=== PATIENT | male | born 1945 | race African-American/Black ===

== ENCOUNTER → 2016-07-09 | Outpatient (CLI) | payer MEDICARE, MEDICAID ==
[2016-07-09] VITALS (11 sets, daily range): BP systolic 103–144; BP diastolic 44–78
[~2016-07-09] MED LIST: AGGRENOX 25 MG-1 CER PO; AVPAK LEVETIRA500 MG PO; AVPAK LEVETIRA750 M1 PO; BENAZEPRIL10 MG PO; CADUET 10 MG-201 TA1 PO; CIPROFLOXACIN500 MG PO; FOSAMAX70 M1 PO; KEFLEX500 MG PO; LEVAQUIN750 M1 PO; LEVETIRACETAM500 MG PO; LIPITOR40 MG PO; LIQUID MAGNESI400 MG PO; MOTRIN800 MG PO; Meclizine25 MG PO; NEURONTIN300 MG PO; NEXIUM40 MG PO; OYSTER CALCIUM1 TA3 PO; OYSTER SHELL CA1 TA4 PO; PERCOCET 325 MG1 TA2 PO; PREDNISONE10 MG PO; PREVACID30 M1 PO; TAMSULOSIN HCL0.4 MG PO; TRAMADOL HCL50 MG PO; VITAMIN D50000 I3 PO
[2016-07-09 09:29] LABS: HEMATOCRIT 22.6 % (42.0-52.0); HEMOGLOBIN 7.2 g/dl (14.0-18.0); MEAN CELL VOLUME 96.2 fl (80.0-94.0); MEAN CORPUSCULAR HGB 30.6 pg (27.0-31.0); MEAN CORPUSCULAR HGB CONC 31.9 g/dl (33.0-37.0); MEAN PLATELET VOLUME 10.2 fl (9.6-12.3); PLATELET COUNT AUTOMATED 223 10*3/uL (130-400); RED BLOOD COUNT 2.35 10*6/uL (4.50-5.90); RED CELL DISTRI WIDTH 16.3 % (0-14.5)
[2016-07-09 09:55] LABS: ATYPICAL LYMPHS 1 % (0-0); LYMPHOCYTE # 0.7 10*3/uL (1.3-4.4); MONOCYTE # 0.3 10*3/uL (0.1-1.0); NEUTROPHIL # 0.4 10*3/uL (2.3-7.9); NEUTROPHILS 29 % (47-73); PLATELET SUFFICIENCY NORMAL (NORMAL); POLYCHROMASIA SLIGHT; SCHISTOCYTES FEW; TOTAL CELLS COUNTED 100 #CELLS
[2016-07-09 09:58] LABS: WHITE BLOOD COUNT 1.5 10*3/uL (4.8-10.8)
== END | disposition home or self-care (01) ==
LOC: TRNFUSION 02:20
PROVIDERS: Internal Medicine Hematology & Oncology
DX: C34.11 Malignant neoplasm of upper lobe, right bronchus or lung (principal)

== ENCOUNTER 2016-08-16 21:27 | Inpatient (IN) | payer MEDICAID ==
[~2016-08-16] VITALS: Ht 182.8 cm; Wt 72.7 kg
--- NOTE | ~2016-08-16 | PR ---
[place], [place] PROGRESS NOTE NAME: SUKHDEV MCDERMOTT [facility] #: [id number] UNIT #: [id number] ROOM: 511 DOCTOR: AFSANEH PHILLIPS MD BIRTHDATE: [birth year] DOS: 08/24/2016 SUBJECTIVE: The patient is doing much better. REVIEW OF SYSTEMS: HEENT: No trouble swallowing. No double vision. No loss of vision. No pain. ENT AND RESPIRATORY: No wheeze. No change in voice. No cough. No shortness of breath. No coughing up blood. No epistaxis. CARDIOLOGIC: No chest pain. No dizziness. No irregular heartbeat. No leg edema. No palpitations. No shortness of breath. HEMATOLOGIC AND LYMPH: No past transfusion. No fatigue. No loss of appetite. No easy bruising. GASTROENEROLOGIC: No change in bowel habits. No vomiting blood. No abdominal cramping. No nausea. No vomiting. No diarrhea. No constipation. No blood in stool. MALE REPRODUCTIVE: No testicular pain. No penile discharge. MUSCULOSKELETAL: No back pain. No muscle pain or weakness. No tingling/numbness. UROLOGIC: No pain with urination. No difficulty urinating. No frequent urination. NEUROLOGIC: No burning pain in feet. No trouble with coordination. No loss of consciousness. No headache. No tingling/numbness. No memory loss. PHYSICAL EXAMINATION: GENERAL: Pleasant gentleman, in no apparent distress. VITAL SIGNS: Stable. He is afebrile. HEENT: Normocephalic, atraumatic. NECK AND THYROID: Supple. No JVD, thyromegaly, or lymphadenopathy. HEART: Normal S1, S2. Regular rate and rhythm. LUNGS: Clear to auscultation and percussion. ABDOMEN: Soft. Nontender, nondistended. Bowel sounds present. EXTREMITIES: Normal ROM. No clubbing. No edema. LABORATORY DATA: White count 2.1, hemoglobin 8.6, hematocrit 25.6, platelet count 30,000. ANC 800. ASSESSMENT: 1. Metastatic lung cancer, responding to chemotherapy. 2. Pancytopenia secondary to chemotherapy, which is improving. 3. Anemia of neoplastic disorder, status post multiple units of packed red blood cells. PLAN: Overall, he is doing much better. The patient will be going home soon. Advised if any fever or chills, to call us. The patient is not bleeding or bruising at this time. We will also discuss with Dr. Alvarez. [place], [place] PROGRESS NOTE NAME: SUKHDEV MCDERMOTT UNIT #: [id number] ROOM: [facility] DOCTOR: AFSANEH PHILLIPS MD BIRTHDATE: [birth year] AFSANEH PHILLIPS MD CM:PNTRANS [phone] AFSANEH PHILLIPS MD 08/25/16 0927 interface
--- NOTE | ~2016-08-16 | PR ---
[place], [place] PROGRESS NOTE NAME: SUKHDEV MCDERMOTT [facility] #: [id number] UNIT #: [id number] ROOM: 511 DOCTOR: ROBERT FRANCO MD BIRTHDATE: [birth year] DOS: The patient has been admitted to the hospital with pancytopenia due to chemotherapy. He has history of carcinoma of the right lung and has had radiation therapy before, chemotherapy now, history of hypotension, pneumonitis and sepsis in the past with COPD and emphysema. The patient seemed to be fairly comfortable. Not in any distress. Chest x-ray shows slightly increased patchy density in the perihilar right upper lobe. CBC showed white count 1700, RBC 2.84, hemoglobin 8.7, platelet count is 22, neutrophil 57, lymphocyte 25, eosinophil 11 and neutrophil is 1. The patient is being seen by Dr. Tilley, who is tax assistant/oncologist who is taking care of this patient before. His blood pressure 100/50, pulse 82, respirations 18, temperature 98.8. ROBERT FRANCO MD CM:PNTRANS [id number] [id number] ROBERT FRANCO MD 08/23/16 0522 interface
--- NOTE | ~2016-08-16 | PR ---
[place], [place] PROGRESS NOTE NAME: SUKHDEV MCDERMOTT [facility] #: [id number] UNIT #: [id number] ROOM: 511 DOCTOR: AFSANEH PHILLIPS MD BIRTHDATE: [birth year] DOS: 08/18/2016 SUBJECTIVE: The patient is doing much better. He is sitting on the side of the bed and eating his breakfast. REVIEW OF SYSTEMS HEENT: No trouble swallowing. No double vision. No loss of vision. No pain. ENT AND RESPIRATORY: No wheeze. No change in voice. No cough. No shortness of breath. No coughing up blood. No epistaxis. CARDIOLOGIC: No chest pain. No dizziness. No irregular heartbeat. No leg edema. No palpitations. No shortness of breath. HEMATOLOGIC AND LYMPH: No past transfusion. No fatigue. No loss of appetite. No easy bruising. GASTROENTEROLOGIC: No change in bowel habits. No vomiting blood. No abdominal cramping. No nausea. No vomiting. No diarrhea. No constipation. No blood in stool. MALE REPRODUCTIVE: No testicular pain. No penile discharge. MUSCULOSKELETAL: No back pain. No muscle pain or weakness. No tingling/numbness. UROLOGIC: No pain with urination. No difficulty urinating. No frequent urination. NEUROLOGIC: No burning pain in feet. No trouble with coordination. No loss of consciousness. No headache. No tingling/numbness. No memory loss. PHYSICAL EXAMINATION: GENERAL: He is a pleasant gentleman in no apparent distress. VITAL SIGNS: Stable. He is afebrile. HEENT: Normocephalic, atraumatic NECK AND THYROID: Supple. No JVD, thyromegaly, or lymphadenopathy. HEART: Normal S1, S2. Regular rate and rhythm. LUNGS: Clear to auscultation and percussion. ABDOMEN: Soft. Nontender, nondistended. Bowel sounds present. EXTREMITIES: Normal ROM. No clubbing. No edema. LABORATORY DATA: White count of 1.1, hemoglobin 9.2, hematocrit 27.5, platelet count of 49,000, ANC of 700, glucose of 89. EGFR is more than 60. Sodium 146, potassium 4.4, chloride 111, bicarbonate 27, calcium 8.0. ASSESSMENT: 1. Metastatic nonsmall cell lung cancer with response to chemotherapy. 2. Pancytopenia secondary to chemotherapy. 3. Status post multiple units of platelets. PLAN: We can continue growth factors. His counts are getting better. If counts are getting better, we will keep a close watch at this time. Advised if any bleeding, bruising, petechiae to call us. Otherwise, close followup. I discussed these findings with the patient's sister also. Ample time was given to the family to ask me questions. [place], [place] PROGRESS NOTE NAME: SUKHDEV MCDERMOTT UNIT #: [id number] ROOM: 511 DOCTOR: AFSANEH PHILLIPS MD BIRTHDATE: [birth year] AFSANEH PHILLIPS MD CM:PNTRANS [id number] AFSANEH PHILLIPS MD 08/18/162106 interface
--- NOTE | ~2016-08-16 | PR ---
[place], [place] PROGRESS NOTE NAME: SUKHDEV MCDERMOTT [facility] #: [id number] UNIT #: [id number] ROOM: 511 DOCTOR: AFSANEH PHILLIPS MD BIRTHDATE: [birth year] DOS: 08/23/2016 SUBJECTIVE: The patient is doing much better. He is feeling good. REVIEW OF SYSTEMS: HEENT: No trouble swallowing. No double vision. No loss of vision. No pain. ENT AND RESPIRATORY: No wheeze. No change in voice. No cough. No shortness of breath. No coughing up blood. No epistaxis. CARDIOLOGIC: No chest pain. No dizziness. No irregular heartbeat. No leg edema. No palpitations. No shortness of breath. HEMATOLOGIC AND LYMPH: No past transfusion. No fatigue. No loss of appetite. No easy bruising. GASTROENEROLOGIC: No change in bowel habits. No vomiting blood. No abdominal cramping. No nausea. No vomiting. No diarrhea. No constipation. No blood in stool. MALE REPRODUCTIVE: No testicular pain. No penile discharge. MUSCULOSKELETAL: No back pain. No muscle pain or weakness. No tingling/numbness. UROLOGIC: No pain with urination. No difficulty urinating. No frequent urination. NEUROLOGIC: No burning pain in feet. No trouble with coordination. No loss of consciousness. No headache. No tingling/numbness. No memory loss. PHYSICAL EXAMINATION: GENERAL: Pleasant gentleman, in no apparent distress. VITAL SIGNS: Stable. He is afebrile. HEENT: Normocephalic, atraumatic. NECK AND THYROID: Supple. No JVD, thyromegaly, or lymphadenopathy. HEART: Normal S1, S2. Regular rate and rhythm. LUNGS: Clear to auscultation and percussion. ABDOMEN: Soft. Nontender, nondistended. Bowel sounds present. EXTREMITIES: Normal ROM. No clubbing. No edema. LABORATORY DATA: White count of 1.9, hemoglobin of 9.0, hematocrit 26.9, platelet count of 35,000. ASSESSMENT: 1. Pancytopenia, which is improving. 2. Thrombocytopenia is improving. 3. Nonsmall cell lung cancer. PLAN: Overall, he is doing better. I expect the counts to improve further. In the meantime, continue present management. Discussed with the patient. [place], [place] PROGRESS NOTE NAME: SUKHDEV MCDERMOTT UNIT #: [id number] ROOM: 511 DOCTOR: AFSANEH PHILLIPS MD BIRTHDATE: [birth year] AFSANEH PHILLIPS MD CM:PNYRIS 19 AFSANEH PHILLIPS MD 08/23/162120 interface
--- NOTE | ~2016-08-16 | CON ---
[place], [place] REPORT OF CONSULTATION NAME: SUKHDEV MCDERMOTT [facility] #: [id number] UNIT #: [id number] ROOM: 511 DOCTOR: AFSANEH PHILLIPS MD BIRTHDATE: [birth year] DOS: 08/17/2016 REPORT TO THE [employer] HISTORY OF PRESENT ILLNESS: The patient is a pleasant 71-year-old black gentleman with a history of metastatic lung cancer, undergoing treatment. The last PET scan showed a response to treatment. He was in the office and a CBC was drawn. In the evening, I was called that she has pancytopenia with a platelet count of 8000 and subsequently was advised to go to the Emergency Room for further evaluation and management. Subsequently was admitted and consulted for further treatment followup. PAST MEDICAL HISTORY: Significant for metastatic lung cancer with response to chemotherapy, history of COPD, GERD, history of epilepsy, history of stroke, hyperlipidemia, osteoporosis, and peripheral neuropathy. PAST SURGICAL HISTORY: Right knee surgery, history of cholecystectomy. SOCIAL HISTORY: Current smoker. He smoked 2 packs per day for a long time. Denies any drug or alcohol use. FAMILY HISTORY: Father of unknown cause. Mother at age 60. ALLERGIES: No allergies. MEDICATIONS: Fosamax, Aggrenox, Lipitor, oyster calcium, vitamin D, Nexium, Neurontin, ____, meclizine, and Ultram. REVIEW OF SYSTEMS CONSTITUTIONAL: No chills. No fatigue. No fever. No loss of appetite. No night sweats. No weakness. No weight loss. HEENT: No trouble swallowing. No loss of smell. No loss of hearing. No double vision. No pain. No discharge. ENT AND RESPIRATORY: No wheeze. No sore throat. No change in voice. No hearing loss. No nose bleed. No cough. No trouble breathing through nose. No shortness of breath. No coughing up blood. No epistaxis. CARDIOVASCULAR: No chest pain. No dizziness. No irregular heartbeat. No leg edema. No pain in legs while walking. No palpitations. No shortness of breath. DERMATOLOGIC: No acne. No hives. No laceration. No mole. No rash. ENDOCRINE: No cold intolerance. No diabetes. No fatigue. No hot flashes. No polydipsia. No polyuria. No urinating frequently. No weight loss. HEMATOLOGIC AND LYMPH: No fatigue. No easy bruising. GASTROENTEROLOGIC: No change in bowel habits. No indigestion. No frequent bloating. No vomiting blood. No abdominal cramping. No nausea. No heartburn. No vomiting. No abdominal pain. No dysphagia. No diarrhea. No constipation. No blood in stool. MALE REPRODUCTIVE: No testicular pain. No difficulty with erection. No diminished sexual drive. No penile discharge. MUSCULOSKELETAL: No back pain. No muscle pain or weakness. No neck pain. No [place], [place] REPORT OF CONSULTATION NAME: SUKHDEV MCDERMOTT UNIT #: [id number] ROOM: 511 DOCTOR: AFSANEH PHILLIPS MD BIRTHDATE: [birth year] tingling/numbness. No swelling/bruising. No osteoporosis treatment. OPTHALMOLOGIC: No double vision. No diminished vision. No loss of vision. UROLOGIC: No dysuria. No frequent nighttime urination. No pain with urination. No difficulty urinating. No blood in urine. No frequent urination. No urinary incontinence. NEUROLOGIC: No loss of sensation in specific body area. No vertigo. No burning pain in feet. No trouble with balance. No trouble with coordination. No loss of consciousness. No loss of feeling/power. No confusion. No headache. No tingling/numbness. PSYCHOLOGIC: No tinnitus. No headaches. No shortness of breath. No weight decrease. No nausea. No vomiting. No abdominal discomfort. No constipation. No diarrhea. No depression. No anxiety. PHYSICAL EXAMINATION: GENERAL: General appearance: Pleasant gentleman in no apparent distress. VITAL SIGNS: Blood pressure is 164/68, respirations 18, pulse 69, temperature 98.7. HEENT: Oral mucosa appears intact. The external ears are normal in appearance. Nares are patent without lesions, exudates, erythema, or inflammation. Tongue is symmetrical. Uvula is midline. NECK AND THYROID: Neck supple without palpable masses. Trachea is midline. No thyromegaly. No carotid bruit or JVD. BREASTS: Normal. Nipples unremarkable. No drainage. No lumps felt on either side. HEART: Normal S1, S2, without significant murmur, rub, or gallop. LUNGS: Clear to auscultation and percussion with good air entry bilaterally. The patient is breathing easily without the use of accessory muscles. Diaphragmatic excursions are intact. ABDOMEN: No costovertebral angle tenderness. Soft. No organomegaly or masses. Nontender. No hernias present. Liver and spleen are not palpable. LYMPHATIC: No adenopathy noted in the cervical, supraclavicular, axillary, or inguinal regions. NEUROLGIC: Nonfocal. Oriented to person, place, and time. MENTAL STATUS: Appropriate for mood and affect. PERIPHERAL PULSES: No varicosities. Femoral and pedal pulses are palpable. EXTREMITIES: Without cyanosis, clubbing, or edema. No gross anomalies. LABORATORY DATA: Sodium 146, potassium 4.4, chloride 111, bicarbonate 27, BUN 25, EGFR is more than 60. White count of 4.9, hemoglobin 9.3, hematocrit 28.0, platelet count of 61,000. From 08/16/2016, white count of 1.0, hemoglobin 9.0, hematocrit 27.5, MCV 93.2, and platelet count of 7000. ASSESSMENT: 1. Pancytopenia secondary to chemotherapy. 2. Thrombocytopenia secondary to chemotherapy. 3. Metastatic lung cancer. 4. Gastroesophageal reflux disease. PLAN: The patient got 6 units of packed RBC and was started on growth factors. He is on isolation at this point. If he starts experiencing fever, he needs [place], [place] REPORT OF CONSULTATION NAME: SUKHDEV MCDERMOTT UNIT #: [id number] ROOM: [facility] DOCTOR: AFSANEH PHILLIPS MD BIRTHDATE: [birth year] antibiotics ____ close followup until counts get better, then discharge. I had detailed discussion with the patient about it, seemed to understand it. Also discussed with the daughter. Ample time was given for the family to ask me questions. Thanks for consulting and letting me participate in the care of this interesting patient. AFSANEH PHILLIPS MD CM:CONSTR:REPORT OF CONSULTATION 1602 08/18/16 0357 interface
--- NOTE | ~2016-08-16 | PR ---
[place], [place] PROGRESS NOTE NAME: SUKHDEV MCDERMOTT [facility] #: [id number] UNIT #: [id number] ROOM: 511 DOCTOR: AFSANEH PHILLIPS MD BIRTHDATE: [birth year] DOS: 08/20/2016 SUBJECTIVE: The patient is doing much better. REVIEW OF SYSTEMS: HEENT: No trouble swallowing. No double vision. No loss of vision. No pain. ENT AND RESPIRATORY: No wheeze. No change in voice. No cough. No shortness of breath. No coughing up blood. No epistaxis. CARDIOLOGIC: No chest pain. No dizziness. No irregular heartbeat. No leg edema. No palpitations. No shortness of breath. HEMATOLOGIC AND LYMPH: No past transfusion. No fatigue. No loss of appetite. No easy bruising. GASTROENEROLOGIC: No change in bowel habits. No vomiting blood. No abdominal cramping. No nausea. No vomiting. No diarrhea. No constipation. No blood in stool. MALE REPRODUCTIVE: No testicular pain. No penile discharge. MUSCULOSKELETAL: No back pain. No muscle pain or weakness. No tingling/numbness. UROLOGIC: No pain with urination. No difficulty urinating. No frequent urination. NEUROLOGIC: No burning pain in feet. No trouble with coordination. No loss of consciousness. No headache. No tingling/numbness. No memory loss. PHYSICAL EXAMINATION: GENERAL: Pleasant gentleman, in no apparent distress. VITAL SIGNS: Stable. Blood pressure 126/58, respirations 18, pulse 81, temperature 98.5. HEENT: Normocephalic, atraumatic. NECK AND THYROID: Supple. No JVD, thyromegaly, or lymphadenopathy. HEART: Normal S1, S2. Regular rate and rhythm. LUNGS: Clear to auscultation and percussion. ABDOMEN: Soft. Nontender, nondistended. Bowel sounds present. EXTREMITIES: Normal ROM. No clubbing. No edema. LABORATORY DATA: Sodium 146, potassium 4.3, chloride 114, bicarb 22, BUN 22, EGFR more than 60. AST 13, ALT 17. White count of 1.4, hemoglobin 7.9, hematocrit 23.4, platelet count of 25,000. ASSESSMENT: 1. Pancytopenia secondary to chemotherapy. 2. Progressive anemia of neoplastic disorder. 3. Neutropenia. 4. Gastroesophageal reflux disease. PLAN: We will give a couple of units of packed RBCs. In addition, we will continue growth factors. Overall, he is doing much better, advised to ambulate. The sister was present at the time of discussion. [place], [place] PROGRESS NOTE NAME: SUKHDEV MCDERMOTT UNIT #: [id number] ROOM: [facility] DOCTOR: AFSANEH PHILLIPS MD BIRTHDATE: [birth year] AFSANEH PHILLIPS MD CM:PNYRIS 1451 [id number] AFSANEH PHILLIPS MD 08/21/16 0416 interface
--- NOTE | ~2016-08-16 | PR ---
[place], [place] PROGRESS NOTE [facility] [id number] UNIT #: [id number] ROOM: 511 DOCTOR: AFSANEH PHILLIPS MD BIRTHDATE: [birth year] DOS: 08/19/2016 SUBJECTIVE: The patient is doing much better, feels good. OBJECTIVE: GENERAL: Pleasant gentleman, in no apparent distress. VITAL SIGNS: Blood pressure 137/71, respirations 20, pulse 90, temperature 98.0. HEENT: Normocephalic, atraumatic NECK AND THYROID: Supple. No JVD, thyromegaly, or lymphadenopathy. HEART: Normal S1, S2. Regular rate and rhythm. LUNGS: Clear to auscultation and percussion. ABDOMEN: Soft. Nontender, nondistended. Bowel sounds present. EXTREMITIES: Normal ROM. No clubbing. No edema. LABORATORY DATA: White count of 1.1, hemoglobin 8.3, hematocrit 24.5, platelet count of 33,000. ANC of 700. Glucose 87, BUN 22, EGFR is more than 60, sodium 144, potassium 4.1, chloride 111, bicarbonate 23, calcium 7.7, total protein 6.2. SGOT 13, SGPT 17. ASSESSMENT: 1. Pancytopenia secondary to chemotherapy, which is improving. 2. Metastatic lung cancer. 3. Thrombocytopenia, which is getting better. PLAN: Overall, he is doing much better. We will continue the growth factors, and we will be also giving him a unit of packed RBC and discussed with the patient. AFSANEH PHILLIPS MD CM:PNTRANS 0840 AFSANEH PHILLIPS MD 08/19/1625 interface
--- NOTE | ~2016-08-16 | PR ---
[place], [place] PROGRESS NOTE NAME: SUKHDEV MCDERMOTT [facility] #: [id number] UNIT #: [id number] ROOM: 511 DOCTOR: AFSANEH PHILLIPS MD BIRTHDATE: [birth year] DOS: 08/21/2016 SUBJECTIVE: The patient is doing better. He got one unit of blood, and he developed fever. Subsequently, blood cultures were sent his fever subsided. REVIEW OF SYSTEMS HEENT: No trouble swallowing. No double vision. No loss of vision. No pain. ENT AND RESPIRATORY: No wheeze. No change in voice. No cough. No shortness of breath. No coughing up blood. No epistaxis. CARDIOLOGIC: No chest pain. No dizziness. No irregular heartbeat. No leg edema. No palpitations. No shortness of breath. HEMATOLOGIC AND LYMPH: No past transfusion. No fatigue. No loss of appetite. No easy bruising. GASTROENEROLOGIC: No change in bowel habits. No vomiting blood. No abdominal cramping. No nausea. No vomiting. No diarrhea. No constipation. No blood in stool. MALE REPRODUCTIVE: No testicular pain. No penile discharge. MUSCULOSKELETAL: No back pain. No muscle pain or weakness. No tingling/numbness. UROLOGIC: No pain with urination. No difficulty urinating. No frequent urination. NEUROLOGIC: No burning pain in feet. No trouble with coordination. No loss of consciousness. No headache. No tingling/numbness. No memory loss. PHYSICAL EXAMINATION GENERAL: Pleasant gentleman in no apparent distress. VITAL SIGNS: Stable. He is afebrile. HEENT: Normocephalic, atraumatic. NECK AND THYROID: Supple. No JVD, thyromegaly, or lymphadenopathy. HEART: Normal S1, S2. Regular rate and rhythm. LUNGS: Clear to auscultation and percussion. ABDOMEN: Soft. Nontender, nondistended. Bowel sounds present. EXTREMITIES: Normal ROM. No clubbing. No edema. LABORATORY DATA: White count of 1.7, hemoglobin of 8.7, hematocrit 25.6, platelet count 22,000, ANC 1000. Glucose of 83, BUN of 20, EGFR is more than 60, sodium 146, potassium 3.9, chloride 113, bicarbonate 23, calcium 7.8. ASSESSMENT: 1. Nonsmall cell lung cancer with response to chemotherapy. 2. Pancytopenia secondary to chemotherapy. 3. Status post 1 unit of packed red blood cells. 4. History of epilepsy. PLAN: Overall, he is doing much better. The patient was advised to ambulate. He will continue growth factors. He may need another unit of blood before discharge. The patient was started on broad spectrum antibiotics by resident. We will wait for the blood cultures to come back. Depending upon that, further intervention. I had a detailed discussion with the patient about it and seemed [place], [place] PROGRESS NOTE NAME: SUKHDEV MCDERMOTT UNIT #: [id number] ROOM: 511 DOCTOR: JACQUELINE CLARKE,AFSANEH BIRTHDATE: [birth year] to understand it. Ample time was given to the patient to ask me questions. AFSANEH PHILLIPS MD CM:PNTRANS [id number] AFSANEH PHILLIPS MD 08/22/16 1106 interface
--- NOTE | ~2016-08-16 | PR ---
[place], [place] PROGRESS NOTE NAME: SUKHDEV MCDERMOTT [facility] #: [id number] UNIT #: [id number] ROOM: 511 DOCTOR: ROBERT FRANCO MD BIRTHDATE: [birth year] DOS: SUBJECTIVE: The patient is admitted to hospital with non-small cell lung carcinoma responding to chemotherapy, ____ pancytopenia secondary to chemotherapy. He is gradually getting better and is being seen by Dr. Tilley. Blood culture and sensitivity did not grow any bacteria. CBC today showed white count of ____, RBC 2.77, hemoglobin 8.5, 48% neutrophils, 24% lymphocytes, 83% monocyte, 7% eosinophil, 3% myelocytes and this CBC slightly better than yesterday, not too much difference except 0.1% better. Chest x-ray shows slightly increased patchy density in the perihilar area right upper lobe, otherwise no significant change. OBJECTIVE: VITAL SIGNS: Blood pressure is 130/60, pulse 70, respirations 18, temperature 98.4. HEART: Regular. CHEST: Occasional wheeze. No crepitation. Rest of examination unremarkable. ROBERT FRANCO MD CM:PNTRANS 1412 0159 ROBERT FRANCO MD 08/23/16 0245 interface
[~2016-08-16 21:27] MED LIST changes: -LEVETIRACETAM500 MG PO; -Meclizine25 MG PO
[2016-08-16 22:30] LABS: HEMATOCRIT 27.5 % (42.0-52.0); MEAN CELL VOLUME 93.2 fl (80.0-94.0); MEAN CORPUSCULAR HGB 30.5 pg (27.0-31.0); MEAN CORPUSCULAR HGB CONC 32.7 g/dl (33.0-37.0); RED BLOOD COUNT 2.95 10*6/uL (4.50-5.90); RED CELL DISTRI WIDTH 16.1 % (0-14.5)
[2016-08-16 22:34] LABS: PLATELET COUNT AUTOMATED 7 10*3/uL (130-400)
[2016-08-16] MEDS ORDERED: Meclizine25 MG PO (22:46)
[2016-08-16 22:48] LABS: BUN 25 mg/dl (7-24); CARBON DIOXIDE 27 mmol/L (21-32); CHLORIDE 111 mmol/L (98-107); EST GLOM FILT AFRICAN AMERICAN > 60 ml/min; GLUCOSE 89 mg/dL (65-99); POTASSIUM 4.4 mmol/L (3.5-5.1); SODIUM 146 mmol/L (136-145)
[2016-08-16 22:56] LABS: LYMPHOCYTE # 0.5 10*3/uL (1.3-4.4); NEUTROPHIL # 0.5 10*3/uL (2.3-7.9); NEUTROPHILS 48 % (47-73); PLATELET SUFFICIENCY LOW (NORMAL); TOTAL CELLS COUNTED 100 #CELLS
[2016-08-17 07:01] LABS: HEMOGLOBIN 9.3 g/dl (14.0-18.0); MEAN CELL VOLUME 92.4 fl (80.0-94.0); MEAN CORPUSCULAR HGB 30.7 pg (27.0-31.0); MEAN CORPUSCULAR HGB CONC 33.2 g/dl (33.0-37.0); MEAN PLATELET VOLUME 10.3 fl (9.6-12.3); RED BLOOD COUNT 3.03 10*6/uL (4.50-5.90)
[2016-08-17 07:03] LABS: PLATELET COUNT AUTOMATED 61 10*3/uL (130-400)
[2016-08-17 07:34] LABS: LYMPHOCYTE # 0.4 10*3/uL (1.3-4.4); NEUTROPHIL # 0.5 10*3/uL (2.3-7.9); NEUTROPHILS 56 % (47-73); PLATELET SUFFICIENCY LOW (NORMAL); TEAR DROP CELLS FEW; TOTAL CELLS COUNTED 50 #CELLS
[2016-08-17 07:38] LABS: WHITE BLOOD COUNT 0.9 10*3/uL (4.8-10.8)
[2016-08-18 07:09] LABS: HEMATOCRIT 27.5 % (42.0-52.0); HEMOGLOBIN 9.2 g/dl (14.0-18.0); MEAN CELL VOLUME 90.8 fl (80.0-94.0); MEAN CORPUSCULAR HGB 30.4 pg (27.0-31.0); MEAN CORPUSCULAR HGB CONC 33.5 g/dl (33.0-37.0); MEAN PLATELET VOLUME 10.2 fl (9.6-12.3); NUCLEATED RED BLOOD CELL 1.8 % (0.0-0.0); PLATELET COUNT AUTOMATED 49 10*3/uL (130-400); RED BLOOD COUNT 3.03 10*6/uL (4.50-5.90); RED CELL DISTRI WIDTH 15.9 % (0-14.5)
[2016-08-18 07:30] LABS: BASOPHILS 2 % (0-1); LYMPHOCYTE # 0.4 10*3/uL (1.3-4.4); NEUTROPHIL # 0.7 10*3/uL (2.3-7.9); NEUTROPHILS 64 % (47-73); PLATELET SUFFICIENCY LOW (NORMAL); POLYCHROMASIA SLIGHT; TEAR DROP CELLS FEW; TOTAL CELLS COUNTED 50 #CELLS
[2016-08-18 07:36] LABS: WHITE BLOOD COUNT 1.1 10*3/uL (4.8-10.8)
[2016-08-19 05:59] LABS: HEMATOCRIT 24.5 % (42.0-52.0); HEMOGLOBIN 8.3 g/dl (14.0-18.0); MEAN CELL VOLUME 90.7 fl (80.0-94.0); MEAN CORPUSCULAR HGB 30.7 pg (27.0-31.0); MEAN CORPUSCULAR HGB CONC 33.9 g/dl (33.0-37.0); MEAN PLATELET VOLUME 9.4 fl (9.6-12.3)
[2016-08-19 06:09] LABS: ALKALINE PHOSPHATASE 88 U/L (45-117); BILIRUBIN, TOTAL 0.3 mg/dl (0.2-1.0); BUN 22 mg/dl (7-24); CARBON DIOXIDE 23 mmol/L (21-32); CHLORIDE 111 mmol/L (98-107); EST GLOM FILT AFRICAN AMERICAN > 60 ml/min; GLUCOSE 87 mg/dL (65-99); POTASSIUM 4.1 mmol/L (3.5-5.1); SGOT/AST 13 IU/L (3-35); SGPT/ALT 17 U/L (12-78); SODIUM 144 mmol/L (136-145); TOTAL PROTEIN 6.2 gm/dL (6.4-8.2)
[2016-08-19 06:12] LABS: PLATELET COUNT AUTOMATED 33 10*3/uL (130-400)
[2016-08-19 06:51] LABS: EOSINOPHIL # 0.1 10*3/uL (0-0.4); EOSINOPHILS 6 % (1-4); LYMPHOCYTE # 0.3 10*3/uL (1.3-4.4); NEUTROPHIL # 0.7 10*3/uL (2.3-7.9); NEUTROPHILS 61 % (47-73); OVALOCYTES FEW; PLATELET SUFFICIENCY LOW (NORMAL); POLYCHROMASIA SLIGHT; TEAR DROP CELLS FEW; TOTAL CELLS COUNTED 54 #CELLS
[2016-08-19 06:54] LABS: WHITE BLOOD COUNT 1.1 10*3/uL (4.8-10.8)
[2016-08-19 13:29] LABS: HEMATOCRIT 27.6 % (42.0-52.0); MEAN CELL VOLUME 93.6 fl (80.0-94.0); MEAN CORPUSCULAR HGB 30.5 pg (27.0-31.0); MEAN CORPUSCULAR HGB CONC 32.6 g/dl (33.0-37.0); MEAN PLATELET VOLUME 9.8 fl (9.6-12.3); PLATELET COUNT AUTOMATED 35 10*3/uL (130-400); RED BLOOD COUNT 2.95 10*6/uL (4.50-5.90); RED CELL DISTRI WIDTH 15.9 % (0-14.5)
[2016-08-19 13:44] LABS: BUN 18 mg/dl (7-24); CARBON DIOXIDE 17 mmol/L (21-32); CHLORIDE 106 mmol/L (98-107); CKMB 1.2 ng/ml (0.5-3.6); CPK 216 U/L (39-308); EST GLOM FILT AFRICAN AMERICAN > 60 ml/min; GLUCOSE 74 mg/dL (65-99); LDH 200 U/L (87-241); POTASSIUM 3.8 mmol/L (3.5-5.1); SODIUM 142 mmol/L (136-145)
[2016-08-19 13:48] LABS: BURR CELLS FEW; LYMPHOCYTE # 0.4 10*3/uL (1.3-4.4); NEUTROPHIL # 0.5 10*3/uL (2.3-7.9); NEUTROPHILS 52 % (47-73); PLATELET SUFFICIENCY LOW (NORMAL); TEAR DROP CELLS FEW; TOTAL CELLS COUNTED 50 #CELLS; TROPONIN I < 0.015 ng/ml (<0.045)
[2016-08-19 13:51] LABS: WHITE BLOOD COUNT 0.9 10*3/uL (4.8-10.8)
[2016-08-19] MEDS ORDERED: LEVETIRACETAM500 MG PO (17:20)
[2016-08-20 06:59] LABS: HEMATOCRIT 23.4 % (42.0-52.0); HEMOGLOBIN 7.9 g/dl (14.0-18.0); MEAN CORPUSCULAR HGB 30.5 pg (27.0-31.0); MEAN CORPUSCULAR HGB CONC 33.8 g/dl (33.0-37.0); MEAN PLATELET VOLUME 9.3 fl (9.6-12.3); NUCLEATED RED BLOOD CELL 1.5 % (0.0-0.0); RED BLOOD COUNT 2.59 10*6/uL (4.50-5.90); RED CELL DISTRI WIDTH 15.9 % (0-14.5)
[2016-08-20 07:06] LABS: ALBUMIN 2.8 gm/dl (3.1-4.5); ALKALINE PHOSPHATASE 84 U/L (45-117); BILIRUBIN, TOTAL 0.3 mg/dl (0.2-1.0); BUN 22 mg/dl (7-24); CARBON DIOXIDE 22 mmol/L (21-32); CHLORIDE 114 mmol/L (98-107); EST GLOM FILT AFRICAN AMERICAN > 60 ml/min; GLUCOSE 93 mg/dL (65-99); POTASSIUM 4.3 mmol/L (3.5-5.1); SGOT/AST 13 IU/L (3-35); SGPT/ALT 17 U/L (12-78); SODIUM 146 mmol/L (136-145)
[2016-08-20 07:14] LABS: MEAN CELL VOLUME 90.3 fl (80.0-94.0)
[2016-08-20 07:29] LABS: EOSINOPHILS 3 % (1-4); LYMPHOCYTE # 0.5 10*3/uL (1.3-4.4); MONOCYTE # 0.1 10*3/uL (0.1-1.0); NEUTROPHIL # 0.7 10*3/uL (2.3-7.9); NEUTROPHILS 53 % (47-73); OVALOCYTES FEW; PLATELET SUFFICIENCY LOW (NORMAL); POLYCHROMASIA SLIGHT; TEAR DROP CELLS FEW; TOTAL CELLS COUNTED 100 #CELLS
[2016-08-20 07:32] LABS: PLATELET COUNT AUTOMATED 25 10*3/uL (130-400); WHITE BLOOD COUNT 1.4 10*3/uL (4.8-10.8)
[2016-08-21 06:54] LABS: HEMATOCRIT 25.6 % (42.0-52.0); HEMOGLOBIN 8.7 g/dl (14.0-18.0); MEAN CELL VOLUME 90.1 fl (80.0-94.0); MEAN CORPUSCULAR HGB 30.6 pg (27.0-31.0); MEAN PLATELET VOLUME 10.3 fl (9.6-12.3); RED BLOOD COUNT 2.84 10*6/uL (4.50-5.90); RED CELL DISTRI WIDTH 15.8 % (0-14.5)
[2016-08-21 07:20] LABS: BUN 20 mg/dl (7-24); CARBON DIOXIDE 23 mmol/L (21-32); EST GLOM FILT AFRICAN AMERICAN > 60 ml/min; GLUCOSE 83 mg/dL (65-99)
[2016-08-21 07:21] LABS: EOSINOPHIL # 0.2 10*3/uL (0-0.4); EOSINOPHILS 11 % (1-4); HYPOCHROMIA SLIGHT; LYMPHOCYTE # 0.4 10*3/uL (1.3-4.4); MONOCYTE # 0.1 10*3/uL (0.1-1.0); NEUTROPHILS 57 % (47-73); PLATELET SUFFICIENCY LOW (NORMAL); PROMYELOCYTES 1 % (0-0); ROULEAUX MODERATE; SCHISTOCYTES FEW; TOTAL CELLS COUNTED 100 #CELLS
[2016-08-21 07:23] LABS: CHLORIDE 113 mmol/L (98-107); POTASSIUM 3.9 mmol/L (3.5-5.1); SODIUM 146 mmol/L (136-145)
[2016-08-21 07:24] LABS: WHITE BLOOD COUNT 1.7 10*3/uL (4.8-10.8)
[2016-08-21 07:25] LABS: PLATELET COUNT AUTOMATED 22 10*3/uL (130-400)
[2016-08-22 06:22] LABS: HEMOGLOBIN 8.5 g/dl (14.0-18.0); MEAN CELL VOLUME 90.3 fl (80.0-94.0); MEAN CORPUSCULAR HGB 30.7 pg (27.0-31.0); MEAN PLATELET VOLUME 11.5 fl (9.6-12.3); NUCLEATED RED BLOOD CELL 1.1 % (0.0-0.0); RED BLOOD COUNT 2.77 10*6/uL (4.50-5.90); RED CELL DISTRI WIDTH 15.9 % (0-14.5)
[2016-08-22 06:40] LABS: EOSINOPHIL # 0.1 10*3/uL (0-0.4); EOSINOPHILS 7 % (1-4); LYMPHOCYTE # 0.4 10*3/uL (1.3-4.4); MONOCYTE # 0.3 10*3/uL (0.1-1.0); MYELOCYTES 3 % (0-0); NEUTROPHIL # 0.9 10*3/uL (2.3-7.9); NEUTROPHILS 48 % (47-73); PLATELET SUFFICIENCY LOW (NORMAL); POLYCHROMASIA SLIGHT; ROULEAUX MODERATE; SCHISTOCYTES FEW; TOTAL CELLS COUNTED 100 #CELLS
[2016-08-22 06:43] LABS: PLATELET COUNT AUTOMATED 19 10*3/uL (130-400); WHITE BLOOD COUNT 1.8 10*3/uL (4.8-10.8)
[2016-08-23 00:05] LABS: LEVETIRACETAM (KEPPRA) 716936 None Detected ug/mL (10.0-40.0)
[2016-08-23 06:08] LABS: HEMATOCRIT 26.9 % (42.0-52.0); MEAN CELL VOLUME 91.8 fl (80.0-94.0); MEAN CORPUSCULAR HGB 30.7 pg (27.0-31.0); MEAN CORPUSCULAR HGB CONC 33.5 g/dl (33.0-37.0); MEAN PLATELET VOLUME 10.6 fl (9.6-12.3); NUCLEATED RED BLOOD CELL 1.1 % (0.0-0.0); RED BLOOD COUNT 2.93 10*6/uL (4.50-5.90); RED CELL DISTRI WIDTH 16.2 % (0-14.5)
[2016-08-23 06:11] LABS: PLATELET COUNT AUTOMATED 35 10*3/uL (130-400)
[2016-08-23 06:46] LABS: EOSINOPHIL # 0.2 10*3/uL (0-0.4); EOSINOPHILS 12 % (1-4); LYMPHOCYTE # 0.7 10*3/uL (1.3-4.4); MONOCYTE # 0.5 10*3/uL (0.1-1.0); NEUTROPHIL # 0.5 10*3/uL (2.3-7.9); NEUTROPHILS 28 % (47-73); TOTAL CELLS COUNTED 50 #CELLS
[2016-08-23 06:47] LABS: PLATELET SUFFICIENCY LOW (NORMAL); POLYCHROMASIA SLIGHT
[2016-08-23 06:48] LABS: WHITE BLOOD COUNT 1.9 10*3/uL (4.8-10.8)
[2016-08-24 07:09] LABS: HEMATOCRIT 25.6 % (42.0-52.0); HEMOGLOBIN 8.6 g/dl (14.0-18.0); MEAN CELL VOLUME 91.8 fl (80.0-94.0); MEAN CORPUSCULAR HGB 30.8 pg (27.0-31.0); MEAN CORPUSCULAR HGB CONC 33.6 g/dl (33.0-37.0); MEAN PLATELET VOLUME 9.3 fl (9.6-12.3); PLATELET COUNT AUTOMATED 30 10*3/uL (130-400); RED BLOOD COUNT 2.79 10*6/uL (4.50-5.90); RED CELL DISTRI WIDTH 16.5 % (0-14.5); WHITE BLOOD COUNT 2.1 10*3/uL (4.8-10.8)
[2016-08-24 07:42] LABS: ALBUMIN 2.5 gm/dl (3.1-4.5); ALKALINE PHOSPHATASE 81 U/L (45-117); BILIRUBIN, TOTAL 0.2 mg/dl (0.2-1.0); BUN 20 mg/dl (7-24); CARBON DIOXIDE 24 mmol/L (21-32); CHLORIDE 114 mmol/L (98-107); EOSINOPHIL # 0.1 10*3/uL (0-0.4); EOSINOPHILS 6 % (1-4); EST GLOM FILT AFRICAN AMERICAN > 60 ml/min; GLUCOSE 82 mg/dL (65-99); LYMPHOCYTE # 0.9 10*3/uL (1.3-4.4); MONOCYTE # 0.3 10*3/uL (0.1-1.0); NEUTROPHIL # 0.8 10*3/uL (2.3-7.9); NEUTROPHILS 40 % (47-73); POTASSIUM 3.8 mmol/L (3.5-5.1); SGOT/AST 10 IU/L (3-35); SGPT/ALT 21 U/L (12-78); SODIUM 148 mmol/L (136-145); TOTAL CELLS COUNTED 50 #CELLS; TOTAL PROTEIN 5.7 gm/dL (6.4-8.2)
[2016-08-24 07:43] LABS: PLATELET SUFFICIENCY LOW (NORMAL); POLYCHROMASIA SLIGHT; TOXIC GRANULATION SLIGHT
[2016-08-25 07:23] LABS: HEMATOCRIT 25.9 % (42.0-52.0); HEMOGLOBIN 8.4 g/dl (14.0-18.0); MEAN CELL VOLUME 93.2 fl (80.0-94.0); MEAN CORPUSCULAR HGB 30.2 pg (27.0-31.0); MEAN CORPUSCULAR HGB CONC 32.4 g/dl (33.0-37.0); MEAN PLATELET VOLUME 11.5 fl (9.6-12.3); RED BLOOD COUNT 2.78 10*6/uL (4.50-5.90); RED CELL DISTRI WIDTH 16.6 % (0-14.5)
[2016-08-25 07:26] LABS: PLATELET COUNT AUTOMATED 62 10*3/uL (130-400)
[2016-08-25 07:46] LABS: BUN 15 mg/dl (7-24); CARBON DIOXIDE 24 mmol/L (21-32); CHLORIDE 114 mmol/L (98-107); EST GLOM FILT AFRICAN AMERICAN > 60 ml/min; GLUCOSE 72 mg/dL (65-99); POTASSIUM 3.5 mmol/L (3.5-5.1); SODIUM 149 mmol/L (136-145)
[2016-08-25 07:48] LABS: BURR CELLS FEW; EOSINOPHIL # 0.3 10*3/uL (0-0.4); EOSINOPHILS 16 % (1-4); LYMPHOCYTE # 0.5 10*3/uL (1.3-4.4); METAMYELOCYTES 2 % (0-0); MONOCYTE # 0.5 10*3/uL (0.1-1.0); NEUTROPHIL # 0.4 10*3/uL (2.3-7.9); NEUTROPHILS 24 % (47-73); PLATELET SUFFICIENCY LOW (NORMAL); POLYCHROMASIA SLIGHT; TEAR DROP CELLS FEW; TOTAL CELLS COUNTED 50 #CELLS
[2016-08-25 07:50] LABS: WHITE BLOOD COUNT 1.8 10*3/uL (4.8-10.8)
[2016-08-26 07:04] LABS: HEMATOCRIT 27.9 % (42.0-52.0); HEMOGLOBIN 9.4 g/dl (14.0-18.0); MEAN CELL VOLUME 91.5 fl (80.0-94.0); MEAN CORPUSCULAR HGB 30.8 pg (27.0-31.0); MEAN CORPUSCULAR HGB CONC 33.7 g/dl (33.0-37.0); MEAN PLATELET VOLUME 10.9 fl (9.6-12.3); PLATELET COUNT AUTOMATED 57 10*3/uL (130-400); RED BLOOD COUNT 3.05 10*6/uL (4.50-5.90); RED CELL DISTRI WIDTH 16.6 % (0-14.5); WHITE BLOOD COUNT 2.3 10*3/uL (4.8-10.8)
[2016-08-26 07:38] LABS: CHLORIDE 115 mmol/L (98-107); POTASSIUM 3.5 mmol/L (3.5-5.1); SODIUM 148 mmol/L (136-145)
[2016-08-26 07:51] LABS: BUN 14 mg/dl (7-24); CARBON DIOXIDE 22 mmol/L (21-32); EST GLOM FILT AFRICAN AMERICAN > 60 ml/min; GLUCOSE 89 mg/dL (65-99)
[2016-08-26 08:10] LABS: ATYPICAL LYMPHS 1 % (0-0); EOSINOPHIL # 0.3 10*3/uL (0-0.4); EOSINOPHILS 11 % (1-4); LYMPHOCYTE # 0.4 10*3/uL (1.3-4.4); MONOCYTE # 0.6 10*3/uL (0.1-1.0); MYELOCYTES 1 % (0-0); NEUTROPHILS 43 % (47-73); PLATELET SUFFICIENCY LOW (NORMAL); SCHISTOCYTES FEW; TEAR DROP CELLS MODERATE; TOTAL CELLS COUNTED 100 #CELLS
== END 2016-08-26 16:32 | disposition home or self-care (01) | DRG 180 ==
LOC: ED 21:27 → 5E 22:42 → EDHOLD 22:42 → 5E 23:14
PROVIDERS: Internal Medicine; Internal Medicine Hematology & Oncology; Student in an Organized Health Care Education/Training Program
PROC: 30233N1 Transfusion of Nonautologous Red Blood Cells into Peripheral Vein, Percutaneous Approach (ICD-10-PCS; principal; 2016-08-21)
PROC: 30233R1 Transfusion of Nonautologous Platelets into Peripheral Vein, Percutaneous Approach (ICD-10-PCS; 2016-08-21)
DX: C34.11 Malignant neoplasm of upper lobe, right bronchus or lung (principal); D61.810 Antineoplastic chemotherapy induced pancytopenia; D69.59 Other secondary thrombocytopenia; J44.9 Chronic obstructive pulmonary disease, unspecified; E44.1 Mild protein-calorie malnutrition; G62.9 Polyneuropathy, unspecified; F17.210 Nicotine dependence, cigarettes, uncomplicated; G40.909 Epilepsy, unspecified, not intractable, without status epilepticus; E78.5 Hyperlipidemia, unspecified; T45.1X5A Adverse effect of antineoplastic and immunosuppressive drugs, initial encounter; Z51.5 Encounter for palliative care; M81.0 Age-related osteoporosis without current pathological fracture; K21.9 Gastro-esophageal reflux disease without esophagitis; D63.0 Anemia in neoplastic disease; Z79.82 Long term (current) use of aspirin; Z79.899 Other long term (current) drug therapy; Z90.49 Acquired absence of other specified parts of digestive tract; Z68.20 Body mass index [BMI] 20.0-20.9, adult; Y92.89 Other specified places as the place of occurrence of the external cause; Z86.73 Personal history of transient ischemic attack (TIA), and cerebral infarction without residual deficits

== ENCOUNTER → 2016-08-29 | Outpatient (CLI) | payer MEDICARE, MEDICAID ==
[~2016-08-29] MED LIST changes: +LEVETIRACETAM500 MG PO; +Meclizine25 MG PO
[2016-08-29 11:10] LABS: HEMATOCRIT 29.5 % (42.0-52.0); HEMOGLOBIN 9.7 g/dl (14.0-18.0); MEAN CELL VOLUME 92.8 fl (80.0-94.0); MEAN CORPUSCULAR HGB 30.5 pg (27.0-31.0); MEAN CORPUSCULAR HGB CONC 32.9 g/dl (33.0-37.0); MEAN PLATELET VOLUME 10.6 fl (9.6-12.3); PLATELET COUNT AUTOMATED 59 10*3/uL (130-400); RED BLOOD COUNT 3.18 10*6/uL (4.50-5.90); RED CELL DISTRI WIDTH 17.1 % (0-14.5)
[2016-08-29 12:14] LABS: EOSINOPHIL # 0.2 10*3/uL (0-0.4); EOSINOPHILS 5 % (1-4); LYMPHOCYTE # 0.9 10*3/uL (1.3-4.4); MONOCYTE # 0.3 10*3/uL (0.1-1.0); NEUTROPHIL # 1.7 10*3/uL (2.3-7.9); NEUTROPHILS 55 % (47-73); PLATELET SUFFICIENCY LOW (NORMAL); TOTAL CELLS COUNTED 100 #CELLS
[2016-08-29 12:15] LABS: POLYCHROMASIA SLIGHT; TEAR DROP CELLS FEW
== END | disposition home or self-care (01) ==
LOC: LAB 10:47
PROVIDERS: Student in an Organized Health Care Education/Training Program
DX: D69.6 Thrombocytopenia, unspecified (principal)

== ENCOUNTER 2016-09-05 00:25 | Emergency (ER) | payer MEDICARE, MEDICAID ==
[~2016-09-05] VITALS: Ht 185.4 cm; Wt 68.0 kg
[2016-09-05 00:29] VITALS: BP 150/76
[2016-09-05 00:53] LABS: HEMATOCRIT 29.6 % (42.0-52.0); HEMOGLOBIN 9.6 g/dl (14.0-18.0); MEAN CELL VOLUME 94.3 fl (80.0-94.0); MEAN CORPUSCULAR HGB 30.6 pg (27.0-31.0); MEAN CORPUSCULAR HGB CONC 32.4 g/dl (33.0-37.0); MEAN PLATELET VOLUME 10.6 fl (9.6-12.3); PLATELET COUNT AUTOMATED 91 10*3/uL (130-400); RED BLOOD COUNT 3.14 10*6/uL (4.50-5.90); RED CELL DISTRI WIDTH 16.7 % (0-14.5); WHITE BLOOD COUNT 3.1 10*3/uL (4.8-10.8)
[2016-09-05 01:01] LABS: PROTHROMBIN TIME 10.9 SECONDS (9.0-12.4)
[2016-09-05 01:04] LABS: BUN 28 mg/dl (7-24); CARBON DIOXIDE 26 mmol/L (21-32); CHLORIDE 112 mmol/L (98-107); EST GLOM FILT AFRICAN AMERICAN > 60 ml/min; GLUCOSE 80 mg/dL (65-99); POTASSIUM 4.5 mmol/L (3.5-5.1); SODIUM 147 mmol/L (136-145)
[2016-09-05 01:09] LABS: BILIRUBIN NEGATIVE (NEGATIVE); BLOOD 3+ (NEGATIVE); CLARITY SL CLOUDY (CLEAR); COLOR YELLOW (YELLOW); GLUCOSE NEGATIVE (NEGATIVE); KETONE NEGATIVE (NEGATIVE); LEUKO ESTERASE NEGATIVE (NEGATIVE); NITRITE NEGATIVE (NEGATIVE); PH 7.5 (5.0-9.0); PROTEIN NEGATIVE (NEGATIVE); UROBILINOGEN 0.2 E.U./dl (0.2-1.0)
[2016-09-05 01:12] LABS: ATYPICAL LYMPHS 1 % (0-0); BASOPHILS 1 % (0-1); LYMPHOCYTE # 0.7 10*3/uL (1.3-4.4); NEUTROPHIL # 2.3 10*3/uL (2.3-7.9); NEUTROPHILS 74 % (47-73); PLATELET SUFFICIENCY LOW (NORMAL); TOTAL CELLS COUNTED 100 #CELLS
[2016-09-05 01:17] LABS: RBC 31-40 rbc/hpf (0-2)
[2016-09-05 01:18] LABS: URINE REFLEX COMMENT YES (NO)
== END 2016-09-05 04:01 | disposition home or self-care (01) ==
LOC: ED 00:25
PROVIDERS: Emergency Medicine
DX: R31.9 Hematuria, unspecified (principal); K21.9 Gastro-esophageal reflux disease without esophagitis; J44.9 Chronic obstructive pulmonary disease, unspecified; G43.909 Migraine, unspecified, not intractable, without status migrainosus; M81.0 Age-related osteoporosis without current pathological fracture; Z90.49 Acquired absence of other specified parts of digestive tract; Z86.73 Personal history of transient ischemic attack (TIA), and cerebral infarction without residual deficits; Z98.890 Other specified postprocedural states; Z85.118 Personal history of other malignant neoplasm of bronchus and lung; Z79.899 Other long term (current) drug therapy

== ENCOUNTER 2016-09-08 16:45 | Inpatient (IN) | payer MEDICAID ==
[~2016-09-08] VITALS: Ht 187.9 cm; Wt 77.6 kg
--- NOTE | ~2016-09-08 | PR ---
[place], [place] PROGRESS NOTE NAME: SUKHDEV MCDERMOTT [facility] #: [id number] UNIT #: [id number] ROOM: 412 DOCTOR: AFSANEH PHILLIPS MD BIRTHDATE: [birth year] DOS: 09/13/2016 SUBJECTIVE: The patient is doing much better. He is alert, oriented. Appetite is pretty good. REVIEW OF SYSTEMS: HEENT: No trouble swallowing. No double vision. No loss of vision. No pain. ENT AND RESPIRATORY: No wheeze. No change in voice. No cough. No shortness of breath. No coughing up blood. No epistaxis. CARDIOLOGIC: No chest pain. No dizziness. No irregular heartbeat. No leg edema. No palpitations. No shortness of breath. HEMATOLOGIC AND LYMPH: No past transfusion. No fatigue. No loss of appetite. No easy bruising. GASTROENTEROLOGIC: No change in bowel habits. No vomiting blood. No abdominal cramping. No nausea. No vomiting. No diarrhea. No constipation. No blood in stool. MALE REPRODUCTIVE: No testicular pain. No penile discharge. MUSCULOSKELETAL: No back pain. No muscle pain or weakness. No tingling/numbness. UROLOGIC: No pain with urination. No difficulty urinating. No frequent urination. NEUROLOGIC: No burning pain in feet. No trouble with coordination. No loss of consciousness. No headache. No tingling/numbness. No memory loss. PHYSICAL EXAMINATION: GENERAL: Pleasant gentleman, in no apparent distress. VITAL SIGNS: Stable, afebrile. HEENT: Normocephalic, atraumatic. NECK AND THYROID: Supple. No JVD, thyromegaly, or lymphadenopathy. HEART: Normal S1, S2. Regular rate and rhythm. LUNGS: Clear to auscultation and percussion. ABDOMEN: Soft. Nontender, nondistended. Bowel sounds present. EXTREMITIES: Normal ROM. No clubbing. No edema. LABORATORY DATA: White count was 2.6, hemoglobin 9.9, hematocrit 28.9, platelet count of 17,000. ASSESSMENT: 1. Pancytopenia secondary to chemotherapy. 2. History of metastatic lung cancer. 3. Hypertension. 4. Chronic obstructive pulmonary disease. 5. Gastroesophageal reflux disease. PLAN: He will be getting 6 units of platelets because of the dropping platelet count. In addition, his hemoglobin and hematocrit and white count are stable. We will keep a close watch at this time. If he starts any fever, chills, or any drop in the counts, then further intervention. Available records were reviewed. Had detailed discussion with the patient about it, seemed to understand it. Ample time was given to the patient to ask me questions. [place], [place] PROGRESS NOTE NAME: SUKHDEV MCDERMOTT UNIT #: [id number] ROOM: 412 DOCTOR: AFSANEH PHILLIPS MD BIRTHDATE: [birth year] AFSANEH PHILLIPS MD CM:NATASHA 3 3 AFSANEH PHILLIPS MD 09/13/16913 interface
--- NOTE | ~2016-09-08 | CON ---
[place], [place] REPORT OF CONSULTATION NAME: SUKHDEV MCDERMOTT [facility] #: [id number] UNIT #: [id number] ROOM: 412 DOCTOR: AFSANEH PHILLIPS MD BIRTHDATE: [birth year] DOS: 09/09/2016 HISTORY OF PRESENT ILLNESS: The patient is a pleasant 71-year-old gentleman with a history of metastatic lung cancer, undergoing treatment. As per the records and patient's brother in law, on the day of admission, he took his medication all at the same time instead of spacing it out throughout the course of the day. During the day, he was noticed to have syncopal episode in the bathroom. Subsequently, he also vomited prior to passing out and subsequently admitted. On routine CBC exam, was found to be thrombocytopenic and anemic and consulted for further evaluation and management. PAST MEDICAL HISTORY: Significant for metastatic lung cancer for which he has been undergoing treatment, history of COPD, GERD, history of epilepsy, history of stroke, hyperglycemia, hyperlipidemia, hyponatremia, osteoporosis, pneumonitis . MEDICATIONS: Lipitor, levetiracetam, tamsulosin, mag oxide, Prevacid, calcium carbonate, aspirin, vitamin D, Fosamax, tramadol, gabapentin. ALLERGIES: No known allergies. PAST SURGICAL HISTORY: Right knee surgery, history of cholecystectomy. SOCIAL HISTORY: He smokes a pack and had been smoking 2 packs per day for a long time. Denies any drug or alcohol use. FAMILY HISTORY: Father , age unknown. Mother at age 60. REVIEW OF SYSTEMS CONSTITUTIONAL: No chills. No fatigue. No fever. No loss of appetite. No night sweats. No weakness. No weight loss. HEENT: No trouble swallowing. No loss of smell. No loss of hearing. No double vision. No pain. No discharge. ENT AND RESPIRATORY: No wheeze. No sore throat. No change in voice. No hearing loss. No nose bleed. No cough. No trouble breathing through nose. No shortness of breath. No coughing up blood. No epistaxis. CARDIOVASCULAR: No chest pain. No dizziness. No irregular heartbeat. No leg edema. No pain in legs while walking. No palpitations. No shortness of breath. DERMATOLOGIC: No acne. No hives. No laceration. No mole. No rash. ENDOCRINE: No cold intolerance. No diabetes. No fatigue. No hot flashes. No polydipsia. No polyuria. No urinating frequently. No weight loss. HEMATOLOGIC AND LYMPH: No fatigue. No easy bruising. GASTROENTEROLOGIC: No change in bowel habits. No indigestion. No frequent bloating. No vomiting blood. No abdominal cramping. No nausea. No heartburn. No vomiting. No abdominal pain. No dysphagia. No diarrhea. No constipation. No blood in stool. MALE REPRODUCTIVE: No testicular pain. No difficulty with erection. No diminished sexual drive. No penile discharge. MUSCULOSKELETAL: No back pain. No muscle pain or weakness. No neck pain. No [place], [place] REPORT OF CONSULTATION NAME: SUKHDEV MCDERMOTT UNIT #: [id number] ROOM: [facility] DOCTOR: AFSANEH PHILLIPS MD BIRTHDATE: [birth year] tingling/numbness. No swelling/bruising. No osteoporosis treatment. OPTHALMOLOGIC: No double vision. No diminished vision. No loss of vision. UROLOGIC: No dysuria. No frequent nighttime urination. No pain with urination. No difficulty urinating. No blood in urine. No frequent urination. No urinary incontinence. NEUROLOGIC: No loss of sensation in specific body area. No vertigo. No burning pain in feet. No trouble with balance. No trouble with coordination. No loss of consciousness. No loss of feeling/power. No confusion. No headache. No tingling/numbness. PSYCHOLOGIC: No tinnitus. No headaches. No shortness of breath. No weight decrease. No nausea. No vomiting. No abdominal discomfort. No constipation. No diarrhea. No depression. No anxiety. PHYSICAL EXAMINATION: GENERAL: Pleasant gentleman in no apparent distress. VITAL SIGNS: Stable. Afebrile. HEENT: Oral mucosa appears intact. The external ears are normal in appearance. Nares are patent without lesions, exudates, erythema, or inflammation. Tongue is symmetrical. Uvula is midline. Had an episode of syncope. NECK AND THYROID: Neck supple without palpable masses. Trachea is midline. No thyromegaly. No carotid bruit or JVD. BREASTS: Normal. Nipples unremarkable. No drainage. No lumps felt on either side. HEART: Normal S1, S2, without significant murmur, rub, or gallop. LUNGS: Clear to auscultation and percussion with good air entry bilaterally. The patient is breathing easily without the use of accessory muscles. Diaphragmatic excursions are intact. ABDOMEN: No costovertebral angle tenderness. Soft. No organomegaly or masses. Nontender. No hernias present. Liver and spleen are not palpable. LYMPHATIC: No adenopathy noted in the cervical, supraclavicular, axillary, or inguinal regions. NEUROLGIC: Nonfocal. Oriented to person, place, and time. MENTAL STATUS: Appropriate for mood and affect. PERIPHERAL PULSES: No varicosities. Femoral and pedal pulses are palpable. EXTREMITIES: Without cyanosis, clubbing, or edema. No gross anomalies. LABORATORY DATA: White count of 5.9, hemoglobin of 8.3, hematocrit 25.8, platelet count 22,000. Glucose of 89, EGFR is 46. Sodium 145, potassium 4.1, chloride 113, bicarbonate 22, calcium 8.0, total protein 6.3, albumin 2.7, SGOT 36, SGPT 38, alkaline phosphatase 102. ASSESSMENT: 1. History of syncope. 2. Progressive thrombocytopenia secondary to chemotherapy. 3. Anemia of neoplastic disorder. 4. Hematuria, which has got better today. PLAN: The patient will be getting a unit of blood. In addition, will be getting urinalysis today. If he continues to have blood in the urine, we will give him platelets at that time. Otherwise, close followup. I had a detailed [place], [place] REPORT OF CONSULTATION NAME: SUKHDEV MCDERMOTT UNIT #: [id number] ROOM: 412 DOCTOR: AFSANEH PHILLIPS MD BIRTHDATE: [birth year] discussion with the patient about it, seemed to understand. Ample time was given to the patient to ask me questions. Thanks for consulting and letting me participate in the care of this interesting patient. AFSANEH PHILLIPS MD CM:CONSTR:REPORT OF CONSULTATION 0822 09/09/16 1051 interface
--- NOTE | ~2016-09-08 | PR ---
[place], [place] PROGRESS NOTE NAME: SUKHDEV MCDERMOTT [facility] #: [id number] UNIT #: [id number] ROOM: 412 DOCTOR: AFSANEH PHILLIPS MD BIRTHDATE: [birth year] DOS: 09/14/2016 SUBJECTIVE: Continues to be alert, awake and responsive. REVIEW OF SYSTEMS HEENT: No trouble swallowing. No double vision. No loss of vision. No pain. ENT AND RESPIRATORY: No wheeze. No change in voice. No cough. No shortness of breath. No coughing up blood. No epistaxis. CARDIOLOGIC: No chest pain. No dizziness. No irregular heartbeat. No leg edema. No palpitations. No shortness of breath. HEMATOLOGIC AND LYMPH: No past transfusion. No fatigue. No loss of appetite. No easy bruising. GASTROENEROLOGIC: No change in bowel habits. No vomiting blood. No abdominal cramping. No nausea. No vomiting. No diarrhea. No constipation. No blood in stool. MALE REPRODUCTIVE: No testicular pain. No penile discharge. MUSCULOSKELETAL: No back pain. No muscle pain or weakness. No tingling/numbness. UROLOGIC: No pain with urination. No difficulty urinating. No frequent urination. NEUROLOGIC: No burning pain in feet. No trouble with coordination. No loss of consciousness. No headache. No tingling/numbness. No memory loss. PHYSICAL EXAMINATION: GENERAL: Pleasant gentleman, in no apparent distress. VITAL SIGNS: Blood pressure 106/74, respirations 20, pulse 70, temperature 98.1. HEENT: Normocephalic, atraumatic. NECK AND THYROID: Supple. No JVD, thyromegaly, or lymphadenopathy. HEART: Normal S1, S2. Regular rate and rhythm. LUNGS: Clear to auscultation and percussion. ABDOMEN: Soft. Nontender, nondistended. Bowel sounds present. EXTREMITIES: Normal ROM. No clubbing. No edema. LABORATORY DATA: White count 2.8, hemoglobin 8.9, hematocrit 26.4, platelet count of 75,000 with ANC of 1700. ASSESSMENT: 1. Lung cancer, stage 4. 2. Anemia of neoplastic disorder. 3. Neutropenia with a normal ANC. 4. Thrombocytopenia, which is getting better. PLAN: Overall, he is doing much better. He is ambulating. He is eating good. We will send him home today if it is okay with Dr. Alvarez and the resident. In the meantime, we will repeat his blood counts on Tuesday. Depending on that, further intervention. He was advised if any fever, chills, any weakness, tiredness, to call us right away. Ample time was given to the patient to ask me questions. [place], [place] PROGRESS NOTE NAME: SUKHDEV MCDERMOTT UNIT #: [id number] ROOM: [facility] DOCTOR: AFSANEH PHILLIPS MD BIRTHDATE: [birth year] ADDENDUM: I talked to the resident. The patient will be going home today and he will follow up with me as an outpatient. I have also discussed with the family. AFSANEH PHILLIPS MD CM:PNYRIS [phone] AFSANEH PHILLIPS MD 09/15/16 0126 interface
[2016-09-08 17:10] VITALS: BP 107/40
[2016-09-08] MEDS ORDERED: MGO400 MG PO (17:20)
[2016-09-08] MEDS ORDERED: PREVACID30 M2 PO (17:25)
[2016-09-08 17:36] LABS: HEMATOCRIT 25.7 % (42.0-52.0); HEMOGLOBIN 8.3 g/dl (14.0-18.0); MEAN CELL VOLUME 94.8 fl (80.0-94.0); MEAN CORPUSCULAR HGB 30.6 pg (27.0-31.0); MEAN CORPUSCULAR HGB CONC 32.3 g/dl (33.0-37.0); MEAN PLATELET VOLUME 11.6 fl (9.6-12.3); PLATELET COUNT AUTOMATED 30 10*3/uL (130-400); RED BLOOD COUNT 2.71 10*6/uL (4.50-5.90); RED CELL DISTRI WIDTH 16.7 % (0-14.5); WHITE BLOOD COUNT 8.3 10*3/uL (4.8-10.8)
[2016-09-08 17:55] LABS: ALKALINE PHOSPHATASE 105 U/L (45-117); BUN 45 mg/dl (7-24); CARBON DIOXIDE 23 mmol/L (21-32); CHLORIDE 111 mmol/L (98-107); EST GLOM FILT AFRICAN AMERICAN 33 ml/min; GLUCOSE 118 mg/dL (65-99); LYMPHOCYTE # 0.3 10*3/uL (1.3-4.4); MONOCYTE # 0.1 10*3/uL (0.1-1.0); NEUTROPHIL # 7.9 10*3/uL (2.3-7.9); NEUTROPHILS 95 % (47-73); POTASSIUM 4.6 mmol/L (3.5-5.1); SGOT/AST 40 IU/L (3-35); SGPT/ALT 44 U/L (12-78); SODIUM 146 mmol/L (136-145); TOTAL CELLS COUNTED 100 #CELLS; TOTAL PROTEIN 6.9 gm/dL (6.4-8.2)
[2016-09-08 17:56] LABS: PLATELET SUFFICIENCY LOW (NORMAL); TEAR DROP CELLS FEW
[2016-09-08 17:58] LABS: TROPONIN I < 0.015 ng/ml (<0.045)
[2016-09-08 18:50] VITALS: BP 119/54
[2016-09-08 20:00] VITALS: BP 91/42
[2016-09-09] VITALS (8 sets, daily range): BP systolic 108–154; BP diastolic 47–75
[2016-09-09 03:05] LABS: BILIRUBIN NEGATIVE (NEGATIVE); BLOOD TRACE-INTACT (NEGATIVE); CLARITY CLOUDY (CLEAR); COLOR YELLOW (YELLOW); GLUCOSE NEGATIVE (NEGATIVE); KETONE NEGATIVE (NEGATIVE); LEUKO ESTERASE 2+ (NEGATIVE); NITRITE NEGATIVE (NEGATIVE); PH 5.5 (5.0-9.0); PROTEIN TRACE (NEGATIVE); UROBILINOGEN 0.2 E.U./dl (0.2-1.0)
[2016-09-09 03:22] LABS: BACTERIA 4+; URINE REFLEX COMMENT YES (NO); WBC TNTC wbc/hpf (0-5)
[2016-09-09 06:55] LABS: HEMATOCRIT 25.8 % (42.0-52.0); HEMOGLOBIN 8.3 g/dl (14.0-18.0); MEAN CELL VOLUME 95.9 fl (80.0-94.0); MEAN CORPUSCULAR HGB 30.9 pg (27.0-31.0); MEAN CORPUSCULAR HGB CONC 32.2 g/dl (33.0-37.0); MEAN PLATELET VOLUME 12.2 fl (9.6-12.3); RED BLOOD COUNT 2.69 10*6/uL (4.50-5.90); RED CELL DISTRI WIDTH 17.1 % (0-14.5); WHITE BLOOD COUNT 5.9 10*3/uL (4.8-10.8)
[2016-09-09 07:03] LABS: POTASSIUM 4.1 mmol/L (3.5-5.1)
[2016-09-09 07:15] LABS: ALBUMIN 2.7 gm/dl (3.1-4.5); BILIRUBIN, TOTAL 0.6 mg/dl (0.2-1.0); TOTAL PROTEIN 6.3 gm/dL (6.4-8.2)
[2016-09-09 07:21] LABS: LYMPHOCYTE # 0.5 10*3/uL (1.3-4.4); NEUTROPHIL # 5.4 10*3/uL (2.3-7.9); NEUTROPHILS 91 % (47-73); OVALOCYTES FEW; PLATELET SUFFICIENCY LOW (NORMAL); TEAR DROP CELLS FEW; TOTAL CELLS COUNTED 100 #CELLS
[2016-09-09 07:23] LABS: PLATELET COUNT AUTOMATED 22 10*3/uL (130-400)
[2016-09-10] VITALS (14 sets, daily range): BP systolic 120–165; BP diastolic 50–90
[2016-09-10 02:03] LABS: BILIRUBIN NEGATIVE (NEGATIVE); BLOOD 1+ (NEGATIVE); CLARITY CLEAR (CLEAR); COLOR YELLOW (YELLOW); GLUCOSE NEGATIVE (NEGATIVE); KETONE NEGATIVE (NEGATIVE); LEUKO ESTERASE 1+ (NEGATIVE); NITRITE NEGATIVE (NEGATIVE); PROTEIN 1+ (NEGATIVE); SPECIFIC GRAVITY 1.015 (1.005-1.030); UROBILINOGEN 0.2 E.U./dl (0.2-1.0)
[2016-09-10 02:12] LABS: BACTERIA 1+; EPITHELIAL CELLS 0-2; WBC 51-100 wbc/hpf (0-5)
[2016-09-10 06:57] LABS: HEMATOCRIT 24.5 % (42.0-52.0); HEMOGLOBIN 8.1 g/dl (14.0-18.0); MEAN CELL VOLUME 92.5 fl (80.0-94.0); MEAN CORPUSCULAR HGB 30.6 pg (27.0-31.0); MEAN CORPUSCULAR HGB CONC 33.1 g/dl (33.0-37.0); RED BLOOD COUNT 2.65 10*6/uL (4.50-5.90); RED CELL DISTRI WIDTH 17.1 % (0-14.5); WHITE BLOOD COUNT 3.3 10*3/uL (4.8-10.8)
[2016-09-10 07:18] LABS: LYMPHOCYTE # 0.3 10*3/uL (1.3-4.4); NEUTROPHIL # 2.9 10*3/uL (2.3-7.9); NEUTROPHILS 89 % (47-73); PLATELET SUFFICIENCY LOW (NORMAL); SCHISTOCYTES FEW; TOTAL CELLS COUNTED 100 #CELLS
[2016-09-10 07:20] LABS: PLATELET COUNT AUTOMATED 15 10*3/uL (130-400)
[2016-09-10 07:23] LABS: CHLORIDE 119 mmol/L (98-107); POTASSIUM 4.1 mmol/L (3.5-5.1); SODIUM 147 mmol/L (136-145)
[2016-09-10 07:34] LABS: BUN 34 mg/dl (7-24); CARBON DIOXIDE 20 mmol/L (21-32); EST GLOM FILT AFRICAN AMERICAN > 60 ml/min; GLUCOSE 85 mg/dL (65-99)
[2016-09-11] VITALS: BP 154/69
[2016-09-11 06:23] LABS: HEMATOCRIT 27.7 % (42.0-52.0); HEMOGLOBIN 9.1 g/dl (14.0-18.0); MEAN CELL VOLUME 90.2 fl (80.0-94.0); MEAN CORPUSCULAR HGB 29.6 pg (27.0-31.0); MEAN CORPUSCULAR HGB CONC 32.9 g/dl (33.0-37.0); MEAN PLATELET VOLUME 10.3 fl (9.6-12.3); RED BLOOD COUNT 3.07 10*6/uL (4.50-5.90); RED CELL DISTRI WIDTH 17.1 % (0-14.5); WHITE BLOOD COUNT 3.1 10*3/uL (4.8-10.8)
[2016-09-11 07:02] LABS: LYMPHOCYTE # 0.6 10*3/uL (1.3-4.4); NEUTROPHIL # 2.5 10*3/uL (2.3-7.9); NEUTROPHILS 80 % (47-73); PLATELET SUFFICIENCY LOW (NORMAL); SCHISTOCYTES FEW; TOTAL CELLS COUNTED 100 #CELLS
[2016-09-11 07:04] LABS: PLATELET COUNT AUTOMATED 27 10*3/uL (130-400)
[2016-09-11 07:51] VITALS: BP 158/78
[2016-09-11 12:00] VITALS: BP 169/73
[2016-09-11 16:00] VITALS: BP 156/77
[2016-09-11 20:00] VITALS: BP 165/73
[2016-09-12] VITALS: BP 141/61
[2016-09-12 06:07] LABS: HEMATOCRIT 27.1 % (42.0-52.0); MEAN CELL VOLUME 89.4 fl (80.0-94.0); MEAN CORPUSCULAR HGB 29.7 pg (27.0-31.0); MEAN CORPUSCULAR HGB CONC 33.2 g/dl (33.0-37.0); MEAN PLATELET VOLUME 10.8 fl (9.6-12.3); RED BLOOD COUNT 3.03 10*6/uL (4.50-5.90); RED CELL DISTRI WIDTH 16.3 % (0-14.5); WHITE BLOOD COUNT 3.3 10*3/uL (4.8-10.8)
[2016-09-12 06:39] LABS: BURR CELLS FEW; LYMPHOCYTE # 0.6 10*3/uL (1.3-4.4); NEUTROPHIL # 2.7 10*3/uL (2.3-7.9); NEUTROPHILS 82 % (47-73); PLATELET SUFFICIENCY LOW (NORMAL); ROULEAUX MODERATE; TOTAL CELLS COUNTED 100 #CELLS
[2016-09-12 06:41] LABS: PLATELET COUNT AUTOMATED 23 10*3/uL (130-400)
[2016-09-12 08:00] VITALS: BP 160/82
[2016-09-12 12:00] VITALS: BP 162/73
[2016-09-12 16:00] VITALS: BP 153/65
[2016-09-12 20:00] VITALS: BP 143/68
[2016-09-13] VITALS (12 sets, daily range): BP systolic 110–169; BP diastolic 57–80
[2016-09-13 06:36] LABS: HEMATOCRIT 28.9 % (42.0-52.0); HEMOGLOBIN 9.9 g/dl (14.0-18.0); MEAN CELL VOLUME 88.9 fl (80.0-94.0); MEAN CORPUSCULAR HGB 30.5 pg (27.0-31.0); MEAN CORPUSCULAR HGB CONC 34.3 g/dl (33.0-37.0); MEAN PLATELET VOLUME 12.8 fl (9.6-12.3); RED BLOOD COUNT 3.25 10*6/uL (4.50-5.90); RED CELL DISTRI WIDTH 15.9 % (0-14.5); WHITE BLOOD COUNT 2.6 10*3/uL (4.8-10.8)
[2016-09-13 06:58] LABS: LYMPHOCYTE # 0.4 10*3/uL (1.3-4.4); MONOCYTE # 0.2 10*3/uL (0.1-1.0); NEUTROPHILS 77 % (47-73); PLATELET SUFFICIENCY LOW (NORMAL); SCHISTOCYTES FEW; TEAR DROP CELLS FEW; TOTAL CELLS COUNTED 100 #CELLS
[2016-09-13 07:06] LABS: PLATELET COUNT AUTOMATED 17 10*3/uL (130-400)
[2016-09-14] VITALS: BP 119/47
[2016-09-14 06:41] LABS: HEMATOCRIT 26.4 % (42.0-52.0); HEMOGLOBIN 8.9 g/dl (14.0-18.0); MEAN CELL VOLUME 89.2 fl (80.0-94.0); MEAN CORPUSCULAR HGB 30.1 pg (27.0-31.0); MEAN CORPUSCULAR HGB CONC 33.7 g/dl (33.0-37.0); MEAN PLATELET VOLUME 10.5 fl (9.6-12.3); RED BLOOD COUNT 2.96 10*6/uL (4.50-5.90); RED CELL DISTRI WIDTH 15.8 % (0-14.5); WHITE BLOOD COUNT 2.8 10*3/uL (4.8-10.8)
[2016-09-14 06:45] LABS: PLATELET COUNT AUTOMATED 75 10*3/uL (130-400)
[2016-09-14 07:03] LABS: LYMPHOCYTE # 0.8 10*3/uL (1.3-4.4); MONOCYTE # 0.3 10*3/uL (0.1-1.0); NEUTROPHIL # 1.7 10*3/uL (2.3-7.9); NEUTROPHILS 61 % (47-73); PLATELET SUFFICIENCY LOW (NORMAL); TOTAL CELLS COUNTED 100 #CELLS
[2016-09-14 08:00] VITALS: BP 116/74
[2016-09-14 12:00] VITALS: BP 120/55
[2016-09-14] MEDS ORDERED: LISINOPRIL10 M1 PO (14:07)
[2016-09-14] MEDS ORDERED: BACTRIM DS 8001 TA1 PO (14:12)
[2016-09-14 15:09] LABS: BILIRUBIN NEGATIVE (NEGATIVE); BLOOD TRACE-INTACT (NEGATIVE); CLARITY CLEAR (CLEAR); COLOR YELLOW (YELLOW); GLUCOSE NEGATIVE (NEGATIVE); KETONE NEGATIVE (NEGATIVE); LEUKO ESTERASE 1+ (NEGATIVE); NITRITE NEGATIVE (NEGATIVE); PH 5.5 (5.0-9.0); PROTEIN NEGATIVE (NEGATIVE); UROBILINOGEN 0.2 E.U./dl (0.2-1.0)
[2016-09-14 15:18] LABS: BACTERIA 1+; EPITHELIAL CELLS 0-2; URINE REFLEX COMMENT YES (NO)
== END 2016-09-14 14:59 | disposition home or self-care (01) | DRG 808 ==
LOC: ED 16:45 → 4E 17:58 → EDHOLD 17:58 → 4E 18:16
PROVIDERS: Family Medicine Adult Medicine; Internal Medicine; Internal Medicine Hematology & Oncology; Student in an Organized Health Care Education/Training Program
PROC: 30233N1 Transfusion of Nonautologous Red Blood Cells into Peripheral Vein, Percutaneous Approach (ICD-10-PCS; principal; 2016-09-09)
PROC: 30233R1 Transfusion of Nonautologous Platelets into Peripheral Vein, Percutaneous Approach (ICD-10-PCS; 2016-09-09)
DX: D61.810 Antineoplastic chemotherapy induced pancytopenia (principal); N17.0 Acute kidney failure with tubular necrosis; E44.0 Moderate protein-calorie malnutrition; E87.0 Hyperosmolality and hypernatremia; C34.91 Malignant neoplasm of unspecified part of right bronchus or lung; J44.9 Chronic obstructive pulmonary disease, unspecified; N39.0 Urinary tract infection, site not specified; D53.9 Nutritional anemia, unspecified; I10 Essential (primary) hypertension; E83.41 Hypermagnesemia; G62.9 Polyneuropathy, unspecified; C80.1 Malignant (primary) neoplasm, unspecified; T45.1X5A Adverse effect of antineoplastic and immunosuppressive drugs, initial encounter; F17.210 Nicotine dependence, cigarettes, uncomplicated; M81.0 Age-related osteoporosis without current pathological fracture; K21.9 Gastro-esophageal reflux disease without esophagitis; E78.5 Hyperlipidemia, unspecified; D63.0 Anemia in neoplastic disease; D50.9 Iron deficiency anemia, unspecified; W18.30XA Fall on same level, unspecified, initial encounter; Y93.89 Activity, other specified; Y92.091 Bathroom in other non-institutional residence as the place of occurrence of the external cause; Y99.8 Other external cause status; Z68.20 Body mass index [BMI] 20.0-20.9, adult; Z90.49 Acquired absence of other specified parts of digestive tract; Z79.82 Long term (current) use of aspirin; Z79.899 Other long term (current) drug therapy; Z86.73 Personal history of transient ischemic attack (TIA), and cerebral infarction without residual deficits

== ENCOUNTER → 2016-09-19 | Outpatient (CLI) | payer MEDICARE, MEDICAID ==
[~2016-09-19] MED LIST changes: +BACTRIM DS 8001 TA1 PO; +LISINOPRIL10 M1 PO; +MGO400 MG PO; +PREVACID30 M2 PO
[2016-09-19 10:36] LABS: EOS # 0.1 10*3/uL (0.0-0.4); EOS % 2.5 % (1.0-4.0); HEMATOCRIT 27.7 % (42.0-52.0); HEMOGLOBIN 8.8 g/dl (14.0-18.0); LYMPH # 0.7 10*3/uL (1.3-4.4); LYMPH % 23.4 % (27.0-41.0); MEAN CELL VOLUME 96.2 fl (80.0-94.0); MEAN CORPUSCULAR HGB 30.6 pg (27.0-31.0); MEAN CORPUSCULAR HGB CONC 31.8 g/dl (33.0-37.0); MEAN PLATELET VOLUME 10.5 fl (9.6-12.3); MONO # 0.4 10*3/uL (0.1-1.0); MONO % 13.5 % (3.0-9.0); NEUT # 1.7 10*3/uL (2.3-7.9); NEUT % 59.9 % (47.0-73.0); PLATELET COUNT AUTOMATED 52 10*3/uL (130-400); RED BLOOD COUNT 2.88 10*6/uL (4.50-5.90); RED CELL DISTRI WIDTH 16.5 % (0-14.5); WHITE BLOOD COUNT 2.8 10*3/uL (4.8-10.8)
[2016-09-19 11:16] LABS: ALBUMIN 3.2 gm/dl (3.1-4.5); BILIRUBIN, TOTAL 0.2 mg/dl (0.2-1.0); POTASSIUM 4.9 mmol/L (3.5-5.1); TOTAL PROTEIN 6.9 gm/dL (6.4-8.2)
== END | disposition home or self-care (01) ==
LOC: LAB 10:20
PROVIDERS: Internal Medicine Hematology & Oncology
DX: C34.90 Malignant neoplasm of unspecified part of unspecified bronchus or lung (principal)

== ENCOUNTER → 2016-09-26 | Outpatient (CLI) | payer MEDICARE, MEDICAID ==
[2016-09-26 10:39] LABS: HEMATOCRIT 26.2 % (42.0-52.0); HEMOGLOBIN 8.4 g/dl (14.0-18.0); MEAN CELL VOLUME 95.6 fl (80.0-94.0); MEAN CORPUSCULAR HGB 30.7 pg (27.0-31.0); MEAN CORPUSCULAR HGB CONC 32.1 g/dl (33.0-37.0); MEAN PLATELET VOLUME 9.9 fl (9.6-12.3); PLATELET COUNT AUTOMATED 59 10*3/uL (130-400); RED BLOOD COUNT 2.74 10*6/uL (4.50-5.90); RED CELL DISTRI WIDTH 16.7 % (0-14.5)
[2016-09-26 11:01] LABS: EOSINOPHILS 1 % (1-4); LYMPHOCYTE # 0.4 10*3/uL (1.3-4.4); MONOCYTE # 0.1 10*3/uL (0.1-1.0); NEUTROPHILS 64 % (47-73); PLATELET SUFFICIENCY LOW (NORMAL); POLYCHROMASIA SLIGHT; TOTAL CELLS COUNTED 100 #CELLS
[2016-09-26 11:03] LABS: WHITE BLOOD COUNT 1.5 10*3/uL (4.8-10.8)
== END | disposition home or self-care (01) ==
LOC: LAB 10:17
PROVIDERS: Internal Medicine Hematology & Oncology
DX: C34.90 Malignant neoplasm of unspecified part of unspecified bronchus or lung (principal)

== ENCOUNTER → 2016-10-03 | Outpatient (CLI) | payer MEDICARE, MEDICAID ==
[2016-10-03 11:30] LABS: HEMATOCRIT 27.2 % (42.0-52.0); HEMOGLOBIN 8.6 g/dl (14.0-18.0); MEAN CELL VOLUME 96.8 fl (80.0-94.0); MEAN CORPUSCULAR HGB 30.6 pg (27.0-31.0); MEAN CORPUSCULAR HGB CONC 31.6 g/dl (33.0-37.0); MEAN PLATELET VOLUME 11.1 fl (9.6-12.3); NUCLEATED RED BLOOD CELL 0.4 % (0.0-0.0); PLATELET COUNT AUTOMATED 38 10*3/uL (130-400); RED BLOOD COUNT 2.81 10*6/uL (4.50-5.90); RED CELL DISTRI WIDTH 17.3 % (0-14.5)
[2016-10-03 11:47] LABS: EOSINOPHIL # 0.1 10*3/uL (0-0.4); EOSINOPHILS 2 % (1-4); MONOCYTE # 0.4 10*3/uL (0.1-1.0); NEUTROPHIL # 3.6 10*3/uL (2.3-7.9); NEUTROPHILS 71 % (47-73); PLATELET SUFFICIENCY LOW (NORMAL); POLYCHROMASIA SLIGHT; ROULEAUX MODERATE; TOTAL CELLS COUNTED 100 #CELLS
[2016-10-03 11:55] LABS: ALBUMIN 3.4 gm/dl (3.1-4.5); ALKALINE PHOSPHATASE 97 U/L (45-117); BILIRUBIN, TOTAL 0.2 mg/dl (0.2-1.0); BUN 34 mg/dl (7-24); CARBON DIOXIDE 28 mmol/L (21-32); CHLORIDE 114 mmol/L (98-107); EST GLOM FILT AFRICAN AMERICAN > 60 ml/min; GLUCOSE 56 mg/dL (65-99); POTASSIUM 4.6 mmol/L (3.5-5.1); SGOT/AST 23 IU/L (3-35); SGPT/ALT 21 U/L (12-78); SODIUM 150 mmol/L (136-145); TOTAL PROTEIN 7.1 gm/dL (6.4-8.2)
== END | disposition home or self-care (01) ==
LOC: LAB 10:44
PROVIDERS: Internal Medicine Hematology & Oncology
DX: C34.90 Malignant neoplasm of unspecified part of unspecified bronchus or lung (principal)

== ENCOUNTER → 2016-10-10 | Outpatient (CLI) | payer MEDICARE, MEDICAID ==
[2016-10-10 11:16] LABS: HEMATOCRIT 24.9 % (42.0-52.0); HEMOGLOBIN 8.1 g/dl (14.0-18.0); MEAN CELL VOLUME 95.8 fl (80.0-94.0); MEAN CORPUSCULAR HGB 31.2 pg (27.0-31.0); MEAN CORPUSCULAR HGB CONC 32.5 g/dl (33.0-37.0); MEAN PLATELET VOLUME 11.9 fl (9.6-12.3); PLATELET COUNT AUTOMATED 45 10*3/uL (130-400); RED CELL DISTRI WIDTH 18.5 % (0-14.5)
[2016-10-10 11:40] LABS: LYMPHOCYTE # 0.5 10*3/uL (1.3-4.4); MONOCYTE # 0.1 10*3/uL (0.1-1.0); NEUTROPHIL # 0.8 10*3/uL (2.3-7.9); NEUTROPHILS 55 % (47-73); TOTAL CELLS COUNTED 100 #CELLS
[2016-10-10 11:41] LABS: PLATELET SUFFICIENCY LOW (NORMAL); ROULEAUX SLIGHT; TEAR DROP CELLS FEW
[2016-10-10 11:42] LABS: POLYCHROMASIA SLIGHT
[2016-10-10 12:53] LABS: WHITE BLOOD COUNT 1.4 10*3/uL (4.8-10.8)
== END | disposition home or self-care (01) ==
LOC: LAB 10:40
PROVIDERS: Internal Medicine Hematology & Oncology
DX: C34.90 Malignant neoplasm of unspecified part of unspecified bronchus or lung (principal)

== ENCOUNTER → 2016-10-13 | Outpatient (CLI) | payer MEDICARE, MEDICAID ==
[2016-10-13] VITALS (8 sets, daily range): BP systolic 119–150; BP diastolic 50–86
== END | disposition home or self-care (01) ==
LOC: TRNFUSION 01:12
DX: C34.11 Malignant neoplasm of upper lobe, right bronchus or lung (principal)

== ENCOUNTER → 2016-10-17 | Outpatient (CLI) | payer MEDICARE, MEDICAID ==
[2016-10-17 11:49] LABS: HEMATOCRIT 33.4 % (42.0-52.0); HEMOGLOBIN 10.9 g/dl (14.0-18.0); MEAN CELL VOLUME 95.2 fl (80.0-94.0); MEAN CORPUSCULAR HGB 31.1 pg (27.0-31.0); MEAN CORPUSCULAR HGB CONC 32.6 g/dl (33.0-37.0); MEAN PLATELET VOLUME 12.2 fl (9.6-12.3); PLATELET COUNT AUTOMATED 44 10*3/uL (130-400); RED BLOOD COUNT 3.51 10*6/uL (4.50-5.90); RED CELL DISTRI WIDTH 20.4 % (0-14.5); WHITE BLOOD COUNT 5.3 10*3/uL (4.8-10.8)
[2016-10-17 12:10] LABS: EOSINOPHIL # 0.1 10*3/uL (0-0.4); EOSINOPHILS 1 % (1-4); LYMPHOCYTE # 0.8 10*3/uL (1.3-4.4); MONOCYTE # 0.3 10*3/uL (0.1-1.0); NEUTROPHIL # 4.1 10*3/uL (2.3-7.9); NEUTROPHILS 77 % (47-73); TOTAL CELLS COUNTED 100 #CELLS
[2016-10-17 12:11] LABS: PLATELET SUFFICIENCY LOW (NORMAL); POLYCHROMASIA SLIGHT; TEAR DROP CELLS FEW
[2016-10-17 12:15] LABS: ALBUMIN 3.7 gm/dl (3.1-4.5); ALKALINE PHOSPHATASE 101 U/L (45-117); BILIRUBIN, TOTAL 0.6 mg/dl (0.2-1.0); BUN 26 mg/dl (7-24); CARBON DIOXIDE 27 mmol/L (21-32); CHLORIDE 111 mmol/L (98-107); EST GLOM FILT AFRICAN AMERICAN > 60 ml/min; GLUCOSE 100 mg/dL (65-99); POTASSIUM 4.1 mmol/L (3.5-5.1); SGOT/AST 24 IU/L (3-35); SGPT/ALT 14 U/L (12-78); SODIUM 146 mmol/L (136-145)
== END | disposition home or self-care (01) ==
LOC: LAB 11:29
PROVIDERS: Internal Medicine Hematology & Oncology
DX: C34.90 Malignant neoplasm of unspecified part of unspecified bronchus or lung (principal)

== ENCOUNTER → 2016-10-24 | Outpatient (CLI) | payer MEDICARE, MEDICAID ==
[2016-10-24 11:46] LABS: EOS # 0.1 10*3/uL (0.0-0.4); EOS % 1.5 % (1.0-4.0); HEMOGLOBIN 10.7 g/dl (14.0-18.0); LYMPH # 0.9 10*3/uL (1.3-4.4); MEAN CELL VOLUME 98.2 fl (80.0-94.0); MEAN CORPUSCULAR HGB 31.8 pg (27.0-31.0); MEAN CORPUSCULAR HGB CONC 32.4 g/dl (33.0-37.0); MEAN PLATELET VOLUME 10.4 fl (9.6-12.3); MONO # 0.5 10*3/uL (0.1-1.0); MONO % 11.9 % (3.0-9.0); NEUT # 3.1 10*3/uL (2.3-7.9); NEUT % 67.4 % (47.0-73.0); PLATELET COUNT AUTOMATED 106 10*3/uL (130-400); RED BLOOD COUNT 3.36 10*6/uL (4.50-5.90); RED CELL DISTRI WIDTH 20.8 % (0-14.5); WHITE BLOOD COUNT 4.5 10*3/uL (4.8-10.8)
== END | disposition home or self-care (01) ==
LOC: LAB 11:03
PROVIDERS: Internal Medicine Hematology & Oncology
DX: C34.90 Malignant neoplasm of unspecified part of unspecified bronchus or lung (principal)

== ENCOUNTER → 2016-10-31 | Outpatient (CLI) | payer MEDICARE, MEDICAID ==
[2016-10-31 11:40] LABS: HEMATOCRIT 29.4 % (42.0-52.0); HEMOGLOBIN 9.4 g/dl (14.0-18.0); MEAN CELL VOLUME 99.3 fl (80.0-94.0); MEAN CORPUSCULAR HGB 31.8 pg (27.0-31.0); MEAN PLATELET VOLUME 9.5 fl (9.6-12.3); PLATELET COUNT AUTOMATED 59 10*3/uL (130-400); RED BLOOD COUNT 2.96 10*6/uL (4.50-5.90); RED CELL DISTRI WIDTH 19.8 % (0-14.5); WHITE BLOOD COUNT 3.3 10*3/uL (4.8-10.8)
[2016-10-31 12:01] LABS: LYMPHOCYTE # 0.5 10*3/uL (1.3-4.4); MONOCYTE # 0.3 10*3/uL (0.1-1.0); NEUTROPHIL # 2.5 10*3/uL (2.3-7.9); NEUTROPHILS 76 % (47-73); PLATELET SUFFICIENCY LOW (NORMAL); TEAR DROP CELLS FEW; TOTAL CELLS COUNTED 100 #CELLS
[2016-10-31 12:09] LABS: ALBUMIN 3.4 gm/dl (3.1-4.5); ALKALINE PHOSPHATASE 90 U/L (45-117); BILIRUBIN, TOTAL 0.4 mg/dl (0.2-1.0); BUN 30 mg/dl (7-24); CARBON DIOXIDE 30 mmol/L (21-32); CHLORIDE 110 mmol/L (98-107); EST GLOM FILT AFRICAN AMERICAN > 60 ml/min; GLUCOSE 69 mg/dL (65-99); POTASSIUM 4.1 mmol/L (3.5-5.1); SGOT/AST 20 IU/L (3-35); SGPT/ALT 24 U/L (12-78); SODIUM 145 mmol/L (136-145); TOTAL PROTEIN 7.1 gm/dL (6.4-8.2)
== END | disposition home or self-care (01) ==
LOC: LAB 11:08
PROVIDERS: Internal Medicine Hematology & Oncology
DX: C34.90 Malignant neoplasm of unspecified part of unspecified bronchus or lung (principal)

== ENCOUNTER → 2016-11-07 | Outpatient (CLI) | payer MEDICARE, MEDICAID ==
[2016-11-07 10:29] LABS: HEMATOCRIT 26.5 % (42.0-52.0); HEMOGLOBIN 8.4 g/dl (14.0-18.0); MEAN CELL VOLUME 99.6 fl (80.0-94.0); MEAN CORPUSCULAR HGB 31.6 pg (27.0-31.0); MEAN CORPUSCULAR HGB CONC 31.7 g/dl (33.0-37.0); MEAN PLATELET VOLUME 10.8 fl (9.6-12.3); PLATELET COUNT AUTOMATED 32 10*3/uL (130-400); RED BLOOD COUNT 2.66 10*6/uL (4.50-5.90); RED CELL DISTRI WIDTH 19.9 % (0-14.5); WHITE BLOOD COUNT 2.9 10*3/uL (4.8-10.8)
[2016-11-07 10:48] LABS: ALBUMIN 3.3 gm/dl (3.1-4.5); ALKALINE PHOSPHATASE 83 U/L (45-117); BASOPHILS 1 % (0-1); BILIRUBIN, TOTAL 0.4 mg/dl (0.2-1.0); BUN 27 mg/dl (7-24); CARBON DIOXIDE 26 mmol/L (21-32); CHLORIDE 114 mmol/L (98-107); EOSINOPHIL # 0.1 10*3/uL (0-0.4); EOSINOPHILS 2 % (1-4); EST GLOM FILT AFRICAN AMERICAN > 60 ml/min; GLUCOSE 82 mg/dL (65-99); LYMPHOCYTE # 0.4 10*3/uL (1.3-4.4); MONOCYTE # 0.1 10*3/uL (0.1-1.0); NEUTROPHIL # 2.3 10*3/uL (2.3-7.9); NEUTROPHILS 80 % (47-73); OVALOCYTES FEW; PLATELET SUFFICIENCY LOW (NORMAL); POLYCHROMASIA SLIGHT; POTASSIUM 3.8 mmol/L (3.5-5.1); SGOT/AST 18 IU/L (3-35); SGPT/ALT 18 U/L (12-78); SODIUM 148 mmol/L (136-145); TEAR DROP CELLS FEW; TOTAL CELLS COUNTED 100 #CELLS; TOTAL PROTEIN 6.8 gm/dL (6.4-8.2)
== END | disposition home or self-care (01) ==
LOC: LAB 09:59
PROVIDERS: Internal Medicine Hematology & Oncology
DX: C34.90 Malignant neoplasm of unspecified part of unspecified bronchus or lung (principal)

== ENCOUNTER → 2016-11-14 | Outpatient (CLI) | payer MEDICARE, MEDICAID ==
[2016-11-14 11:18] LABS: EOS % 1.1 % (1.0-4.0); HEMATOCRIT 30.2 % (42.0-52.0); HEMOGLOBIN 9.7 g/dl (14.0-18.0); LYMPH # 0.8 10*3/uL (1.3-4.4); LYMPH % 21.9 % (27.0-41.0); MEAN CORPUSCULAR HGB 32.4 pg (27.0-31.0); MEAN CORPUSCULAR HGB CONC 32.1 g/dl (33.0-37.0); MEAN PLATELET VOLUME 10.2 fl (9.6-12.3); MONO # 0.4 10*3/uL (0.1-1.0); MONO % 9.7 % (3.0-9.0); NEUT # 2.4 10*3/uL (2.3-7.9); NEUT % 67.3 % (47.0-73.0); PLATELET COUNT AUTOMATED 79 10*3/uL (130-400); RED BLOOD COUNT 2.99 10*6/uL (4.50-5.90); RED CELL DISTRI WIDTH 21.1 % (0-14.5); WHITE BLOOD COUNT 3.6 10*3/uL (4.8-10.8)
[2016-11-14 11:46] LABS: ALBUMIN 3.6 gm/dl (3.1-4.5); ALKALINE PHOSPHATASE 103 U/L (45-117); BILIRUBIN, TOTAL 0.5 mg/dl (0.2-1.0); BUN 23 mg/dl (7-24); CARBON DIOXIDE 26 mmol/L (21-32); CHLORIDE 111 mmol/L (98-107); EST GLOM FILT AFRICAN AMERICAN > 60 ml/min; GLUCOSE 85 mg/dL (65-99); POTASSIUM 4.5 mmol/L (3.5-5.1); SGOT/AST 21 IU/L (3-35); SGPT/ALT 16 U/L (12-78); SODIUM 145 mmol/L (136-145); TOTAL PROTEIN 7.3 gm/dL (6.4-8.2)
== END | disposition home or self-care (01) ==
LOC: LAB 10:43
PROVIDERS: Internal Medicine Hematology & Oncology
DX: C34.90 Malignant neoplasm of unspecified part of unspecified bronchus or lung (principal)

== ENCOUNTER → 2016-11-21 | Outpatient (CLI) | payer MEDICARE, MEDICAID ==
[2016-11-21 10:47] LABS: EOS % 1.4 % (1.0-4.0); HEMATOCRIT 26.8 % (42.0-52.0); HEMOGLOBIN 8.6 g/dl (14.0-18.0); LYMPH # 0.9 10*3/uL (1.3-4.4); LYMPH % 30.5 % (27.0-41.0); MEAN CELL VOLUME 101.5 fl (80.0-94.0); MEAN CORPUSCULAR HGB 32.6 pg (27.0-31.0); MEAN CORPUSCULAR HGB CONC 32.1 g/dl (33.0-37.0); MEAN PLATELET VOLUME 10.4 fl (9.6-12.3); MONO # 0.2 10*3/uL (0.1-1.0); MONO % 8.2 % (3.0-9.0); NEUT # 1.7 10*3/uL (2.3-7.9); NEUT % 59.5 % (47.0-73.0); PLATELET COUNT AUTOMATED 84 10*3/uL (130-400); RED BLOOD COUNT 2.64 10*6/uL (4.50-5.90); RED CELL DISTRI WIDTH 19.7 % (0-14.5); WHITE BLOOD COUNT 2.8 10*3/uL (4.8-10.8)
== END | disposition home or self-care (01) ==
LOC: LAB 10:11
PROVIDERS: Internal Medicine Hematology & Oncology
DX: C34.90 Malignant neoplasm of unspecified part of unspecified bronchus or lung (principal)

== ENCOUNTER → 2016-11-28 | Outpatient (CLI) | payer MEDICARE, MEDICAID ==
[2016-11-28 11:24] LABS: BASO % 0.3 % (0.0-1.0); EOS % 0.8 % (1.0-4.0); LYMPH # 0.7 10*3/uL (1.3-4.4); LYMPH % 18.6 % (27.0-41.0); MEAN CELL VOLUME 103.7 fl (80.0-94.0); MEAN CORPUSCULAR HGB 33.3 pg (27.0-31.0); MEAN CORPUSCULAR HGB CONC 32.1 g/dl (33.0-37.0); MEAN PLATELET VOLUME 10.5 fl (9.6-12.3); MONO # 0.3 10*3/uL (0.1-1.0); NEUT # 2.8 10*3/uL (2.3-7.9); NEUT % 72.5 % (47.0-73.0); PLATELET COUNT AUTOMATED 109 10*3/uL (130-400); RED CELL DISTRI WIDTH 19.7 % (0-14.5); WHITE BLOOD COUNT 3.9 10*3/uL (4.8-10.8)
[2016-11-28 11:54] LABS: ALBUMIN 3.4 gm/dl (3.1-4.5); BILIRUBIN, TOTAL 0.4 mg/dl (0.2-1.0); POTASSIUM 4.4 mmol/L (3.5-5.1); TOTAL PROTEIN 6.8 gm/dL (6.4-8.2)
== END | disposition home or self-care (01) ==
LOC: LAB 10:24
PROVIDERS: Internal Medicine Hematology & Oncology
DX: C34.90 Malignant neoplasm of unspecified part of unspecified bronchus or lung (principal)

== ENCOUNTER → 2016-12-05 | Outpatient (CLI) | payer MEDICARE, MEDICAID ==
[2016-12-05 11:07] LABS: BASO % 0.2 % (0.0-1.0); EOS % 0.8 % (1.0-4.0); HEMATOCRIT 30.1 % (42.0-52.0); HEMOGLOBIN 9.7 g/dl (14.0-18.0); LYMPH # 1.1 10*3/uL (1.3-4.4); LYMPH % 20.9 % (27.0-41.0); MEAN CELL VOLUME 102.7 fl (80.0-94.0); MEAN CORPUSCULAR HGB 33.1 pg (27.0-31.0); MEAN CORPUSCULAR HGB CONC 32.2 g/dl (33.0-37.0); MEAN PLATELET VOLUME 9.8 fl (9.6-12.3); MONO # 0.7 10*3/uL (0.1-1.0); MONO % 13.3 % (3.0-9.0); NEUT # 3.2 10*3/uL (2.3-7.9); NEUT % 64.2 % (47.0-73.0); PLATELET COUNT AUTOMATED 124 10*3/uL (130-400); RED BLOOD COUNT 2.93 10*6/uL (4.50-5.90)
== END | disposition home or self-care (01) ==
LOC: LAB 10:45
PROVIDERS: Internal Medicine Hematology & Oncology
DX: C34.90 Malignant neoplasm of unspecified part of unspecified bronchus or lung (principal)

== ENCOUNTER → 2016-12-12 | Outpatient (CLI) | payer MEDICARE, MEDICAID ==
[2016-12-12 11:36] LABS: BASO % 0.2 % (0.0-1.0); EOS # 0.1 10*3/uL (0.0-0.4); EOS % 0.8 % (1.0-4.0); HEMATOCRIT 31.6 % (42.0-52.0); HEMOGLOBIN 10.1 g/dl (14.0-18.0); LYMPH # 0.8 10*3/uL (1.3-4.4); LYMPH % 13.9 % (27.0-41.0); MEAN CELL VOLUME 104.3 fl (80.0-94.0); MEAN CORPUSCULAR HGB 33.3 pg (27.0-31.0); MEAN PLATELET VOLUME 9.5 fl (9.6-12.3); MONO # 0.4 10*3/uL (0.1-1.0); MONO % 6.7 % (3.0-9.0); NEUT # 4.6 10*3/uL (2.3-7.9); NEUT % 77.7 % (47.0-73.0); PLATELET COUNT AUTOMATED 117 10*3/uL (130-400); RED BLOOD COUNT 3.03 10*6/uL (4.50-5.90); RED CELL DISTRI WIDTH 17.7 % (0-14.5)
== END | disposition home or self-care (01) ==
LOC: LAB 10:49
PROVIDERS: Internal Medicine Hematology & Oncology
DX: C34.90 Malignant neoplasm of unspecified part of unspecified bronchus or lung (principal)

== ENCOUNTER → 2016-12-19 | Outpatient (CLI) | payer MEDICARE, MEDICAID ==
[2016-12-19 11:33] LABS: BASO % 0.2 % (0.0-1.0); EOS # 0.1 10*3/uL (0.0-0.4); EOS % 1.1 % (1.0-4.0); HEMATOCRIT 31.3 % (42.0-52.0); LYMPH # 1.1 10*3/uL (1.3-4.4); LYMPH % 19.4 % (27.0-41.0); MEAN CELL VOLUME 104.3 fl (80.0-94.0); MEAN CORPUSCULAR HGB 33.3 pg (27.0-31.0); MEAN CORPUSCULAR HGB CONC 31.9 g/dl (33.0-37.0); MEAN PLATELET VOLUME 10.7 fl (9.6-12.3); MONO # 0.2 10*3/uL (0.1-1.0); MONO % 3.8 % (3.0-9.0); NEUT # 4.2 10*3/uL (2.3-7.9); NEUT % 75.1 % (47.0-73.0); PLATELET COUNT AUTOMATED 109 10*3/uL (130-400); RED CELL DISTRI WIDTH 16.9 % (0-14.5); WHITE BLOOD COUNT 5.6 10*3/uL (4.8-10.8)
== END | disposition home or self-care (01) ==
LOC: LAB 11:15
PROVIDERS: Internal Medicine Hematology & Oncology
DX: C34.90 Malignant neoplasm of unspecified part of unspecified bronchus or lung (principal)

== ENCOUNTER → 2016-12-26 | Outpatient (CLI) | payer MEDICARE, MEDICAID ==
[2016-12-26 10:57] LABS: BASO % 0.2 % (0.0-1.0); EOS # 0.1 10*3/uL (0.0-0.4); EOS % 1.6 % (1.0-4.0); HEMATOCRIT 31.4 % (42.0-52.0); HEMOGLOBIN 10.3 g/dl (14.0-18.0); LYMPH # 0.8 10*3/uL (1.3-4.4); LYMPH % 19.2 % (27.0-41.0); MEAN CORPUSCULAR HGB 33.8 pg (27.0-31.0); MEAN CORPUSCULAR HGB CONC 32.8 g/dl (33.0-37.0); MEAN PLATELET VOLUME 10.5 fl (9.6-12.3); MONO # 0.3 10*3/uL (0.1-1.0); MONO % 7.1 % (3.0-9.0); NEUT # 3.1 10*3/uL (2.3-7.9); NEUT % 71.2 % (47.0-73.0); PLATELET COUNT AUTOMATED 112 10*3/uL (130-400); RED BLOOD COUNT 3.05 10*6/uL (4.50-5.90); RED CELL DISTRI WIDTH 15.8 % (0-14.5); WHITE BLOOD COUNT 4.4 10*3/uL (4.8-10.8)
== END | disposition home or self-care (01) ==
LOC: LAB 07:31
PROVIDERS: Internal Medicine Hematology & Oncology
DX: C34.30 Malignant neoplasm of lower lobe, unspecified bronchus or lung (principal)

== ENCOUNTER → 2017-01-02 | Outpatient (CLI) | payer MEDICARE, MEDICAID ==
[2017-01-02 12:06] LABS: BASO % 0.2 % (0.0-1.0); EOS # 0.1 10*3/uL (0.0-0.4); EOS % 1.7 % (1.0-4.0); HEMATOCRIT 33.9 % (42.0-52.0); LYMPH # 0.9 10*3/uL (1.3-4.4); LYMPH % 22.3 % (27.0-41.0); MEAN CELL VOLUME 103.4 fl (80.0-94.0); MEAN CORPUSCULAR HGB 33.5 pg (27.0-31.0); MEAN CORPUSCULAR HGB CONC 32.4 g/dl (33.0-37.0); MEAN PLATELET VOLUME 9.9 fl (9.6-12.3); MONO # 0.5 10*3/uL (0.1-1.0); MONO % 11.9 % (3.0-9.0); NEUT # 2.6 10*3/uL (2.3-7.9); NEUT % 63.7 % (47.0-73.0); PLATELET COUNT AUTOMATED 127 10*3/uL (130-400); RED BLOOD COUNT 3.28 10*6/uL (4.50-5.90); RED CELL DISTRI WIDTH 15.5 % (0-14.5); WHITE BLOOD COUNT 4.1 10*3/uL (4.8-10.8)
[2017-01-02 12:11] LABS: ALBUMIN 3.6 gm/dl (3.1-4.5); ALKALINE PHOSPHATASE 110 U/L (45-117); BILIRUBIN, TOTAL 0.6 mg/dl (0.2-1.0); BUN 40 mg/dl (7-24); CARBON DIOXIDE 25 mmol/L (21-32); CHLORIDE 110 mmol/L (98-107); EST GLOM FILT AFRICAN AMERICAN > 60 ml/min; GLUCOSE 79 mg/dL (65-99); POTASSIUM 4.2 mmol/L (3.5-5.1); SGOT/AST 21 IU/L (3-35); SGPT/ALT 15 U/L (12-78); SODIUM 143 mmol/L (136-145); TOTAL PROTEIN 7.5 gm/dL (6.4-8.2)
== END | disposition home or self-care (01) ==
LOC: LAB 11:10
PROVIDERS: Internal Medicine Hematology & Oncology
DX: C34.30 Malignant neoplasm of lower lobe, unspecified bronchus or lung (principal); R79.89 Other specified abnormal findings of blood chemistry

== ENCOUNTER → 2017-01-09 | Outpatient (CLI) | payer MEDICARE, MEDICAID ==
[2017-01-09 12:05] LABS: BASO % 0.4 % (0.0-1.0); EOS # 0.1 10*3/uL (0.0-0.4); EOS % 1.9 % (1.0-4.0); HEMATOCRIT 32.6 % (42.0-52.0); HEMOGLOBIN 10.5 g/dl (14.0-18.0); LYMPH # 0.9 10*3/uL (1.3-4.4); LYMPH % 19.4 % (27.0-41.0); MEAN CELL VOLUME 103.2 fl (80.0-94.0); MEAN CORPUSCULAR HGB 33.2 pg (27.0-31.0); MEAN CORPUSCULAR HGB CONC 32.2 g/dl (33.0-37.0); MEAN PLATELET VOLUME 10.5 fl (9.6-12.3); MONO # 0.2 10*3/uL (0.1-1.0); NEUT # 3.4 10*3/uL (2.3-7.9); NEUT % 72.4 % (47.0-73.0); PLATELET COUNT AUTOMATED 95 10*3/uL (130-400); RED BLOOD COUNT 3.16 10*6/uL (4.50-5.90); RED CELL DISTRI WIDTH 14.8 % (0-14.5); WHITE BLOOD COUNT 4.6 10*3/uL (4.8-10.8)
== END | disposition home or self-care (01) ==
LOC: LAB 11:42
PROVIDERS: Internal Medicine Hematology & Oncology
DX: C34.90 Malignant neoplasm of unspecified part of unspecified bronchus or lung (principal)

== ENCOUNTER → 2017-01-16 | Outpatient (CLI) | payer MEDICARE, MEDICAID ==
[2017-01-16 12:10] LABS: BASO % 0.2 % (0.0-1.0); EOS # 0.1 10*3/uL (0.0-0.4); EOS % 1.8 % (1.0-4.0); HEMATOCRIT 32.4 % (42.0-52.0); HEMOGLOBIN 10.2 g/dl (14.0-18.0); LYMPH # 0.9 10*3/uL (1.3-4.4); LYMPH % 19.1 % (27.0-41.0); MEAN CELL VOLUME 104.5 fl (80.0-94.0); MEAN CORPUSCULAR HGB 32.9 pg (27.0-31.0); MEAN CORPUSCULAR HGB CONC 31.5 g/dl (33.0-37.0); MEAN PLATELET VOLUME 10.7 fl (9.6-12.3); MONO # 0.3 10*3/uL (0.1-1.0); MONO % 6.4 % (3.0-9.0); NEUT # 3.5 10*3/uL (2.3-7.9); NEUT % 71.9 % (47.0-73.0); PLATELET COUNT AUTOMATED 106 10*3/uL (130-400); RED CELL DISTRI WIDTH 15.1 % (0-14.5); WHITE BLOOD COUNT 4.9 10*3/uL (4.8-10.8)
[2017-01-16 12:28] LABS: ALBUMIN 3.5 gm/dl (3.1-4.5); BILIRUBIN, TOTAL 0.4 mg/dl (0.2-1.0); POTASSIUM 4.8 mmol/L (3.5-5.1); TOTAL PROTEIN 7.4 gm/dL (6.4-8.2)
== END | disposition home or self-care (01) ==
LOC: LAB 11:12
PROVIDERS: Internal Medicine Hematology & Oncology
DX: C34.90 Malignant neoplasm of unspecified part of unspecified bronchus or lung (principal)

== ENCOUNTER → 2017-01-23 | Outpatient (CLI) | payer MEDICARE, MEDICAID ==
[2017-01-23 13:01] LABS: BASO % 0.2 % (0.0-1.0); EOS # 0.1 10*3/uL (0.0-0.4); EOS % 1.2 % (1.0-4.0); HEMATOCRIT 31.4 % (42.0-52.0); LYMPH % 25.4 % (27.0-41.0); MEAN CELL VOLUME 103.3 fl (80.0-94.0); MEAN CORPUSCULAR HGB 32.9 pg (27.0-31.0); MEAN CORPUSCULAR HGB CONC 31.8 g/dl (33.0-37.0); MEAN PLATELET VOLUME 10.5 fl (9.6-12.3); MONO # 0.4 10*3/uL (0.1-1.0); MONO % 9.7 % (3.0-9.0); NEUT # 2.5 10*3/uL (2.3-7.9); PLATELET COUNT AUTOMATED 114 10*3/uL (130-400); RED BLOOD COUNT 3.04 10*6/uL (4.50-5.90); RED CELL DISTRI WIDTH 14.8 % (0-14.5)
== END | disposition home or self-care (01) ==
LOC: LAB 07:27
PROVIDERS: Internal Medicine Hematology & Oncology
DX: C34.90 Malignant neoplasm of unspecified part of unspecified bronchus or lung (principal)

== ENCOUNTER → 2017-01-30 | Outpatient (CLI) | payer MEDICARE, MEDICAID ==
[2017-01-30 12:57] LABS: BASO % 0.2 % (0.0-1.0); EOS # 0.1 10*3/uL (0.0-0.4); EOS % 1.1 % (1.0-4.0); HEMATOCRIT 30.6 % (42.0-52.0); HEMOGLOBIN 9.9 g/dl (14.0-18.0); LYMPH # 0.8 10*3/uL (1.3-4.4); LYMPH % 13.5 % (27.0-41.0); MEAN CELL VOLUME 103.4 fl (80.0-94.0); MEAN CORPUSCULAR HGB 33.4 pg (27.0-31.0); MEAN CORPUSCULAR HGB CONC 32.4 g/dl (33.0-37.0); MEAN PLATELET VOLUME 10.4 fl (9.6-12.3); MONO # 0.7 10*3/uL (0.1-1.0); MONO % 10.5 % (3.0-9.0); NEUT # 4.6 10*3/uL (2.3-7.9); NEUT % 74.2 % (47.0-73.0); PLATELET COUNT AUTOMATED 124 10*3/uL (130-400); RED BLOOD COUNT 2.96 10*6/uL (4.50-5.90); RED CELL DISTRI WIDTH 14.6 % (0-14.5); WHITE BLOOD COUNT 6.2 10*3/uL (4.8-10.8)
== END | disposition home or self-care (01) ==
LOC: LAB 12:00
PROVIDERS: Internal Medicine Hematology & Oncology
DX: C34.90 Malignant neoplasm of unspecified part of unspecified bronchus or lung (principal)

== ENCOUNTER → 2017-02-06 | Outpatient (CLI) | payer MEDICARE, MEDICAID ==
[2017-02-06 11:39] LABS: BASO % 0.2 % (0.0-1.0); EOS # 0.1 10*3/uL (0.0-0.4); EOS % 2.2 % (1.0-4.0); HEMATOCRIT 31.7 % (42.0-52.0); HEMOGLOBIN 9.8 g/dl (14.0-18.0); LYMPH # 0.8 10*3/uL (1.3-4.4); LYMPH % 16.1 % (27.0-41.0); MEAN CORPUSCULAR HGB 32.5 pg (27.0-31.0); MEAN CORPUSCULAR HGB CONC 30.9 g/dl (33.0-37.0); MEAN PLATELET VOLUME 9.6 fl (9.6-12.3); MONO # 0.3 10*3/uL (0.1-1.0); MONO % 6.4 % (3.0-9.0); NEUT # 3.7 10*3/uL (2.3-7.9); NEUT % 74.7 % (47.0-73.0); PLATELET COUNT AUTOMATED 111 10*3/uL (130-400); RED BLOOD COUNT 3.02 10*6/uL (4.50-5.90); RED CELL DISTRI WIDTH 14.6 % (0-14.5)
== END | disposition home or self-care (01) ==
LOC: LAB 11:19
PROVIDERS: Internal Medicine Hematology & Oncology
DX: C34.90 Malignant neoplasm of unspecified part of unspecified bronchus or lung (principal)

== ENCOUNTER → 2017-02-13 | Outpatient (CLI) | payer MEDICARE, MEDICAID ==
[2017-02-13 12:42] LABS: BASO % 0.2 % (0.0-1.0); EOS # 0.1 10*3/uL (0.0-0.4); HEMATOCRIT 32.3 % (42.0-52.0); HEMOGLOBIN 10.4 g/dl (14.0-18.0); LYMPH # 0.8 10*3/uL (1.3-4.4); LYMPH % 16.2 % (27.0-41.0); MEAN CELL VOLUME 104.2 fl (80.0-94.0); MEAN CORPUSCULAR HGB 33.5 pg (27.0-31.0); MEAN CORPUSCULAR HGB CONC 32.2 g/dl (33.0-37.0); MEAN PLATELET VOLUME 10.7 fl (9.6-12.3); MONO # 0.2 10*3/uL (0.1-1.0); MONO % 4.4 % (3.0-9.0); NEUT % 77.4 % (47.0-73.0); PLATELET COUNT AUTOMATED 112 10*3/uL (130-400); RED CELL DISTRI WIDTH 14.6 % (0-14.5); WHITE BLOOD COUNT 5.2 10*3/uL (4.8-10.8)
[2017-02-13 13:27] LABS: ALBUMIN 3.1 gm/dl (3.1-4.5); ALKALINE PHOSPHATASE 103 U/L (45-117); BUN 21 mg/dl (7-24); CHLORIDE 109 mmol/L (98-107); CREATININE 1.27 mg/dL (0.70-1.30); POTASSIUM 4.1 mmol/L (3.5-5.1); SGOT/AST 11 IU/L (3-35); SGPT/ALT 13 U/L (12-78); SODIUM 143 mmol/L (136-145); TOTAL PROTEIN 6.9 gm/dL (6.4-8.2)
== END | disposition home or self-care (01) ==
LOC: LAB 12:14
PROVIDERS: Internal Medicine Hematology & Oncology
DX: C34.90 Malignant neoplasm of unspecified part of unspecified bronchus or lung (principal)

== ENCOUNTER → 2017-02-20 | Outpatient (CLI) | payer MEDICARE, MEDICAID ==
[2017-02-20 12:54] LABS: BASO % 0.5 % (0.0-1.0); EOS # 0.1 10*3/uL (0.0-0.4); EOS % 1.5 % (1.0-4.0); HEMATOCRIT 31.4 % (42.0-52.0); HEMOGLOBIN 9.8 g/dl (14.0-18.0); LYMPH # 0.9 10*3/uL (1.3-4.4); LYMPH % 21.9 % (27.0-41.0); MEAN CORPUSCULAR HGB 32.8 pg (27.0-31.0); MEAN CORPUSCULAR HGB CONC 31.2 g/dl (33.0-37.0); MEAN PLATELET VOLUME 10.9 fl (9.6-12.3); MONO # 0.3 10*3/uL (0.1-1.0); MONO % 6.7 % (3.0-9.0); NEUT # 2.7 10*3/uL (2.3-7.9); NEUT % 68.6 % (47.0-73.0); PLATELET COUNT AUTOMATED 111 10*3/uL (130-400); RED BLOOD COUNT 2.99 10*6/uL (4.50-5.90); RED CELL DISTRI WIDTH 14.7 % (0-14.5); WHITE BLOOD COUNT 3.9 10*3/uL (4.8-10.8)
== END | disposition home or self-care (01) ==
LOC: LAB 12:01
PROVIDERS: Internal Medicine Hematology & Oncology
DX: C34.90 Malignant neoplasm of unspecified part of unspecified bronchus or lung (principal)

== ENCOUNTER → 2017-02-27 | Outpatient (CLI) | payer MEDICARE, MEDICAID ==
[2017-02-27 13:21] LABS: BASO % 0.2 % (0.0-1.0); EOS # 0.1 10*3/uL (0.0-0.4); EOS % 1.3 % (1.0-4.0); HEMATOCRIT 29.1 % (42.0-52.0); HEMOGLOBIN 9.3 g/dl (14.0-18.0); LYMPH # 0.9 10*3/uL (1.3-4.4); LYMPH % 19.2 % (27.0-41.0); MEAN CELL VOLUME 100.7 fl (80.0-94.0); MEAN CORPUSCULAR HGB 32.2 pg (27.0-31.0); MEAN PLATELET VOLUME 10.5 fl (9.6-12.3); MONO # 0.7 10*3/uL (0.1-1.0); MONO % 15.9 % (3.0-9.0); NEUT # 2.9 10*3/uL (2.3-7.9); NEUT % 63.2 % (47.0-73.0); PLATELET COUNT AUTOMATED 114 10*3/uL (130-400); RED BLOOD COUNT 2.89 10*6/uL (4.50-5.90); RED CELL DISTRI WIDTH 14.9 % (0-14.5); WHITE BLOOD COUNT 4.6 10*3/uL (4.8-10.8)
== END | disposition home or self-care (01) ==
LOC: LAB 12:06
PROVIDERS: Internal Medicine Hematology & Oncology
DX: C34.90 Malignant neoplasm of unspecified part of unspecified bronchus or lung (principal)

== ENCOUNTER → 2017-03-06 | Outpatient (CLI) | payer MEDICARE, MEDICAID ==
[2017-03-06 12:11] LABS: BASO % 0.2 % (0.0-1.0); EOS # 0.1 10*3/uL (0.0-0.4); EOS % 1.6 % (1.0-4.0); HEMATOCRIT 29.7 % (42.0-52.0); HEMOGLOBIN 9.4 g/dl (14.0-18.0); LYMPH # 0.8 10*3/uL (1.3-4.4); LYMPH % 14.7 % (27.0-41.0); MEAN CORPUSCULAR HGB CONC 31.6 g/dl (33.0-37.0); MEAN PLATELET VOLUME 10.5 fl (9.6-12.3); MONO # 0.3 10*3/uL (0.1-1.0); MONO % 5.7 % (3.0-9.0); NEUT # 3.9 10*3/uL (2.3-7.9); NEUT % 76.6 % (47.0-73.0); PLATELET COUNT AUTOMATED 135 10*3/uL (130-400); RED BLOOD COUNT 2.94 10*6/uL (4.50-5.90); RED CELL DISTRI WIDTH 14.7 % (0-14.5); WHITE BLOOD COUNT 5.1 10*3/uL (4.8-10.8)
== END | disposition home or self-care (01) ==
LOC: LAB 11:35
PROVIDERS: Internal Medicine Hematology & Oncology
DX: C34.90 Malignant neoplasm of unspecified part of unspecified bronchus or lung (principal)

== ENCOUNTER → 2017-03-13 | Outpatient (CLI) | payer MEDICARE, MEDICAID ==
[2017-03-13 12:52] LABS: BASO % 0.2 % (0.0-1.0); EOS # 0.1 10*3/uL (0.0-0.4); EOS % 1.4 % (1.0-4.0); HEMOGLOBIN 9.8 g/dl (14.0-18.0); LYMPH # 0.8 10*3/uL (1.3-4.4); LYMPH % 18.3 % (27.0-41.0); MEAN CORPUSCULAR HGB 31.9 pg (27.0-31.0); MEAN CORPUSCULAR HGB CONC 31.6 g/dl (33.0-37.0); MEAN PLATELET VOLUME 10.5 fl (9.6-12.3); MONO # 0.3 10*3/uL (0.1-1.0); MONO % 6.7 % (3.0-9.0); NEUT % 72.7 % (47.0-73.0); PLATELET COUNT AUTOMATED 135 10*3/uL (130-400); RED BLOOD COUNT 3.07 10*6/uL (4.50-5.90); RED CELL DISTRI WIDTH 15.2 % (0-14.5); WHITE BLOOD COUNT 4.2 10*3/uL (4.8-10.8)
[2017-03-13 13:07] LABS: ALBUMIN 3.3 gm/dl (3.1-4.5); ALKALINE PHOSPHATASE 104 U/L (45-117); BUN 21 mg/dl (7-24); CHLORIDE 110 mmol/L (98-107); CREATININE 1.31 mg/dL (0.70-1.30); POTASSIUM 4.6 mmol/L (3.5-5.1); SGOT/AST 15 IU/L (3-35); SGPT/ALT 14 U/L (12-78); SODIUM 143 mmol/L (136-145); TOTAL PROTEIN 7.2 gm/dL (6.4-8.2)
== END | disposition home or self-care (01) ==
LOC: LAB 12:22
PROVIDERS: Internal Medicine Hematology & Oncology
DX: C34.90 Malignant neoplasm of unspecified part of unspecified bronchus or lung (principal)

== ENCOUNTER → 2017-03-20 | Outpatient (CLI) | payer MEDICARE, MEDICAID ==
[2017-03-20 13:27] LABS: EOS # 0.1 10*3/uL (0.0-0.4); EOS % 2.2 % (1.0-4.0); HEMATOCRIT 28.7 % (42.0-52.0); HEMOGLOBIN 9.2 g/dl (14.0-18.0); LYMPH # 0.5 10*3/uL (1.3-4.4); LYMPH % 16.7 % (27.0-41.0); MEAN CELL VOLUME 99.7 fl (80.0-94.0); MEAN CORPUSCULAR HGB 31.9 pg (27.0-31.0); MEAN CORPUSCULAR HGB CONC 32.1 g/dl (33.0-37.0); MEAN PLATELET VOLUME 10.6 fl (9.6-12.3); MONO # 0.3 10*3/uL (0.1-1.0); MONO % 8.7 % (3.0-9.0); NEUT # 2.3 10*3/uL (2.3-7.9); NEUT % 72.1 % (47.0-73.0); PLATELET COUNT AUTOMATED 130 10*3/uL (130-400); RED BLOOD COUNT 2.88 10*6/uL (4.50-5.90); RED CELL DISTRI WIDTH 15.6 % (0-14.5); WHITE BLOOD COUNT 3.1 10*3/uL (4.8-10.8)
== END | disposition home or self-care (01) ==
LOC: LAB 12:32
PROVIDERS: Internal Medicine Hematology & Oncology
DX: C34.90 Malignant neoplasm of unspecified part of unspecified bronchus or lung (principal)

== ENCOUNTER → 2017-03-27 | Outpatient (CLI) | payer MEDICARE, MEDICAID ==
[2017-03-27 12:16] LABS: BASO % 0.2 % (0.0-1.0); EOS # 0.1 10*3/uL (0.0-0.4); EOS % 1.1 % (1.0-4.0); HEMATOCRIT 27.9 % (42.0-52.0); HEMOGLOBIN 8.6 g/dl (14.0-18.0); LYMPH # 0.4 10*3/uL (1.3-4.4); LYMPH % 7.1 % (27.0-41.0); MEAN CELL VOLUME 100.7 fl (80.0-94.0); MEAN CORPUSCULAR HGB CONC 30.8 g/dl (33.0-37.0); MONO # 0.6 10*3/uL (0.1-1.0); MONO % 9.7 % (3.0-9.0); NEUT % 81.6 % (47.0-73.0); PLATELET COUNT AUTOMATED 122 10*3/uL (130-400); RED BLOOD COUNT 2.77 10*6/uL (4.50-5.90); RED CELL DISTRI WIDTH 15.7 % (0-14.5); WHITE BLOOD COUNT 6.2 10*3/uL (4.8-10.8)
== END | disposition home or self-care (01) ==
LOC: LAB 08:00
PROVIDERS: Internal Medicine Hematology & Oncology
DX: C34.90 Malignant neoplasm of unspecified part of unspecified bronchus or lung (principal)

== ENCOUNTER → 2017-04-03 | Outpatient (CLI) | payer MEDICARE, MEDICAID ==
[2017-04-03 12:28] LABS: BASO % 0.3 % (0.0-1.0); EOS # 0.1 10*3/uL (0.0-0.4); EOS % 1.7 % (1.0-4.0); HEMATOCRIT 27.6 % (42.0-52.0); HEMOGLOBIN 8.4 g/dl (14.0-18.0); LYMPH # 0.8 10*3/uL (1.3-4.4); LYMPH % 10.1 % (27.0-41.0); MEAN CELL VOLUME 101.5 fl (80.0-94.0); MEAN CORPUSCULAR HGB 30.9 pg (27.0-31.0); MEAN CORPUSCULAR HGB CONC 30.4 g/dl (33.0-37.0); MONO # 0.7 10*3/uL (0.1-1.0); NEUT # 5.8 10*3/uL (2.3-7.9); NEUT % 77.8 % (47.0-73.0); PLATELET COUNT AUTOMATED 121 10*3/uL (130-400); RED BLOOD COUNT 2.72 10*6/uL (4.50-5.90); WHITE BLOOD COUNT 7.5 10*3/uL (4.8-10.8)
== END | disposition home or self-care (01) ==
LOC: LAB 11:56
PROVIDERS: Internal Medicine Hematology & Oncology
DX: Z51.11 Encounter for antineoplastic chemotherapy (principal); C34.11 Malignant neoplasm of upper lobe, right bronchus or lung

== ENCOUNTER 2017-04-10 11:28 | Inpatient (IN) | payer MEDICARE, MEDICAID ==
[~2017-04-10] VITALS: Ht 182.9 cm; Wt 81.8 kg
[2017-04-10] VITALS (14 sets, daily range): BP systolic 56–102; BP diastolic 35–55
--- NOTE | ~2017-04-10 | PR ---
[place], [place] PROGRESS NOTE NAME: SUKHDEV MCDERMOTT [facility] #: [id number] UNIT #: [id number] ROOM: [facility] DOCTOR: AFSANEH PHILLIPS MD BIRTHDATE: [birth year] DOS: 04/12/2017 SUBJECTIVE: The patient is doing better. He is awake, alert and responsive. PHYSICAL EXAMINATION VITAL SIGNS: Blood pressure 130/60, respiratory rate 17, pulse 98, temperature 99.8. HEENT: Normocephalic, atraumatic NECK AND THYROID: Supple. No JVD, thyromegaly, or lymphadenopathy. HEART: Normal S1, S2. Regular rate and rhythm. LUNGS: Clear to auscultation and percussion. ABDOMEN: Soft. Nontender, nondistended. Bowel sounds present. EXTREMITIES: Normal ROM. No clubbing. No edema. REVIEW OF SYSTEMS HEENT: No trouble swallowing. No double vision. No loss of vision. No pain. ENT AND RESPIRATORY: No wheeze. No change in voice. No cough. No shortness of breath. No coughing up blood. No epistaxis. CARDIOLOGIC: No chest pain. No dizziness. No irregular heartbeat. No leg edema. No palpitations. No shortness of breath. HEMATOLOGIC AND LYMPH: No past transfusion. No fatigue. No loss of appetite. No easy bruising. GASTROENTEROLOGIC: No change in bowel habits. No vomiting blood. No abdominal cramping. No nausea. No vomiting. No diarrhea. No constipation. No blood in stool. MALE REPRODUCTIVE: No testicular pain. No penile discharge. MUSCULOSKELETAL: No back pain. No muscle pain or weakness. No tingling/numbness. UROLOGIC: No pain with urination. No difficulty urinating. No frequent urination. NEUROLOGIC: No burning pain in feet. No trouble with coordination. No loss of consciousness. No headache. No tingling/numbness. No memory loss. LABORATORY DATA: Show sodium 141, potassium 3.9, chloride 110, bicarbonate 23, EGFR is more than 60. White count of 6.6, hemoglobin 8.0, hematocrit 25.7, platelet count of 97,000. ASSESSMENT: 1. Metastatic lung cancer. 2. CT scan reassuring no metastatic disease. Shows ____ T5-T6 vertebral bodies with approximately 5.9 cm in the ____ neural foramina and extension into intracanal. 3. Dehydration. 4. Acute renal failure, which is resolved. PLAN: The patient already got 3 days off radiation. He will continue radiation to the back. He will be followed as an outpatient. Discussed this with patient. [place], [place] PROGRESS NOTE NAME: SUKHDEV MCDERMOTT UNIT #: [id number] ROOM: [facility] DOCTOR: AFSANEH PHILLIPS MD BIRTHDATE: [birth year] AFSANEH PHILLIPS MD CM:PNTRANS [id number] AFSANEH PHILLIPS MD 04/13/17 0358 interface
--- NOTE | ~2017-04-10 | CON ---
[place], [place] REPORT OF CONSULTATION [id number] UNIT #: [id number] ROOM: [facility] DOCTOR: AFSANEH PHILLIPS MD BIRTHDATE: [birth year] DOS: 04/11/2017 HISTORY OF PRESENT ILLNESS: The patient is a pleasant 71-year-old gentleman with a history of stage IV lung cancer. This really found to have possible metastatic disease to the spine. Subsequently, the question spinal cord compression was sent ____ details of radiation. The daughter called me that he is getting very petite and has been having diarrhea, has been having urinary incontinence and not drinking enough fluids and subsequently was advised to go to the hospital, was admitted and consulted for further evaluation and management of his lung cancer. PAST MEDICAL HISTORY: Significant for stage IV lung cancer, recently had mets to the spine. Question of spinal cord compression, underwent radiation for 3 days history of COPD, epilepsy, stroke, hyperglycemia, hyperlipidemia, osteoporosis, peripheral neuropathy. PAST SURGICAL HISTORY: Right knee surgery as well as cholecystectomy. SOCIAL HISTORY: He smoke 2 packets per day for long time, does not drink any drug or alcohol abuse. FAMILY HISTORY: Mother , age 60. Father , age unknown. ALLERGIES: No known allergies. MEDICATIONS: Lipitor, tamsulosin, mag oxide, aspirin, vitamin D, Fosamax, Neurontin, oxycodone. PHYSICAL EXAMINATION: GENERAL: Pleasant gentleman in no apparent distress. VITAL SIGNS: Blood pressure 110/55, respirations 12, pulse 70, temperature 97.6. HEENT: Oral mucosa appears intact. The external ears are normal in appearance. Nares are patent without lesions, exudates, erythema, or inflammation. Tongue is symmetrical. Uvula is midline. NECK AND THYROID: Neck supple without palpable masses. Trachea is midline. No thyromegaly. No carotid bruit or JVD. BREASTS: Normal. Nipples unremarkable. No drainage. No lumps felt on either side. HEART: Normal S1, S2, without significant murmur, rub, or gallop. LUNGS: Clear to auscultation and percussion with good air entry bilaterally. The patient is breathing easily without the use of accessory muscles. Diaphragmatic excursions are intact. ABDOMEN: No costovertebral angle tenderness. Soft. No organomegaly or masses. Nontender. No hernias present. Liver and spleen are not palpable. LYMPHATIC: No adenopathy noted in the cervical, supraclavicular, axillary, or inguinal regions. NEUROLOGIC: Nonfocal. Oriented to person, place, and time. MENTAL STATUS: Appropriate for mood and affect. PERIPHERAL PULSES: No varicosities. Femoral and pedal pulses are palpable. [place], [place] REPORT OF CONSULTATION NAME: SUKHDEV MCDERMOTT UNIT #: [id number] ROOM: [facility] DOCTOR: AFSANEH PHILLIPS MD BIRTHDATE: [birth year] EXTREMITIES: Without cyanosis, clubbing, or edema. No gross anomalies. LABORATORY DATA: Sodium 143, potassium 3.9, chloride 114, EGFR is more than 60. White count of 8.4, hemoglobin 8.1, hematocrit 26.7, MCV 103.1, platelet count of 100,000. ASSESSMENT: 1. Metastatic lung cancer with mets to the spinal region undergoing radiation. 2. Urinary incontinence has got better. 3. Anemia of neoplastic disorder. 4. Acute kidney injury. PLAN: Chemo is on hold, so as the radiation. Once the overall condition improves, he will continue radiation and follow his counts closely. I discussed with him. We will follow. Thanks for consulting and letting me participate in the care of this interesting patient. AFSANEH PHILLIPS MD CM:CONSTR:REPORT OF CONSULTATION 1453 04/12/17 0137 interface
--- NOTE | ~2017-04-10 | EKG ---
[place], [place] ELECTROCARDIOGRAM REPORT NAME: SUKHDEV MCDERMOTT UNIT #: [id number] ROOM: [facility] DOCTOR: SANTANA HUDSON MD BIRTHDATE: [birth year] DOS: 04/10/2017 TIME: 11:51:03. RATE AND RHYTHM: Normal sinus rhythm at 81 beats per minute. MI interval is 155 milliseconds. QRS duration 72 milliseconds. Corrected QT interval 440 milliseconds. QRS axis is 62. IMPRESSION: Normal EKG. SANTANA HUDSON MD CM:EKGRPT:ELECTROCARDIOGRAM REPORT 1002 1230 SANTANA HUDSON MD
[2017-04-10 11:54] LABS: HEMATOCRIT 27.2 % (42.0-52.0); HEMOGLOBIN 8.5 g/dl (14.0-18.0); MEAN CELL VOLUME 100.4 fl (80.0-94.0); MEAN CORPUSCULAR HGB 31.4 pg (27.0-31.0); MEAN CORPUSCULAR HGB CONC 31.3 g/dl (33.0-37.0); MEAN PLATELET VOLUME 10.1 fl (9.6-12.3); PLATELET COUNT AUTOMATED 124 10*3/uL (130-400); RED BLOOD COUNT 2.71 10*6/uL (4.50-5.90); RED CELL DISTRI WIDTH 17.4 % (0-14.5); WHITE BLOOD COUNT 16.7 10*3/uL (4.8-10.8)
[2017-04-10 12:03] LABS: ACT PARTIAL THROMBO TIME 22.2 SECONDS (20.8-31.5); INTERNATIONAL NORM RATIO 1.2 (2.0-3.5)
[2017-04-10 12:10] LABS: ALBUMIN 2.8 gm/dl (3.1-4.5); CREATININE 3.23 mg/dL (0.70-1.30); POTASSIUM 3.8 mmol/L (3.5-5.1); TOTAL PROTEIN 6.5 gm/dL (6.4-8.2); TROPONIN I 0.02 ng/ml (<0.045)
[2017-04-10 12:13] LABS: PLATELET SUFFICIENCY LOW (NORMAL); TOTAL CELLS COUNTED 100 #CELLS
[2017-04-10 12:14] LABS: OVALOCYTES FEW; POLYCHROMASIA SLIGHT
[2017-04-10] MEDS ORDERED: AGGRENOX 25/2001 EA PO (14:04)
[2017-04-10 14:47] LABS: BILIRUBIN NEGATIVE (NEGATIVE); BLOOD NEGATIVE (NEGATIVE); CLARITY SL CLOUDY (CLEAR); COLOR YELLOW (YELLOW); GLUCOSE NEGATIVE (NEGATIVE); KETONE TRACE (NEGATIVE); LEUKO ESTERASE 1+ (NEGATIVE); NITRITE NEGATIVE (NEGATIVE); PH 5.5 (5.0-9.0); SPECIFIC GRAVITY 1.025 (1.005-1.030); UROBILINOGEN 0.2 E.U./dl (0.2-1.0)
[2017-04-10 15:11] LABS: BACTERIA TRACE; RBC 0-2 rbc/hpf (0-2)
[2017-04-10] MEDS ORDERED: Percocet 325 MG1 TAB PO (15:25)
[2017-04-10] MEDS ORDERED: DECADRON1 MG PO (15:31)
[2017-04-10] MEDS ORDERED: NEXIUM40 MG PO (15:31)
[2017-04-10] MEDS ORDERED: OYSTER SHELL 51 EACH PO (16:06)
[2017-04-11] VITALS: BP 104/49; BP 123/49
[2017-04-11 04:00] VITALS: BP 119/59
[2017-04-11 05:02] LABS: BASO % 0.4 % (0.0-1.0); EOS # 0.1 10*3/uL (0.0-0.4); EOS % 1.2 % (1.0-4.0); HEMATOCRIT 26.7 % (42.0-52.0); HEMOGLOBIN 8.1 g/dl (14.0-18.0); LYMPH # 0.4 10*3/uL (1.3-4.4); LYMPH % 4.7 % (27.0-41.0); MEAN CELL VOLUME 103.1 fl (80.0-94.0); MEAN CORPUSCULAR HGB 31.3 pg (27.0-31.0); MEAN CORPUSCULAR HGB CONC 30.3 g/dl (33.0-37.0); MEAN PLATELET VOLUME 10.2 fl (9.6-12.3); MONO # 0.4 10*3/uL (0.1-1.0); MONO % 5.3 % (3.0-9.0); NEUT # 7.3 10*3/uL (2.3-7.9); NEUT % 87.2 % (47.0-73.0); NUCLEATED RED BLOOD CELL 0.2 % (0.0-0.0); PLATELET COUNT AUTOMATED 100 10*3/uL (130-400); RED BLOOD COUNT 2.59 10*6/uL (4.50-5.90); RED CELL DISTRI WIDTH 17.6 % (0-14.5); WHITE BLOOD COUNT 8.4 10*3/uL (4.8-10.8)
[2017-04-11 05:32] LABS: ALBUMIN 2.5 gm/dl (3.1-4.5); ALKALINE PHOSPHATASE 63 U/L (45-117); BUN 36 mg/dl (7-24); CHLORIDE 114 mmol/L (98-107); CREATININE 1.39 mg/dL (0.70-1.30); POTASSIUM 3.9 mmol/L (3.5-5.1); SGOT/AST 15 IU/L (3-35); SGPT/ALT 12 U/L (12-78); SODIUM 143 mmol/L (136-145); TOTAL PROTEIN 5.7 gm/dL (6.4-8.2)
[2017-04-11 08:00] VITALS: BP 110/55
[2017-04-11 12:00] VITALS: BP 105/46
[2017-04-11 15:55] VITALS: BP 107/49
[2017-04-11 20:00] VITALS: BP 107/56
[2017-04-12] VITALS: BP 94/58
[2017-04-12 04:00] VITALS: BP 142/68
[2017-04-12 04:53] LABS: BASO % 0.3 % (0.0-1.0); EOS # 0.1 10*3/uL (0.0-0.4); EOS % 1.5 % (1.0-4.0); HEMATOCRIT 25.7 % (42.0-52.0); LYMPH # 0.2 10*3/uL (1.3-4.4); LYMPH % 3.2 % (27.0-41.0); MEAN CORPUSCULAR HGB 30.9 pg (27.0-31.0); MEAN CORPUSCULAR HGB CONC 31.1 g/dl (33.0-37.0); MEAN PLATELET VOLUME 9.5 fl (9.6-12.3); MONO # 0.4 10*3/uL (0.1-1.0); MONO % 6.6 % (3.0-9.0); NEUT # 5.7 10*3/uL (2.3-7.9); PLATELET COUNT AUTOMATED 97 10*3/uL (130-400); RED BLOOD COUNT 2.59 10*6/uL (4.50-5.90); RED CELL DISTRI WIDTH 17.3 % (0-14.5); WHITE BLOOD COUNT 6.6 10*3/uL (4.8-10.8)
[2017-04-12 04:59] LABS: MEAN CELL VOLUME 99.2 fl (80.0-94.0)
[2017-04-12 05:10] LABS: ALBUMIN 2.4 gm/dl (3.1-4.5); ALKALINE PHOSPHATASE 61 U/L (45-117); BUN 22 mg/dl (7-24); CHLORIDE 110 mmol/L (98-107); POTASSIUM 3.9 mmol/L (3.5-5.1); SGOT/AST 8 IU/L (3-35); SGPT/ALT 11 U/L (12-78); SODIUM 141 mmol/L (136-145); TOTAL PROTEIN 5.7 gm/dL (6.4-8.2); TROPONIN I < 0.015 ng/ml (<0.045)
[2017-04-12 08:00] VITALS: BP 130/60
[2017-04-12 12:00] VITALS: BP 110/49
== END 2017-04-12 13:30 | disposition home or self-care (01) | DRG 314 ==
LOC: ED 11:28 → ICCU 13:54 → EDHOLD 13:54 → ICCU 13:59 → 4E 04-11 18:34 → ICCU 04-11 18:41
PROVIDERS: Emergency Medicine; Internal Medicine Hematology & Oncology; Internal Medicine Hospice and Palliative Medicine; ADMIT Internal Medicine
DX: I95.89 Other hypotension (principal); N17.0 Acute kidney failure with tubular necrosis; E43 Unspecified severe protein-calorie malnutrition; E87.2 Acidosis; D69.6 Thrombocytopenia, unspecified; C79.49 Secondary malignant neoplasm of other parts of nervous system; E87.8 Other disorders of electrolyte and fluid balance, not elsewhere classified; T66.XXXA Radiation sickness, unspecified, initial encounter; C34.91 Malignant neoplasm of unspecified part of right bronchus or lung; E86.0 Dehydration; M81.0 Age-related osteoporosis without current pathological fracture; F17.210 Nicotine dependence, cigarettes, uncomplicated; J44.9 Chronic obstructive pulmonary disease, unspecified; G89.3 Neoplasm related pain (acute) (chronic); K21.9 Gastro-esophageal reflux disease without esophagitis; D72.829 Elevated white blood cell count, unspecified; D72.810 Lymphocytopenia; I10 Essential (primary) hypertension; N40.1 Benign prostatic hyperplasia with lower urinary tract symptoms; R33.8 Other retention of urine; E78.00 Pure hypercholesterolemia, unspecified; R73.9 Hyperglycemia, unspecified; D53.9 Nutritional anemia, unspecified; D63.0 Anemia in neoplastic disease; E55.9 Vitamin D deficiency, unspecified; G40.909 Epilepsy, unspecified, not intractable, without status epilepticus; Z92.21 Personal history of antineoplastic chemotherapy; Z92.3 Personal history of irradiation; Z91.81 History of falling; Z86.73 Personal history of transient ischemic attack (TIA), and cerebral infarction without residual deficits; Z87.440 Personal history of urinary (tract) infections; Z90.49 Acquired absence of other specified parts of digestive tract; Z79.82 Long term (current) use of aspirin; Z79.899 Other long term (current) drug therapy; Y92.89 Other specified places as the place of occurrence of the external cause; Z68.22 Body mass index [BMI] 22.0-22.9, adult

== ENCOUNTER → 2017-04-24 | Outpatient (CLI) | payer MEDICARE, MEDICAID ==
[~2017-04-24] MED LIST changes: +AGGRENOX 25/2001 EA PO; +DECADRON1 MG PO; +OYSTER SHELL 51 EACH PO; +Percocet 325 MG1 TAB PO
[2017-04-24 13:04] LABS: HEMOGLOBIN 10.6 g/dl (14.0-18.0); MEAN CELL VOLUME 101.2 fl (80.0-94.0); MEAN CORPUSCULAR HGB 32.5 pg (27.0-31.0); MEAN CORPUSCULAR HGB CONC 32.1 g/dl (33.0-37.0); MEAN PLATELET VOLUME 10.1 fl (9.6-12.3); PLATELET COUNT AUTOMATED 69 10*3/uL (130-400); RED BLOOD COUNT 3.26 10*6/uL (4.50-5.90); RED CELL DISTRI WIDTH 18.5 % (0-14.5); WHITE BLOOD COUNT 11.8 10*3/uL (4.8-10.8)
[2017-04-24 13:36] LABS: ALBUMIN 2.9 gm/dl (3.1-4.5); ALKALINE PHOSPHATASE 76 U/L (45-117); BUN 27 mg/dl (7-24); CHLORIDE 101 mmol/L (98-107); POTASSIUM 4.3 mmol/L (3.5-5.1); SGOT/AST 6 IU/L (3-35); SGPT/ALT 16 U/L (12-78); SODIUM 137 mmol/L (136-145); TOTAL PROTEIN 6.7 gm/dL (6.4-8.2)
[2017-04-24 13:37] LABS: TOTAL CELLS COUNTED 100 #CELLS
[2017-04-24 13:38] LABS: OVALOCYTES FEW; PLATELET SUFFICIENCY LOW (NORMAL); POLYCHROMASIA SLIGHT
== END | disposition home or self-care (01) ==
LOC: LAB 12:41
PROVIDERS: Internal Medicine Hematology & Oncology
DX: C34.90 Malignant neoplasm of unspecified part of unspecified bronchus or lung (principal)

== ENCOUNTER → 2017-05-15 | Outpatient (CLI) | payer MEDICARE, MEDICAID ==
[2017-05-15 12:35] LABS: HEMATOCRIT 34.9 % (42.0-52.0); HEMOGLOBIN 11.5 g/dl (14.0-18.0); MEAN CELL VOLUME 100.6 fl (80.0-94.0); MEAN CORPUSCULAR HGB 33.1 pg (27.0-31.0); MEAN PLATELET VOLUME 11.6 fl (9.6-12.3); PLATELET COUNT AUTOMATED 42 10*3/uL (130-400); RED BLOOD COUNT 3.47 10*6/uL (4.50-5.90); RED CELL DISTRI WIDTH 18.4 % (0-14.5); WHITE BLOOD COUNT 4.7 10*3/uL (4.8-10.8)
[2017-05-15 13:09] LABS: OVALOCYTES FEW; PLATELET SUFFICIENCY LOW (NORMAL); POLYCHROMASIA SLIGHT; TOTAL CELLS COUNTED 100 #CELLS
== END | disposition home or self-care (01) ==
LOC: LAB 12:11
PROVIDERS: Internal Medicine Hematology & Oncology
DX: C34.90 Malignant neoplasm of unspecified part of unspecified bronchus or lung (principal)

== ENCOUNTER 2017-05-26 10:33 | Inpatient (IN) | payer MEDICAID ==
[~2017-05-26] VITALS: Ht 187.9 cm; Wt 76.9 kg
--- NOTE | ~2017-05-26 | PROC NOTE ---
[place], [place] PROCEDURE NOTE [id number] #: [id number] ROOM: 532 DOCTOR: YASEMIN ELAM MD BIRTHDATE: [birth year] DOS: 05/28/2017 PREOPERATIVE DIAGNOSIS: Positive blood cultures. POSTOPERATIVE DIAGNOSIS: Positive blood cultures. PROCEDURE: Removal of left chest MediPort. SURGEON: Yasemin Elam MD LABOR SERVICE REPRESENTATIVE: JULIENNE. ANESTHESIA: MAC with local anesthesia. INDICATIONS: This is a 71-year-old male who was being treated for lung cancer with therapy via left chest MediPort, who is here for removal of this MediPort because positive blood cultures The procedure and its complications were explained to the patient in detail preoperatively and he agreed to proceed. DESCRIPTION OF PROCEDURE: After identifying the patient, the patient was brought in the operating suite and laid in the supine position. After IV sedation was administered by the anesthesia team, a timeout procedure was called and the parts were then painted and draped in the usual sterile fashion. The previously made incision was infiltrated with 1% plain lidocaine. The skin incision was made and deep until the MediPort was reached. The suture was cut and the MediPort was removed in its entirety and sent it for histopathological diagnosis. Hemostasis was achieved with the help of electrocautery and with the help of pressure. Thereafter, the subcutaneous tissue was approximated with the help of 2-0 Vicryl in an interrupted fashion and the skin edges were approximated with the help of 4-0 Vicryl in a subcuticular running fashion. A dressing was placed. The patient tolerated the procedure well and was taken to the recovery room in stable fashion. There were no complications. Dr. Yasemin Elam, the attending surgeon, was present throughout the operating case. Yasemin Elam MD CM:PROCNOTE:PROCEDURE NOTE 1430 1724 YASEMIN ELAM MD
--- NOTE | ~2017-05-26 | PR ---
[place], [place] PROGRESS NOTE NAME: SUKHDEV MCDERMOTT UNIT #: [id number] ROOM: 532 DOCTOR: RODRIGO RODAS MD BIRTHDATE: [birth year] DOS: 05/28/2017 SUBJECTIVE: He has been resting comfortably on his bed. Denies any symptoms of chest pain or cough. Denies any sputum expectoration or hemoptysis. OBJECTIVE: VITAL SIGNS: Normal temperature, respiratory rate 20, heart rate 79, blood pressure ____. The pulse oxygen saturation noted as 100% oxygen supplementation. HEAD, EARS, EYES, NOSE AND THROAT: No acute change. NECK: Supple. CARDIOVASCULAR SYSTEM: S1, S2 is audible. LUNGS: The patient was noted without any wheezing or crackle. Breaths are noted mildly decreased bilaterally. ABDOMEN: Soft, nontender. EXTREMITIES: Without any acute edema. IMPRESSION: 1. The patient who has been currently noted with bacteremia with 4/4 bottles. Positive gram-positive cocci in clusters, most likely related to current MediPort. 2. Pancytopenia related to the chemotherapy. 3. The patient with advanced metastatic malignancy of squamous cell, was different parts of the body including spinal canal area. PLAN OF MANAGEMENT: Precaution for this patient ____ walk, to prevent any fall because of recurrent dizziness and other instability. Continuation of the antibiotic. The patient with gram-positive bacteremia or vomiting. Other supportive therapy, plan of management and care. Usual treatment, other supportive plan of therapy. Recommendation for the patient about removal of the MediPort as well. Thanks for allowing me to participate in the care of this patient. [place], [place] PROGRESS NOTE NAME: SUKHDEV MCDERMOTT UNIT #: [id number] ROOM: 532 DOCTOR: RODRIGO RODAS MD BIRTHDATE: [birth year] RODRIGO NUÑEZ MD CM:PNTRANS [id number] RODRIGO LUCIANO MD 05/28/17 1435 interface
--- NOTE | ~2017-05-26 | PR ---
[place], [place] PROGRESS NOTE NAME[facility] [id number] UNIT #: [id number] ROOM: 532 DOCTOR: JOAQUIN LUCIANO MD,RODRIGO BIRTHDATE: [birth year] DOS: 05/31/2017 SUBJECTIVE: He had been comfortably noted at this time, sitting on the chair, eating his breakfast without any acute distress. Oxygen supplementation was given with the nasal cannula. There was no coughing or hemoptysis reported. PHYSICAL EXAMINATION: VITAL SIGNS: Normal temperature, respiratory rate 20, heart rate 80, blood pressure 106/60. The pulse oxygen saturation on room air 99% saturation. HEENT: No new change. CARDIOVASCULAR: S1, S2 audible. LUNGS: The patient was noted with generalized reduction in breath sounds bilaterally. ABDOMEN: Soft, nontender. IMPRESSION: 1. The patient with pancytopenia. The patient related to chemotherapy. 2. Advanced metastatic squamous cell cancer with overall decreased mobility and imbalance with cancer involving the spinal canal as well. PLAN OF MANAGEMENT: Physical therapy and occupation therapy, fci placement would be considered. Continue all other supportive plan of management and care. Usual treatment, other therapies. Additional treatment changes based on the progression of the illness. Continue usual medical management of chronic obstructive pulmonary disease with the medications. RODRIGO NUÑEZ MD CM:NATASHA [id number] RODRIGO LUCIANO MD 05/31/17 1736 interface
--- NOTE | ~2017-05-26 | CON ---
[place], [place] REPORT OF CONSULTATION NAME: SUKHDEV MCDERMOTT [facility] #: [id number] UNIT #: [id number] ROOM: 532 DOCTOR: JOAQUNI LUCIANO MDRODRIGO BIRTHDATE: [birth year] DOS: 05/27/2017 PULMONARY CONSULTATION, EVALUATION AND MANAGEMENT CONSULTATION REQUESTED BY: Dr. Alvarez for assessment of a possibility of side effects related to the current chemotherapy for this patient as a biological agent as Keytruda. REASON FOR CONSULTATION: Assessment of possible side effects related to the lung with the use of Keytruda. HISTORY OF PRESENT ILLNESS: This is a 71-year-old -[place] male. The patient has been known to me with past diagnosis of metastatic squamous cell carcinoma which has been noted PD-L1 positive. The patient had been previously treated with chemotherapy and recently started on Keytruda for the patient's second cycle for the medical management of advanced metastatic squamous cell cancer. The patient has been admitted to the hospital, as the patient passed out at home, complaining of some blurry vision with general weakness and fatigue. He has been noted poor historian. Most of the history has been obtained for the patient is sent to the records obtained from my past review with the medical records and the current documentation and the notes of the other physician, consultations and the nursing note. The patient has been currently comfortably sitting, getting oxygen supplementation nasal cannula. Denies any acute shortness of breath, chest pain, coughing or hemoptysis. The patient denies symptoms of acute chest pain at this time. REVIEW OF SYSTEMS: CONSTITUTIONAL: He was still noted symptoms of fatigue and tiredness, partially improved. There were no symptoms of fever or chills. EYES: Denies any blurred vision at this time, which has been noted previously. Denies diplopia, discharge, redness or tenderness. EARS, NOSE, AND THROAT: Denies sore throat, hoarseness, otalgia, postnasal drainage or epistaxis. CARDIOVASCULAR: Denies anginal pain, edema or pain in the lower extremity. GASTROINTESTINAL: Denies dysphagia, nausea, vomiting, diarrhea, abdominal pain, hematemesis, melena, hematochezia or any further weight loss, which has been noted previously prior to starting the chemotherapy for this patient. SKIN: Denies lesions or rashes. MUSCULOSKELETAL: Acute joint pain, redness, tenderness. GENITOURINARY: Denies dysuria, suprapubic pain or hematuria. CENTRAL NERVOUS SYSTEM: The patient denies any symptoms of seizures. He has been noted with history of intermittent forgetfulness and chronic dizziness as well. Remaining systems were reviewed, they were noted all negative. PAST MEDICAL HISTORY: Known with: 1. COPD/centrilobular emphysema. 2. Moderately differentiated squamous cell carcinoma, advanced with metastatic disease noted to different parts of the body starting from the left paraspinal [place], [place] REPORT OF CONSULTATION NAME: SUKHDEV MCDERMOTT UNIT #: [id number] ROOM: [facility] DOCTOR: JOAQUIN LUCIANO MD,RODRIGO BIRTHDATE: [birth year] mass. 3. Gastroesophageal reflux. 4. Essential hypertension. 5. Hypercholesterolemia. 6. BPH. 7. History of seizures/epilepsy. 8. Gastroesophageal reflux. 9. Osteoporosis. 10. Chronic hypoxic respiratory failure. PAST SURGICAL HISTORY: 1. Arthroscopy. 2. Needle aspiration biopsy of the left paraspinal mass on 05/13/2016, that is established diagnosis of mildly differentiated squamous cell cancer with PD-L1 positive tumor markers. 3. MediPort placement in the left chest. SOCIAL HISTORY: The patient is single, not . He does not have any children. He lives with his sister. Smoking noted from the age of [age] years old, 2.5 pack of cigarettes per day, which has been discontinued by the patient. There was no history of alcohol use, illicit drug use. He used to drink beer previously. FAMILY HISTORY: Mother at the age of 85 from usual complications of old age. Father at the age of 65 from complications related to stroke. MEDICATIONS: The patient's current medications administered were noted as use of Fosamax, vitamin D, calcium carbonate, magnesium oxide, Flomax, Protonix, Keppra, gabapentin, IV Solu-Medrol, Lipitor, vancomycin, cefepime, and other p.r.n. medications administration. DRUG ALLERGIES: Noted for no known drug allergies. PHYSICAL EXAMINATION: GENERAL: This is a 71-year-old -Aust[place] male, currently noted awake and alert, eating his food without any distress. Height of 6 feet 2 inches, weight of 169 pounds, BMI 21.8. VITAL SIGNS: The patient shows a normal temperature, respiratory rate 16-18, heart rate of 75-112, blood pressure 114/55-92/46. Pulse oxygen saturation of the patient noted on room air 100% percent saturation of oxygen. HEENT: Head was atraumatic. Eyes nonicterus. NECK: Supple. CARDIOVASCULAR: S1, S2 is audible. LUNGS: The patient was noted without any crackles, rhonchi, or wheezing. ABDOMEN: Noted flat, soft, nontender. Bowel sounds present. EXTREMITIES: Without any edema. SKIN: Visible skin with no lesions or rashes. MUSCULOSKELETAL: No acute deformities. CENTRAL NERVOUS SYSTEM: Generalized weakness, but there was no gross focal neurologic deficit elicited. Cranial nerves 2-12 intact. [place], [place] REPORT OF CONSULTATION NAME: SUKHDEV MCDERMOTT UNIT #: [id number] ROOM: [facility] DOCTOR: JOAQUIN LUCIANO MD,[facility] BIRTHDATE: [birth year] LABORATORY DATA: PT and PTT of the patient on 05/26/2017 was normal on admission. Lactic acid 2.7 on 05/26/2017, elevated. CMP of the patient on 05/26/2017: BUN 46, creatinine 2.08. Sodium 139. Total protein 6.1, albumin 2.5. AST 59, ALT of 96. The CBC on 05/26/2017: WBC count 3.8, hemoglobin 8.7, hematocrit 27.1, platelet count of 28,000. CT of the head of the patient done in the Emergency Room yesterday on admission reported no acute intracranial abnormalities. Small vessel ischemic changes were described in the brain for this patient. The troponin noted minimally elevated at 0.64-0.51. The INR for the patient this morning was 1.2. CBC this morning, WBC count 2.2, hemoglobin 6.5, hematocrit 20.2, platelet count 21,000. CMP of the patient on 05/27/2017: BUN 34, creatinine was normal, glucose 134. The blood culture of the patient taken in the Emergency Room shows Gram-positive cocci in clusters in both of the sets for this patient, anaerobic. Aerobic cultures were pending. Review of the pertinent radiology data: The chest x-ray of the patient that was done on 05/26/2017 shows small right-sided pleural fluid with a large mass in the right upper lobe as well as infiltration in the left mid lung. The patient had CT scan of the chest that was done previously on 04/12/2017 was reviewed from the PACS images as well, shows a very large mass was noted, 5.9 x 5.4 x 4.5 cm with involvement of the rib of the patient, fifth and sixth vertebral body paraspinal area extending into the neural foramina, T5 and T6 as well as T6 and T7 with involvement of the central canal. Another irregular large mass was noted in the right upper lung 6 x 9 x 5.6 cm extending to the level of the right hilum. Pleural involvement noted with significant destruction of the third, fourth and the fifth ribs. Finding remains unchanged as compared with the past study that was done for this patient, correlated to the previous MRI done on this patient of the spine. IMPRESSION: 1. The patient has been currently admitted to the hospital. The patient noted generalized weakness, fatigue, second Gram-positive cocci bacteremia. The source of infection would be considered the current MediPort as a potential source. Findings of the advanced metastatic malignancy noted as squamous cell for this patient. There was no clinical or radiologic evidence of side effects related to Keytruda would be considered. I am not sure if the patient does have acute pneumonia because the current finding was consistent more of a malignant process, which has been noted on previous CT scan of the chest. However, pneumonia cannot be completely excluded. 2. The patient with severe pancytopenia with progressive anemia as well as thrombocytopenia, most likely side effect chemotherapy. 3. Advanced involvement of the bones including vertebral body central canal of the patient may be resulting in the hypotension and other side effects resulting in the dizziness with the possibility of hypertension and general weakness. 4. Bacteremia for this patient would be considered with acute sepsis. 5. Poor nutritional status. 6. Abnormal liver function test for the patient, most likely related to metastatic malignancy. 7. Acute kidney injury secondary to sepsis as well as prerenal azotemia, seem to be improved markedly with IV hydration in the last 24 hours. [place], [place] REPORT OF CONSULTATION NAME: SUKHDEV MCDERMOTT UNIT #: [id number] ROOM: [facility] DOCTOR: ALIZA RODAS MDULAM BIRTHDATE: [birth year] PLAN OF MANAGEMENT: There will be no need for use of the steroids since the patient has not been expected to have the current side effects related to Keytruda. MediPort extraction strongly considered. Maximize the antibiotic management of the patient with coverage for the Gram-positive organism for bacteremia. Followup of urine culture in the next couple of days would be considered. The bronchodilator for the patient would be continued. Usual care, other supportive therapy, plan of management. Keep up with hydration status as well. Overall prognosis of the patient is noted extremely poor with current advanced malignancy. Supportive plan of management and care. The findings for the patient on the current assessment has been conveyed to the medical attending of this patient and primary care physician, Dr. Jennifer Alvarez. RODRIGO NUÑEZ MD CM:CONSTR:REPORT OF CONSULTATION 1541 05/27/17 1802 interface
--- NOTE | ~2017-05-26 | PR ---
[place], [place] PROGRESS NOTE NAME: SUKHDEV MCDERMOTT [facility] #: [id number] UNIT #: [id number] ROOM: 532 DOCTOR: ROBERT FRANCO MD BIRTHDATE: [birth year] DOS: SUBJECTIVE: The patient has been admitted to the hospital with the possibility of side effect related to the current chemotherapy of Keytruda and he was feeling very weak and short of breath and had thrombocytopenia, COPD, metastatic squamous cell carcinoma with advanced metastases including the bones and the liver, GERD syndrome, hypertension, hypercholesterolemia, BPH, history of seizure disorder, osteoporosis and chronic hypoxia with respiratory failure. The patient has been seen by Dr. Parham, bias machine operator. According to him, this patient is having side effect due to chemotherapy and he is also having septicemia, which can be due to MediPort insertion, so has recommended possible removal of it and also ____ advanced metastatic malignancy. He is having pancytopenia and progressive anemia due to his chemotherapy and advanced malignancy and metastasis in the bone, bacteremia, poor nutrition status ____ possibly to the metastatic disease and acute kidney disease due to sepsis. His ____ and MRSA are negative. His urine culture is negative. His blood culture shows gram-positive cocci. The patient is on vancomycin right now. His comprehensive metabolic profile today showed BUN 26, creatinine 0.91, which has improved, but his chloride is 114, which is better, calcium 7.9, phosphorous 1.6, magnesium is 2.4, total protein is 5.9 and albumin is 2.3. CBC showed white count 3.5, hemoglobin 9.3, hematocrit 28.2 and platelet count is 22,000. Blood pressure is 150/72, pulse 20, respirations 98.3. ROBERT FRANCO MD CM:PNTRANS [id number] ROBERT FRANCO MD 05/29/17 0102 interface
--- NOTE | ~2017-05-26 | CON ---
[place], [place] REPORT OF CONSULTATION NAME: SUKHDEV MCDERMOTT [facility] #: [id number] UNIT #: [id number] ROOM: 532 DOCTOR: AFSANEH PHILLIPS MD BIRTHDATE: [birth year] DOS: 05/26/2017 HISTORY OF PRESENT ILLNESS: The patient is a pleasant 79-year-old gentleman with a history of lung cancer second cycle of (Keytruda PD-L1) who was lying in the bed when he became dizzy, weak, and blurred vision and then said he passed out. He woke up and lost control with bowel and bladder. His family contact emergency services and was brought to the hospital and subsequently was admitted and consulted for further evaluation and management. He got chemotherapy on few days back. He got his immunotherapy a week before. PAST MEDICAL HISTORY: CT of the head showed low attenuation of white matter bilaterally, aged indeterminate. Chest x-ray showed a large right lung mass with small right pleural effusion. There was a possibility of pneumonitis in the left mid lung. Stage IV lung cancer. COPD, elevated C-reactive protein, essential hypertension, GERD, history of epilepsy, stroke, hypercholesterolemia, osteoporosis, peripheral neuropathy, seizure disorder, severe protein-calorie malnutrition, vitamin D deficiency. PAST SURGICAL HISTORY: Right knee surgery, history of cholecystectomy. SOCIAL HISTORY: No smoking, quit smoking 02/27/2017 used to smoke 2 packs per day for many years. No drinking or drug abuse. FAMILY HISTORY: Unknown. Mother 60. ALLERGIES: No allergies. MEDICATIONS: Acetaminophen, Percocet, Fosamax, Aggrenox, Lipitor, vitamin D, Nexium, Neurontin, Zestril, Ultram. REVIEW OF SYSTEMS CONSTITUTIONAL: No chills. No fatigue. No fever. No loss of appetite. No night sweats. No weakness. No weight loss. HEENT: No trouble swallowing. No loss of smell. No loss of hearing. No double vision. No pain. No discharge. ENT AND RESPIRATORY: No wheeze. No sore throat. No change in voice. No hearing loss. No nose bleed. No cough. No trouble breathing through nose. No shortness of breath. No coughing up blood. No epistaxis. CARDIOVASCULAR: No chest pain. No dizziness. No irregular heartbeat. No leg edema. No pain in legs while walking. No palpitations. No shortness of breath. DERMATOLOGIC: No acne. No hives. No laceration. No mole. No rash. ENDOCRINE: No cold intolerance. No diabetes. No fatigue. No hot flashes. No polydipsia. No polyuria. No urinating frequently. No weight loss. HEMATOLOGIC AND LYMPH: No fatigue. No easy bruising. GASTROENTEROLOGIC: No change in bowel habits. No indigestion. No frequent bloating. No vomiting blood. No abdominal cramping. No nausea. No heartburn. No vomiting. No abdominal pain. No dysphagia. No diarrhea. No constipation. No blood in stool. MALE REPRODUCTIVE: No testicular pain. No difficulty with erection. No [place], [place] REPORT OF CONSULTATION NAME: SUKHDEV MCDERMOTT UNIT #: [id number] ROOM: [facility] DOCTOR: AFSANEH PHILLIPS MD BIRTHDATE: [birth year] diminished sexual drive. No penile discharge. MUSCULOSKELETAL: No back pain. No muscle pain or weakness. No neck pain. No tingling/numbness. No swelling/bruising. No osteoporosis treatment. OPTHALMOLOGIC: No double vision. No diminished vision. No loss of vision. UROLOGIC: No dysuria. No frequent nighttime urination. No pain with urination. No difficulty urinating. No blood in urine. No frequent urination. No urinary incontinence. NEUROLOGIC: No loss of sensation in specific body area. No vertigo. No burning pain in feet. No trouble with balance. No trouble with coordination. No loss of consciousness. No loss of feeling/power. No confusion. No headache. No tingling/numbness. PSYCHOLOGIC: No tinnitus. No headaches. No shortness of breath. No weight decrease. No nausea. No vomiting. No abdominal discomfort. No constipation. No diarrhea. No depression. No anxiety. PHYSICAL EXAMINATION: GENERAL: This gentleman in no apparent distress, alert and oriented. VITAL SIGNS: Blood pressure is 120/49, respirations 16, pulse 112, temperature 98.4. HEENT: Oral mucosa appears intact. The external ears are normal in appearance. Nares are patent without lesions, exudates, erythema, or inflammation. Tongue is symmetrical. Uvula is midline. NECK AND THYROID: Neck supple without palpable masses. Trachea is midline. No thyromegaly. No carotid bruit or JVD. BREASTS: Normal. Nipples unremarkable. No drainage. No lumps felt on either side. HEART: Normal S1, S2, without significant murmur, rub, or gallop. LUNGS: Clear to auscultation and percussion with good air entry bilaterally. The patient is breathing easily without the use of accessory muscles. Diaphragmatic excursions are intact. ABDOMEN: No costovertebral angle tenderness. Soft. No organomegaly or masses. Nontender. No hernias present. Liver and spleen are not palpable. LYMPHATIC: No adenopathy noted in the cervical, supraclavicular, axillary, or inguinal regions. NEUROLOGIC: Nonfocal. Oriented to person, place, and time. MENTAL STATUS: Appropriate for mood and affect. PERIPHERAL PULSES: No varicosities. Femoral and pedal pulses are palpable. EXTREMITIES: Without cyanosis, clubbing, or edema. No gross anomalies. LABORATORY DATA: Sodium 139, potassium 4.8, chloride 107, bicarbonate 24, EGFR 32. White count of 3.8, hemoglobin 8.7, hematocrit 27.1, MCV 103.4, platelet count 28,000. ASSESSMENT: 1. Sepsis. 2. Possible pneumonitis. 3. Lung cancer, status post Keytruda a week ago. 4. Pancytopenia, secondary to treatment. PLAN: I discussed with ____ he may be developing pneumonitis which is at [place], [place] REPORT OF CONSULTATION NAME: SUKHDEV MCDERMOTT UNIT #: [id number] ROOM: [facility] DOCTOR: AFSANEH PHILLIPS MD BIRTHDATE: [birth year] 2-3% happens with patients ____ Keytruda. He may need medication for that. In the meantime, hemoglobin and hematocrit drops further, then transfusion. We will keep a close watch at this time. His platelets are low and we will keep a close watch. Ample time was given to the patient to ask questions and we will follow. AFSANEH PHILLIPS MD CM:CONSTR:REPORT OF CONSULTATION 17 05/26/17 141 interface
--- NOTE | ~2017-05-26 | PR ---
[place], [place] PROGRESS NOTE NAME: SUKHDEV MCDERMOTT [facility] #: [id number] UNIT #: [id number] ROOM: 532 DOCTOR: JOAN CLARKE,ROBERT Aden BIRTHDATE: [birth year] DOS: 05/29/2017 The patient has been admitted to the hospital with septicemia, possibly due to infection of his IV port and has been seen by Dr. Fuentes, who is planning to remove this causative source of infection. The patient has severe sepsis, pneumonitis, chemotherapy induced pancytopenia, metabolic encephalopathy, tachycardia, acute renal failure, severe protein-calorie malnutrition, macrocytic anemia, thrombocytopenia, dehydration, generalized weakness and metastatic CA. The patient is feeling better. He is not in any distress. His comprehensive metabolic profile today shows chloride 111, calcium 7.9, total protein 5.9, albumin 2.5. Other values are normal. CBC today showed white count 9500, hemoglobin 28.9, WBC is 4 and platelet count is 18, so showing some improvement. Blood culture did not show any growth and the patient is eating satisfactorily. Blood pressure 118/____, pulse 79, respirations 16, temperature 97.4. ROBERT FRANCO MD CM:PNTRANS [id number] ROBERT FRANCO MD 05/29/17 1322 interface
--- NOTE | ~2017-05-26 | PR ---
[place], [place] PROGRESS NOTE [facility]: [id number] UN[facility] #: [id number] ROOM: 532 DOCTOR: RODRIGO RODAS MD BIRTHDATE: [birth year] DOS: 05/29/2017 SUBJECTIVE: The patient has been noted comfortable at this time without any acute distress. The patient has been noted awake and alert this morning. He had not been noted any ongoing acute respiratory complaints. The MediPort for the patient was removed from the left side of the chest yesterday successfully by the surgeon. OBJECTIVE: VITAL SIGNS: The patient showed normal temperature, respiratory rate 18, heart rate 69, blood pressure 167/85 with pulse oxygen 99% saturation on 100% oxygen. HEENT: Shows no acute change. NECK: Supple. CARDIOVASCULAR: S1, S2 audible. LUNGS: The patient was noted without any wheeze or crackles. ABDOMEN: Soft, nontender. EXTREMITIES: Without any acute edema. LABORATORY DATA: CBC today: WBC count 4.0, hemoglobin 9.5, hematocrit 28.9, platelet count 18,000. The blood culture surveillance 05/27/2017 for the patient 2 sets does not show any abnormal bacterial growths. IMPRESSION: 1. The patient with bacteremia, Staphylococcus epidermidis related to the MediPort. The patient with overwhelming positive cultures seem to be resolving with current antibiotic coverage. 2. The patient with improving leukopenia. 3. Severe thrombocytopenia without any active bleeding. 4. History of very advanced metastatic squamous cell cancer. PLAN OF MANAGEMENT: No changes in the plan of therapy at this time will be made. The patient seems responding to treatment. Continue all supportive plan of therapy and care. [place], [place] PROGRESS NOTE NAME: SUKHDEV MCDERMOTT UNIT #: [id number] ROOM: 532 DOCTOR: RODRIGO RODAS MD BIRTHDATE: [birth year] RODRIGO NUÑEZ MD CM:PNTRANS [phone] RODRIGO LUCIANO MD 05/29/172254 interface
--- NOTE | ~2017-05-26 | PR ---
[place], [place] PROGRESS NOTE [facility]: [id number] UN[facility] #: [id number] ROOM: 532 DOCTOR: JOAQUIN LUCIANO MD,RODRIGO BIRTHDATE: [birth year] DOS: 05/30/2017 PULMONARY PROGRESS NOTE SUBJECTIVE: He has been noted comfortable at this time, resting comfortably on the bed without any acute distress. He has not been noted any symptoms of chest pain or any abdominal pain. He has been sitting on the chair ____ but this time, eating his breakfast. OBJECTIVE: VITAL SIGNS: Normal temperature, respiratory rate 18, heart rate 64, blood pressure ____/83. Pulse oxygen saturation on room air 100% saturation. HEENT: No acute change. NECK: Supple. CARDIOVASCULAR: S1, S2 audible. LUNGS: No wheeze or crackles. ABDOMEN: Soft, nontender. EXTREMITIES: Without edema. LABORATORY DATA: The patient's CBC with WBC 8.8, hemoglobin 9.5, hematocrit 27.9, platelet count of 32,000. CMP for the patient, normal BUN and creatinine. IMPRESSION: 1. Resolving pancytopenia with acute respiratory problem. The patient at the present time as well. 2. Advanced metastatic progressive squamous cell cancer of the lungs to different parts of the body including multiple bony involvement. PLAN OF MANAGEMENT: Continuation of the current therapy. The patient at this time without any changes. Continue all supportive, plan of management and care. Usual treatment, other supportive care and therapies. RODRIGO NUÑEZ MD CM:PNTRANS [phone] RODRIGO LUCIANO MD 05/31/17 0117 interface
--- NOTE | ~2017-05-26 | PR ---
[place], [place] PROGRESS NOTE [id number] UNIT #: [id number] ROOM: 532 DOCTOR: JOAQUIN LUCIANO MD,RODRIGO BIRTHDATE: [birth year] DOS: 06/01/2017 SUBJECTIVE: He has been noted comfortable start getting physical therapy was planned for possible discharge to the assisted facility today. Denies any coughing, sputum expectoration, or chest pain. OBJECTIVE: VITAL SIGNS: Normal temperature, respiratory rate 20, heart rate 74, blood pressure 134/87. Pulse oxygen saturation on room air was 100% saturation. HEENT: Examination shows no acute change. NECK: Supple. CARDIOVASCULAR: S1, S2 audible. LUNGS: Moderate decreased breath sounds without any wheeze or crackle at the present time. ABDOMEN: Soft, nontender. IMPRESSION: 1. Stable respiratory status was noted at the present time. 2. The patient with advanced metastatic cancer. PLAN OF MANAGEMENT: ____ continuation of current plan of therapy and care. Usual treatment, other supportive plan of management. Discharge planning as per primary care physician. RODRIGO NUÑEZ MD CM:PNTRANS [phone] RODRIGO LUCIANO MD 06/01/17 1819 interface
--- NOTE | ~2017-05-26 | PR ---
[place], [place] PROGRESS NOTE NAME: SUKHDEV MCDERMOTT [facility] #: [id number] UNIT #: [id number] ROOM: 532 DOCTOR: AFSANEH PHILLIPS MD BIRTHDATE: [birth year] DOS: 05/27/2017 SUBJECTIVE: The patient is doing better. He is alert. He is a poor historian. He voices no complaint. REVIEW OF SYSTEMS HEENT: No trouble swallowing. No double vision. No loss of vision. No pain. ENT AND RESPIRATORY: No wheeze. No change in voice. No cough. No shortness of breath. No coughing up blood. No epistaxis. CARDIOLOGIC: No chest pain. No dizziness. No irregular heartbeat. No leg edema. No palpitations. No shortness of breath. HEMATOLOGIC AND LYMPH: No past transfusion. No fatigue. No loss of appetite. No easy bruising. GASTROENEROLOGIC: No change in bowel habits. No vomiting blood. No abdominal cramping. No nausea. No vomiting. No diarrhea. No constipation. No blood in stool. MALE REPRODUCTIVE: No testicular pain. No penile discharge. MUSCULOSKELETAL: No back pain. No muscle pain or weakness. No tingling/numbness. UROLOGIC: No pain with urination. No difficulty urinating. No frequent urination. NEUROLOGIC: No burning pain in feet. No trouble with coordination. No loss of consciousness. No headache. No tingling/numbness. No memory loss. PHYSICAL EXAMINATION GENERAL: Pleasant gentleman in no apparent distress. VITAL SIGNS: Blood pressure is 107/57, respirations 16, pulse 66, temperature 97.5. HEENT: Normocephalic, atraumatic NECK AND THYROID: Supple. No JVD, thyromegaly, or lymphadenopathy. HEART: Normal S1, S2. Regular rate and rhythm. LUNGS: Clear to auscultation and percussion. ABDOMEN: Soft. Nontender, nondistended. Bowel sounds present. EXTREMITIES: Normal ROM. No clubbing. No edema. LABORATORY DATA: White count of 2.2, hemoglobin 6.5, hematocrit 20.2, MCV 101.5, platelet count of 21,000. ASSESSMENT: 1. Pancytopenia, probably secondary to Keytruda. 2. Possible pneumonitis secondary to possible treatment with Keytruda. 3. Metastatic lung cancer, stage IV. PLAN: We will transfuse on p.r.n. basis. His hemoglobin and hematocrit drop, he will be getting couple of units of packed RBC. The patient is not bleeding or bruising at this time. We will keep a close watch. If it drops, then transfusion. In the meantime, continue broad spectrum antibiotics, steroids. I had detailed discussion about it, he seemed to understand it. Ample time was given to the patient to ask questions. [place], [place] PROGRESS NOTE NAME: SHARRONSUKHDEV L UNIT #: [id number] ROOM: 532 DOCTOR: AFSANEH PHILLIPS MD BIRTHDATE: [birth year] AFSANEH PHILLIPS MD CM:NATASHA [phone] AFSANEH PHILLIPS MD 05/27/172307 interface
[2017-05-26 10:47] VITALS: BP 120/49
[2017-05-26 12:16] LABS: HEMATOCRIT 27.1 % (42.0-52.0); HEMOGLOBIN 8.7 g/dl (14.0-18.0); MEAN CELL VOLUME 103.4 fl (80.0-94.0); MEAN CORPUSCULAR HGB 33.2 pg (27.0-31.0); MEAN CORPUSCULAR HGB CONC 32.1 g/dl (33.0-37.0); MEAN PLATELET VOLUME 10.1 fl (9.6-12.3); RED BLOOD COUNT 2.62 10*6/uL (4.50-5.90); RED CELL DISTRI WIDTH 19.7 % (0-14.5); WHITE BLOOD COUNT 3.8 10*3/uL (4.8-10.8)
[2017-05-26 12:23] LABS: ACT PARTIAL THROMBO TIME 23.2 SECONDS (20.8-31.5); INTERNATIONAL NORM RATIO 1.1 (2.0-3.5)
[2017-05-26 12:28] LABS: ALBUMIN 2.5 gm/dl (3.1-4.5); CREATININE 2.08 mg/dL (0.70-1.30); POTASSIUM 4.8 mmol/L (3.5-5.1); TOTAL PROTEIN 6.1 gm/dL (6.4-8.2)
[2017-05-26 12:41] LABS: TOTAL CELLS COUNTED 100 #CELLS
[2017-05-26 12:42] LABS: OVALOCYTES FEW; PLATELET SUFFICIENCY LOW (NORMAL)
[2017-05-26 12:44] LABS: PLATELET COUNT AUTOMATED 28 10*3/uL (130-400)
[2017-05-26] MEDS ORDERED: AGGRENOX 25/2001 EA PO (14:02)
[2017-05-26] MEDS ORDERED: DEXAMETHASONE2 MG PO (14:09)
[2017-05-26] MEDS ORDERED: ZESTRIL10 MG PO (14:14)
[2017-05-26] MEDS ORDERED: GOOD NEIGHBOR M25 M1 PO (14:18)
[2017-05-26 15:45] VITALS: BP 120/49
--- NOTE | 2017-05-26 15:45 | NUR ---
A 71 YO MALE, admitted to , under the services of SANTANA Del Rio MD with a diagnosis of ACUTE KIDNEY INJURY/LUNG CANCER/PNEUMONITIS. Chief complaint is HAD SEIZURE LAST NIGHT, FELL, TOO WEAK TO GET BACK UP AND THE THE RR, CONTINUING WEAKNESS TODAY, HIT LEFT HIP AND RIGHT KNEE LAST NIGHT CAUSING PAIN AND BRUISING. Patient arrived via stretcher from ER. Monitor applied. Initial assessment completed. Vital signs taken and recorded. SANTANA DEL RIO MD notified of admission to the unit. Orders received. See assessment for past medical history, medications and allergies. Patient and/or family oriented to unit. [facility]. Clothing/patient valuable form completed. ALICIA HUMPHREYS
[2017-05-26 16:00] VITALS: BP 93/50
--- NOTE | 2017-05-26 16:33 | NUR ---
DR. NUÑEZ NOTIFIED OF CONSULT RE: PNEUMONITIS PST [facility]TRODA CHEMO.
--- NOTE | 2017-05-26 16:42 | NUR ---
PATIENT TO RADIOLOGY BY WHEELCHAIR FOR XRAYS OF BILATERAL HIPS AND RIGHT KNEE.
--- NOTE | 2017-05-26 16:43 | NUR ---
OBTAINED ORDER FROM DR. PHILLIPS TO USE [facility] FOR IV'S/BLOOD DRAWS.
--- NOTE | 2017-05-26 16:46 | NUR ---
DR. PHILLIPS AWARE OF CONSULT AND IN TO SEE PATIENT RE: PLAN OF CARE.
--- NOTE | 2017-05-26 16:49 | NUR ---
DR. MONTERO NOTIFIED OF TROPONIN I RESULT.
--- NOTE | 2017-05-26 16:50 | NUR ---
DR. SEALS'S ANSWERING SERVICE NOTIFIED OF CONSULT RE: ACUTE RENAL FAILURE.
--- NOTE | 2017-05-26 17:11 | NUR ---
MED REC UPDATED/CORRECTED USING INFORMATION PROVIDED BY [facility] AND MOST RECENT CLAIMS HISTORY.
--- NOTE | 2017-05-26 17:30 | NUR ---
PATIENT BACK FROM RADIOLOGY, RESUMING IVF'S/ANTIBIOTICS.
--- NOTE | 2017-05-26 18:28 | NUR ---
DR. FRANCIS NOTIFIED OF CONSULT; REVIEWED LABS/TREATMENTS OBTAINED ORDER FOR URINE CREATININE.
[2017-05-26 18:42] LABS: BILIRUBIN NEGATIVE (NEGATIVE); BLOOD NEGATIVE (NEGATIVE); CLARITY SL CLOUDY (CLEAR); COLOR YELLOW (YELLOW); GLUCOSE NEGATIVE (NEGATIVE); KETONE NEGATIVE (NEGATIVE); LEUKO ESTERASE NEGATIVE (NEGATIVE); NITRITE NEGATIVE (NEGATIVE); PH 6.5 (5.0-9.0)
[2017-05-26 18:50] LABS: BACTERIA 2+; EPITHELIAL CELLS 0-2; RBC 0-2 rbc/hpf (0-2)
[2017-05-26 20:00] VITALS: BP 94/46
--- NOTE | 2017-05-26 20:15 | NUR ---
DR SANTANA HUDSON WAS NOTIFIED OF TROPONIN #1 0.064 AND #[address] HUDSON STATED TO INCREASE THE IV FLUID TO 150CC/HR. CREATNINE 2.08.
--- NOTE | 2017-05-26 20:23 | NUR ---
IV FLUID 0.45%NS INCREASED TO 150ML/HR
--- NOTE | 2017-05-26 22:56 | NUR ---
PATIENT LYING IN BED, AT BEDSIDE. LUNG SOUNDS DIMINISHED WITH EXP. WHEEZES. IV INTACT TO LAC AND HAS MEDIPORT IN LEFT CHEST. IV FLUID RUNNING WITHOUT PROBLEMS. NO EDEMA NOTED. PATIENT WITH TODD SCOTT ON, PLACED SCD'S.
[2017-05-27] VITALS: BP 92/46
--- NOTE | 2017-05-27 06:47 | NUR ---
This nurse was asked to evaluate patients right knee. Patient's right knee has intact scab noted. No treatment needed at this time. No drainage noted. No redness surrounding area at this time.
[2017-05-27 07:36] LABS: MEAN CELL VOLUME 101.5 fl (80.0-94.0); MEAN CORPUSCULAR HGB 32.7 pg (27.0-31.0); MEAN CORPUSCULAR HGB CONC 32.2 g/dl (33.0-37.0); MEAN PLATELET VOLUME 11.9 fl (9.6-12.3); RED BLOOD COUNT 1.99 10*6/uL (4.50-5.90); RED CELL DISTRI WIDTH 19.4 % (0-14.5); WHITE BLOOD COUNT 2.2 10*3/uL (4.8-10.8)
[2017-05-27 07:41] LABS: INTERNATIONAL NORM RATIO 1.2 (2.0-3.5)
--- NOTE | 2017-05-27 07:48 | NUR ---
PHYSICAL THERAPY Nursing screen received. PT orders also receieved. Thank you. Evette Guerra,PT
[2017-05-27 07:58] LABS: ALBUMIN 2.1 gm/dl (3.1-4.5); CHLORIDE 108 mmol/L (98-107); CHOLESTEROL 122 mg/dL (<200); CREATININE 1.03 mg/dL (0.70-1.30); HEMATOCRIT 20.2 % (42.0-52.0); HEMOGLOBIN 6.5 g/dl (14.0-18.0); PHOSPHOROUS 2.4 mg/dL (2.5-4.9); POTASSIUM 4.1 mmol/L (3.5-5.1); SGOT/AST 35 IU/L (3-35); SGPT/ALT 66 U/L (12-78); SODIUM 139 mmol/L (136-145); TOTAL PROTEIN 5.2 gm/dL (6.4-8.2); TRIGLYCERIDES 82 mg/dl (<150); VLDL CHOLESTEROL 16 mg/dL (6-40)
[2017-05-27 08:00] VITALS: BP 107/57
[2017-05-27 08:00] LABS: PLATELET COUNT AUTOMATED 21 10*3/uL (130-400)
--- NOTE | 2017-05-27 08:00 | NUR ---
LICENSING ANALYST VS. SLEEPING. I HAVE ASKED SW TO TALK TO FAMILY ABOUT DC PLAN.
--- NOTE | 2017-05-27 08:02 | NUR ---
CRITICAL LAB VALUE CALLED TO DR. MONTERO.
[2017-05-27 08:04] LABS: ACANTHOCYTES FEW; SCHISTOCYTES FEW; TOTAL CELLS COUNTED 100 #CELLS
[2017-05-27 08:05] LABS: ALKALINE PHOSPHATASE 70 U/L (45-117); HDL CHOLESTEROL 66 mg/dl (40-60); LDL CHOLESTEROL 40 mg/dL (9-159); OVALOCYTES MODERATE; PLATELET SUFFICIENCY LOW (NORMAL); POLYCHROMASIA SLIGHT; THYROID STIM HORMONE (HS) 0.203 uIU/ml (0.358-4.75)
--- NOTE | 2017-05-27 08:05 | NUR ---
SPOKE WITH DR. PHILLIPS IN RE: PLATELETS. NEW ORDERS GIVEN.
[2017-05-27 08:12] LABS: BUN 34 mg/dl (7-24)
--- NOTE | 2017-05-27 08:21 | NUR ---
Nursing screen received and Occupational Therapy referral received. Thank you for this referral. Teressa Walls OTR/L
[2017-05-27 08:45] LABS: VITAMIN D, 25-HYDROXY 43.2 ng/mL (30-100)
--- NOTE | 2017-05-27 09:46 | NUR ---
PHYSICAL THERAPY PAtient evaluated on 5, full evaluation to follow. Continue with PT as per plan o fcare with fall, advanced lung cancer and acute debility precautions. PAtient is high complexity via chart review, tests and evaluation: 24594. May require SNF for impaired mobility. Thank you for this referral. Evette Guerra,PT
--- NOTE | 2017-05-27 09:50 | NUR ---
SPOKE WITH DR. PHILLIPS IN RE: PACKED CELLS. NEW ORDERS GIVEN.
--- NOTE | 2017-05-27 10:06 | NUR ---
Occupational Therapy evaluation completed on 5 with full eval to follow. Precautions include fall risk, acute debility, advanced lung cancer, IV UE, high complexity level 74238. Recommend OT per POC and SNF upon d/c to enable return home alone [facility]. Thank you for this referral. Teressa Walls OTR/L
--- NOTE | 2017-05-27 11:26 | NUR ---
NOTIFIED DR. CASTLE'S ANSWERING SERVICE OF CONSULT.
[2017-05-27 12:00] VITALS: BP 114/55
[2017-05-27 16:00] VITALS: BP 118/61
--- NOTE | 2017-05-27 16:00 | NUR ---
NOTIFIED DR. ELAM OF CONSULT.
--- NOTE | 2017-05-27 19:58 | NUR ---
ASSUMED CARE OF PT. PT ASSESSED AND PLAN OF CARE IMPLIMENTED.
[2017-05-27 20:00] VITALS: BP 122/64
[2017-05-28] VITALS (10 sets, daily range): BP systolic 120–150; BP diastolic 56–78
--- NOTE | 2017-05-28 07:20 | NUR ---
2CD UNIT PRBC'S STARTED. PT STABLE. WILL CONTINUE TO MONITOR.
--- NOTE | 2017-05-28 08:34 | NUR ---
BLOOD INFUSING WITHOUT DIFFICULTY. PT REMAINS STABLE. CALL LIGHT WITHIN REACH. WILL CONTINUE TO MONITOR.
--- NOTE | 2017-05-28 08:45 | NUR ---
TRANSFUSION COMPLETE. PT STABLE. CALL LIGHT IN REACH. WILL MONITOR.
[2017-05-28 09:46] LABS: HEMATOCRIT 28.2 % (42.0-52.0); HEMOGLOBIN 9.3 g/dl (14.0-18.0); MEAN PLATELET VOLUME 11.7 fl (9.6-12.3); NUCLEATED RED BLOOD CELL 0.6 % (0.0-0.0); RED CELL DISTRI WIDTH 20.2 % (0-14.5); WHITE BLOOD COUNT 3.5 10*3/uL (4.8-10.8)
--- NOTE | 2017-05-28 10:00 | NUR ---
PO AM MEDS HELD PER NPO ORDER.
[2017-05-28 10:03] LABS: ALBUMIN 2.3 gm/dl (3.1-4.5); ALKALINE PHOSPHATASE 73 U/L (45-117); BUN 26 mg/dl (7-24); CHLORIDE 114 mmol/L (98-107); CREATININE 0.91 mg/dL (0.70-1.30); PHOSPHOROUS 1.6 mg/dL (2.5-4.9); POTASSIUM 4.7 mmol/L (3.5-5.1); SGOT/AST 23 IU/L (3-35); SGPT/ALT 53 U/L (12-78); SODIUM 141 mmol/L (136-145); TOTAL PROTEIN 5.9 gm/dL (6.4-8.2)
--- NOTE | 2017-05-28 10:03 | NUR ---
NOTIFIED DR. HUDSON OF CRITICAL LAB VALUE.
[2017-05-28 10:05] LABS: PLATELET SUFFICIENCY LOW (NORMAL); TOTAL CELLS COUNTED 100 #CELLS
[2017-05-28 10:06] LABS: ACANTHOCYTES FEW; POLYCHROMASIA SLIGHT
--- NOTE | 2017-05-28 10:06 | NUR ---
NOTIFIED DR. PHILLIPS OF CRITICAL PLATELET COUNT, PER HIM WE DO NOT NEED TO NOTIFY HIM OF LAB VALUE, STANDING ORDER WAS PLACED 05/27/16.
[2017-05-28 10:08] LABS: OVALOCYTES MODERATE; VACUOLATION OF NEUTROPHILS SLIGHT
[2017-05-28 10:10] LABS: PLATELET COUNT AUTOMATED 22 10*3/uL (130-400)
--- NOTE | 2017-05-28 13:30 | NUR ---
PT OFF FLOOR TO SURGERY.
[2017-05-29] VITALS (10 sets, daily range): BP systolic 118–172; BP diastolic 56–87
--- NOTE | 2017-05-29 04:37 | NUR ---
PT IS RESTING IN BED. RESPIRATIONS ARE EASY AND REGULAR. NO DISTRESS NOTED. PT AROUSES EASILY. NO NEEDS OR COMPLAINTS AT THIS TIME. CALL LIGHT WITHIN REACH.
[2017-05-29 07:25] LABS: HEMATOCRIT 28.9 % (42.0-52.0); HEMOGLOBIN 9.5 g/dl (14.0-18.0); MEAN CELL VOLUME 94.1 fl (80.0-94.0); MEAN CORPUSCULAR HGB 30.9 pg (27.0-31.0); MEAN CORPUSCULAR HGB CONC 32.9 g/dl (33.0-37.0); MEAN PLATELET VOLUME 9.2 fl (9.6-12.3); RED BLOOD COUNT 3.07 10*6/uL (4.50-5.90); RED CELL DISTRI WIDTH 21.7 % (0-14.5)
[2017-05-29 07:37] LABS: PLATELET COUNT AUTOMATED 18 10*3/uL (130-400)
--- NOTE | 2017-05-29 07:41 | NUR ---
NOTIFIED DR LANGSTON OF PLTS OF 18. ADVISED ME TO FOLLOW STANDING ORDERS.
[2017-05-29 07:51] LABS: ALBUMIN 2.5 gm/dl (3.1-4.5); BUN 22 mg/dl (7-24); CHLORIDE 111 mmol/L (98-107); POTASSIUM 4.6 mmol/L (3.5-5.1); SODIUM 141 mmol/L (136-145)
[2017-05-29 07:55] LABS: ALKALINE PHOSPHATASE 76 U/L (45-117); CREATININE 0.87 mg/dL (0.70-1.30); SGOT/AST 19 IU/L (3-35); SGPT/ALT 48 U/L (12-78); TOTAL PROTEIN 5.9 gm/dL (6.4-8.2)
--- NOTE | 2017-05-29 07:56 | NUR ---
NOTIFIED DR Raz CASTLE[facility]S ANSWERING SERVICE OF CRITICAL BC+ FOR BROWN BRADSHAW. AWAITING CALL BACK.
[2017-05-29 08:01] LABS: PLATELET SUFFICIENCY LOW (NORMAL); TOTAL CELLS COUNTED 100 #CELLS
--- NOTE | 2017-05-29 08:45 | NUR ---
Informed consent obtained from patient for PLATELET transfussion by Dr. LANGSTON. Patient identified by arm band. Vital signs recorded. Platelet unit number verified by 2 R.N.'s. I.V. site satisfactory. Unit started at a KVO rate with Normal Saline. JIM SANTO
--- NOTE | 2017-05-29 10:02 | NUR ---
PLATELET TRANSFUSION COMPLETE.PT TOLERATED WELL. NO S/S TRANSFUSION RXN. NO OTHER COMPLAINTS.
[2017-05-30] VITALS: BP 172/87
--- NOTE | 2017-05-30 03:33 | NUR ---
Multiple attempts to start IV, by multiple nurses. IV in Rarm completed at 0145, tolerated well. Denies pain. Resp easy and regular. Will continue to monitor.
[2017-05-30 08:00] VITALS: BP 171/83
[2017-05-30 08:30] LABS: HEMATOCRIT 27.9 % (42.0-52.0); HEMOGLOBIN 9.5 g/dl (14.0-18.0); MEAN CORPUSCULAR HGB 31.7 pg (27.0-31.0); MEAN CORPUSCULAR HGB CONC 34.1 g/dl (33.0-37.0); MEAN PLATELET VOLUME 11.4 fl (9.6-12.3); NUCLEATED RED BLOOD CELL 0.1 10*3/uL (0.0-0.0); NUCLEATED RED BLOOD CELL 1.6 % (0.0-0.0); RED CELL DISTRI WIDTH 20.7 % (0-14.5); WHITE BLOOD COUNT 3.8 10*3/uL (4.8-10.8)
[2017-05-30 08:31] LABS: PLATELET COUNT AUTOMATED 32 10*3/uL (130-400)
[2017-05-30 08:43] LABS: ALBUMIN 2.4 gm/dl (3.1-4.5); ALKALINE PHOSPHATASE 73 U/L (45-117); BUN 20 mg/dl (7-24); CHLORIDE 108 mmol/L (98-107); CREATININE 0.91 mg/dL (0.70-1.30); POTASSIUM 4.3 mmol/L (3.5-5.1); SGOT/AST 51 IU/L (3-35); SGPT/ALT 62 U/L (12-78); SODIUM 139 mmol/L (136-145); TOTAL PROTEIN 5.8 gm/dL (6.4-8.2)
--- NOTE | 2017-05-30 09:00 | NUR ---
PT RESTING IN BED. NO DISTRESS NOTED. NO VOICED C/O. WILL MONITOR
[2017-05-30 09:28] LABS: OVALOCYTES FEW; PLATELET SUFFICIENCY LOW (NORMAL); POLYCHROMASIA SLIGHT; TOTAL CELLS COUNTED 100 #CELLS
--- NOTE | 2017-05-30 11:18 | NUR ---
PHYSICAL THERAPY Patient performed transfers with SBA. Patient performed gait with standard walker for 15' x 1 with Close Supervision. Patient performed LE ther ex in seated position x 10 reps each in all planes of movement. Patient left in seated position with call light within reach. LATISHA YEUNG STATION EXAMINER
--- NOTE | 2017-05-30 12:06 | NUR ---
PATIENT SEEN 1:1 OT 30 MINUTES THIS DATE. PATIENT IDENTIFIED BY NAME AND DATE OF . PATIENT SEATED EOB WITH IV UPON ARRIVAL. PATIENT COMPLETED BUE STR USE 1# WRIST WT' ALL PLANES X 15 REPS SEATED WITH MOD VERBAL CUES TECHNIQUE AND FORM. PATIENT COMPLETED STANDING TOLERANCE ACTIVITY USE WALKER SUPPORT 5 MINUTES X 1 AND 3 MINUTES X 2 WITH C/O WEAKNESS R KNEE AND ANKLE. PATIENT EDUCATED ENERGY CONSERVATION TECHNIQUES THIS DATE FOR OVERALL INCREASE ACTIVITY TOLERANCE AND INDEPENDENCE WITH FUNCTIONAL TASKS. PATIENT REQUIRED VERBAL CUES SAFETY SIT TO STAND FROM BED PROPER HAND PLACEMENT CGA X 3 SECONDARY PATIENT ATTEMPTING TO PULL SELF UP USE FWW. PATIENT SEATED EOB WITH CALL LIGHT IN PLACE. CARMENZA PUENTES/Parth
--- NOTE | 2017-05-30 14:00 | NUR ---
PT RESTING IN BED. NO DISTRESS NOTED. WILL MONITOR
[2017-05-30 16:00] VITALS: BP 152/82
--- NOTE | 2017-05-30 17:10 | NUR ---
DR MONTERO NOTIFIED OF PT ELEVATED BP'S ORDER RECIEVED.
[2017-05-30 20:00] VITALS: BP 142/62
--- NOTE | 2017-05-30 20:00 | NUR ---
PATIENT FOUND AMBULATING ABOUT ROOM, GAIT UNSTEADY. ASSISTED TO BED. RESPIRATIONS EASY. LUNGS DIMINISHED WITH I&E WHEEZES R>L. PULSE OX 100% RA. IV FLUIDS INFUSING VIA RIGHT ARM PICC, SITE ASYMPTOMATIC. CALL LIGHT WITHIN REACH. BED ALARM APPLIED FOR SAFETY
--- NOTE | 2017-05-30 23:00 | NUR ---
SLEEPING. NO DISTRESS NOTED. RESPIRATIONS EASY. VSS. CALL LIGHT WITHIN REACH. BED ALARM MAINTAINED
[2017-05-31] VITALS (10 sets, daily range): BP systolic 100–129; BP diastolic 46–81
--- NOTE | 2017-05-31 06:00 | NUR ---
SLEPT THROUGHOUT NIGHT WITH NO DISTRESS NOTED. RESPIRATIONS EASY. IV FLUIDS MAINTAINED. CALL LIGHT [place]IN REACH. BED ALARM MAINTAINED FOR SAFETY
[2017-05-31 07:14] LABS: HEMATOCRIT 27.8 % (42.0-52.0); HEMOGLOBIN 9.3 g/dl (14.0-18.0); MEAN CORPUSCULAR HGB 31.1 pg (27.0-31.0); MEAN CORPUSCULAR HGB CONC 33.5 g/dl (33.0-37.0); MEAN PLATELET VOLUME 7.9 fl (9.6-12.3); NUCLEATED RED BLOOD CELL 0.1 10*3/uL (0.0-0.0); NUCLEATED RED BLOOD CELL 1.7 % (0.0-0.0); RED BLOOD COUNT 2.99 10*6/uL (4.50-5.90); RED CELL DISTRI WIDTH 20.5 % (0-14.5)
[2017-05-31 07:20] LABS: PLATELET COUNT AUTOMATED 10 10*3/uL (130-400)
[2017-05-31 07:34] LABS: CHLORIDE 105 mmol/L (98-107); POTASSIUM 4.2 mmol/L (3.5-5.1); SODIUM 141 mmol/L (136-145)
[2017-05-31 07:35] LABS: PLATELET SUFFICIENCY LOW (NORMAL); POLYCHROMASIA SLIGHT; TOTAL CELLS COUNTED 100 #CELLS
[2017-05-31 07:42] LABS: BUN 22 mg/dl (7-24); CREATININE 1.05 mg/dL (0.70-1.30)
--- NOTE | 2017-05-31 08:10 | NUR ---
DETAILED MESSAGE LEFT ON DR PHILLIPS VOICEMAIL REGARDING LOW PLTS
--- NOTE | 2017-05-31 08:20 | NUR ---
CARLA SPOKE WITH SISTER JETT. CARLA EXPLAINED THE NEED FOR IV ANTIBIOTICS AND THERPAY UPON DISCHARGE. JETT AGREED TO SNF. JETT WANTS TO TRY [facility] FIRST, [facility] AND [facility].
--- NOTE | 2017-05-31 08:30 | NUR ---
PHYSICAL THERAPY Patient presented to therapy in supine position with report of being tired and fatigued. Patient transfered supine to sitting at EOB with Supervision. Patient transfered sit to stand with CGA X 1. Patient performed gait with W/W and Min A X 1 for 30' x 1 with continuous verbal cues for advancement of walker, lifting walker, leaning forward, and step length. Patient was very fatigued and seemed weaker than usual. Patient also complains of abdominal pain. Patient was left in seated position with LEs raised and call light within reach. Very rough therapy session and patient demonstrated decreased endurance also. LATISHA YEUNG ENDLESS BED DRUM SANDER
--- NOTE | 2017-05-31 08:54 | NUR ---
SPOKE WITH DR PHILLIPS REGARDING LAB RESULTS NEW ORDERS RECIEVED
--- NOTE | 2017-05-31 11:30 | NUR ---
DR HUDSON AND DR MONTERO HERE AND NOTIFIED OF PT HAVING PLTS THIS AM
--- NOTE | 2017-05-31 12:29 | NUR ---
PATIENT SEEN 1:1 OT THIS DATE. PATIENT IDENTIFIED BY NAME AND DATE OF . PATIENT SEATED IN RECLINER. PATIENT COMPLETED BUE AROM ALL PLANES 2 SETS X 15 REPS SEATED WITH MOD VERBAL CUES TECHNIQUE AND FORM MODERATE REST BREAKS. COMPLETED SIT TO STAND FORM RECLINER CGA WITH VERBAL CUES PROPER HAND PLACEMENT. COMPLETED STANDING TOLERANCE APPROX 3 MINUTES THIS DATE USE FWW SUPPORT AND FAIR BALANCE WITH C/O WEAKNESS B LE. PATIENT SEATED IN RECLINER WITH CALL LIGHT IN PLACE. CARMENZA WINTERS
[2017-05-31] MEDS ORDERED: Percocet 325 MG1 TAB PO (12:48)
[2017-05-31] MEDS ORDERED: TRAMADOL HCL50 MG PO (12:48)
--- NOTE | 2017-05-31 14:22 | NUR ---
SW FAXED ADDITONAL INFORMATION TO [facility] ABOUT WHY ISOLATION AND DISCHARGE MED LIST.
--- NOTE | 2017-05-31 14:23 | NUR ---
CARLA SPOKE WITH SISTER JETT BALDWINE. JETT WANTED TO KNOW IF CHEMO COULD BE DONE AND IF FACILITY WOULD PROVIDE TRANSPORATION. CARLA WILL CHECK. DRS TOLD JETT THAT A SKILLED FACILITY WOULD PROVIDE TRANSPORTATION. NEXT CHEMO IS AT 10AM.
--- NOTE | 2017-05-31 14:25 | NUR ---
SW NOTIFIED [facility] PERES. ANALIA STATED THAT IF IT WAS ONCE A WEEK FACILITY COULD DO BUT NOT 5 DAYS.
--- NOTE | 2017-05-31 14:26 | NUR ---
CARLA CALLED DR. PHILLIPS'S OFFICE. SPOKE WITH NURSE. PT HAS HAD 2 YCLES F NEW CHEMO. PT CAN NOT RECEIVE NEW CHEMO IF PT IS SKILLED AT FACILITY. PT GETS CHEMO EVERY 3 WEEKS. PT IS ALSO TO GET RADIATION BUT NURSE DOES NOT KNOW IF PT STARTED THAT. NEXT TX IS RD AT 10AM.
--- NOTE | 2017-05-31 14:37 | NUR ---
PHYSICAL THERAPY Patient was sitting up in bedside recliner chair upon therapist arrival for pm treatment and reports no new c/o's at this time, with continuous IV. Patient performed seated, B LE therex, all planes x 15 reps each to increase strength and required v/c to improve full AROM. Patient also completed multiple sit to stand transfers, CGA x 1, tolerating approx 2 minutes standing tolerance x 3 trials with use of w/w support to improve standing posture. Patient returned to bedside chair and remained with tray table, call light and body alarm for safety. Will continue per POC to improve safe, functional mobility as tolerated. Total treatment time 24 minutes. Casey Serrano, THERAPEUTIC RECREATION ASSISTANT
--- NOTE | 2017-05-31 16:03 | NUR ---
SW RECEIVED NOTICE THAT PT WA ACCEPTED AT [facility] BUT NEEDS A LEVEL OF CARE DUE TO NOT HAVING MEDICARE PART A.
--- NOTE | 2017-05-31 16:03 | NUR ---
SW COMPLETED PASRR IN [facility]. SW COMPLETED AND SUBMITED LOC FOR PROCESSING WITH [facility]. WAITING FOR RESULTS SO PT CAN BE TRANSFERRED.
[2017-05-31 16:39] LABS: HEMATOCRIT 26.8 % (42.0-52.0); MEAN CORPUSCULAR HGB 31.9 pg (27.0-31.0); MEAN CORPUSCULAR HGB CONC 33.6 g/dl (33.0-37.0); MEAN PLATELET VOLUME 12.4 fl (9.6-12.3); NUCLEATED RED BLOOD CELL 0.1 10*3/uL (0.0-0.0); NUCLEATED RED BLOOD CELL 1.5 % (0.0-0.0); RED BLOOD COUNT 2.82 10*6/uL (4.50-5.90); RED CELL DISTRI WIDTH 20.4 % (0-14.5); WHITE BLOOD COUNT 4.8 10*3/uL (4.8-10.8)
[2017-05-31 16:42] LABS: PLATELET COUNT AUTOMATED 53 10*3/uL (130-400)
[2017-05-31 17:07] LABS: TOTAL CELLS COUNTED 100 #CELLS
[2017-05-31 17:08] LABS: PLATELET SUFFICIENCY LOW (NORMAL); POLYCHROMASIA SLIGHT; TOXIC GRANULATION SLIGHT
--- NOTE | 2017-05-31 18:04 | NUR ---
NOTIFIED DR MONTERO THAT PT CAN NOT GO TO [facility] TONIGHT. (PER SW NOTES) ALSO NOTIFIED DR MONTERO OF PLT COUNT NOW OF 53.
--- NOTE | 2017-05-31 22:07 | NUR ---
BLOOD CULTURES CAME BACK GRAM (+) COCCI IN [place]. DR TELLES NOTIFIED AND PUT IN ORDERS FOR A REPEAT BLOOD CULTURES.
[2017-06-01] VITALS: BP 100/52
[2017-06-01 06:30] LABS: BUN 24 mg/dl (7-24); CHLORIDE 106 mmol/L (98-107); CREATININE 0.91 mg/dL (0.70-1.30); POTASSIUM 4.7 mmol/L (3.5-5.1); SODIUM 141 mmol/L (136-145)
[2017-06-01 06:36] LABS: HEMATOCRIT 26.8 % (42.0-52.0); HEMOGLOBIN 8.8 g/dl (14.0-18.0); MEAN CORPUSCULAR HGB 31.2 pg (27.0-31.0); MEAN CORPUSCULAR HGB CONC 32.8 g/dl (33.0-37.0); MEAN PLATELET VOLUME 11.8 fl (9.6-12.3); NUCLEATED RED BLOOD CELL 0.1 10*3/uL (0.0-0.0); NUCLEATED RED BLOOD CELL 1.1 % (0.0-0.0); PLATELET COUNT AUTOMATED 40 10*3/uL (130-400); RED BLOOD COUNT 2.82 10*6/uL (4.50-5.90); RED CELL DISTRI WIDTH 20.6 % (0-14.5); WHITE BLOOD COUNT 6.6 10*3/uL (4.8-10.8)
[2017-06-01 07:08] LABS: PLATELET SUFFICIENCY LOW (NORMAL); POLYCHROMASIA SLIGHT; TOTAL CELLS COUNTED 100 #CELLS
--- NOTE | 2017-06-01 07:47 | NUR ---
OCCUPATIONAL THERAPY CO-SIGN I approve of the Occupational Therapy notes written above. PURNIMA TREVINO OTR/Parth
[2017-06-01 07:52] VITALS: BP 134/87
--- NOTE | 2017-06-01 08:21 | NUR ---
GONZÁLEZ RECEIVED FROM [facility] REQUESTING PASRR 2ND PAGE BE FAXED DUE TO IT NOT COMING THROUGH. SW FAXED PASRR AGAIN.
--- NOTE | 2017-06-01 08:22 | NUR ---
LARISA HELMS INQUIRED IF PT WAS COMING TO FACILITY TODAY. WHEN LOC RESULTS ARE BACK. ANALIA HAS COPY SW AYAD SET UP TRANSPORTATION. LOC RESULTS ON FAX MACHINE.
--- NOTE | 2017-06-01 08:23 | NUR ---
SW NOTIFIED MICHAEL IN HOSPITALIST OFFICE THAT LOC WAS BACK AND PT COULD GO TODAY.
--- NOTE | 2017-06-01 08:23 | NUR ---
CARLA SPOKE WITH ANALIA PERES. ANALIA REQUESTED PT COME AROUND 11AM. CARLA CONTACTED NURSE TO MAKE SURE 11AM WAS OK. NURSE SAID YES.
--- NOTE | 2017-06-01 08:28 | NUR ---
SW ARRANGED TRANSPORTATION WITH [facility] FOR 11AM CANDLE MOLDER HAND TO BE DISCHARGED TO [facility].
--- NOTE | 2017-06-01 08:30 | NUR ---
SW NOTIFIED SCISSORS GRINDER THAT PT WILL BE GOING BY [facility] TO [facility] WITH BUSINESS CONTROLLER AROUND 11AM.
--- NOTE | 2017-06-01 08:33 | NUR ---
CARLA NOTIFIED SISTER JETT NOVOA THAT PT WAS BEING PICKED UP AT 11AM TO GO TO [facility].
--- NOTE | 2017-06-01 09:11 | NUR ---
patient refused dc pictures and stated that admission pictures took to long.
--- NOTE | 2017-06-01 09:32 | NUR ---
PHYSICAL THERAPY Patient presented to therapy in supine position with no concerns. Patient says he is feeling much better. Patient performed supine to sitting at EOB and Sit to Stand transfers with SBA. Patient transfered to bedside chair with with CGA X 1. Patient performed seated ther ex in chair x 20 reps to Bilateral LEs in all planes of movement. Patient was left in seated position with call light within reach, body alarm attached, and LEs raised. LATISHA YEUNG PARKING METER COLLECTOR
--- NOTE | 2017-06-01 11:12 | NUR ---
Discharge instructions reviewed with patient/family. Patient receptive and verbalizes understanding. Follow-up care arranged. Written instructions given to patient/family. FELICE BASS
[2017-06-04] MEDS ORDERED: VITAMIN D35000 UNIT PO (10:17)
[2017-06-04] MEDS ORDERED: ASPIRIN ADULT L81 M1 PO (10:18)
[2017-06-04] MEDS ORDERED: GLYCOLAX119 GM PO (10:20)
[2017-06-04] MEDS ORDERED: NEUPOGEN480 MCG/0. IJ (10:21)
[2017-06-04] MEDS ORDERED: CEFAZOLIN1 G1 IV (10:23)
== END 2017-06-01 11:12 | disposition other institution (70) | DRG 314 ==
LOC: ED 10:33 → EDHOLD 12:52 → 5E 12:52
PROVIDERS: Emergency Medicine; Hospitalist; Surgery; ADMIT Internal Medicine
PROC: 30233N1 Transfusion of Nonautologous Red Blood Cells into Peripheral Vein, Percutaneous Approach (ICD-10-PCS; 2017-05-28)
PROC: 0JPT0WZ Removal of Totally Implantable Vascular Access Device from Trunk Subcutaneous Tissue and Fascia, Open Approach (ICD-10-PCS; 2017-05-28)
PROC: 05PY33Z Removal of Infusion Device from Upper Vein, Percutaneous Approach (ICD-10-PCS; 2017-05-28)
PROC: 30233R1 Transfusion of Nonautologous Platelets into Peripheral Vein, Percutaneous Approach (ICD-10-PCS; 2017-05-29)
PROC: 02H633Z Insertion of Infusion Device into Right Atrium, Percutaneous Approach (ICD-10-PCS; principal; 2017-05-30)
DX: T82.7XXA Infection and inflammatory reaction due to other cardiac and vascular devices, implants and grafts, initial encounter (principal); D61.810 Antineoplastic chemotherapy induced pancytopenia; N17.0 Acute kidney failure with tubular necrosis; A41.1 Sepsis due to other specified staphylococcus; E43 Unspecified severe protein-calorie malnutrition; G93.41 Metabolic encephalopathy; J18.9 Pneumonia, unspecified organism; J96.11 Chronic respiratory failure with hypoxia; R65.20 Severe sepsis without septic shock; C78.7 Secondary malignant neoplasm of liver and intrahepatic bile duct; C79.51 Secondary malignant neoplasm of bone; E87.2 Acidosis; C34.10 Malignant neoplasm of upper lobe, unspecified bronchus or lung; E83.41 Hypermagnesemia; D64.81 Anemia due to antineoplastic chemotherapy; D53.9 Nutritional anemia, unspecified; E86.0 Dehydration; J98.4 Other disorders of lung; T45.1X5A Adverse effect of antineoplastic and immunosuppressive drugs, initial encounter; G89.3 Neoplasm related pain (acute) (chronic); R74.0 Nonspecific elevation of levels of transaminase and lactic acid dehydrogenase [LDH]; M81.0 Age-related osteoporosis without current pathological fracture; R79.89 Other specified abnormal findings of blood chemistry; G62.9 Polyneuropathy, unspecified; J44.9 Chronic obstructive pulmonary disease, unspecified; K21.9 Gastro-esophageal reflux disease without esophagitis; I10 Essential (primary) hypertension; N40.1 Benign prostatic hyperplasia with lower urinary tract symptoms; E83.39 Other disorders of phosphorus metabolism; Y83.8 Other surgical procedures as the cause of abnormal reaction of the patient, or of later complication, without mention of misadventure at the time of the procedure; B96.89 Other specified bacterial agents as the cause of diseases classified elsewhere; W18.39XA Other fall on same level, initial encounter; S70.02XA Contusion of left hip, initial encounter; S80.01XA Contusion of right knee, initial encounter; E78.00 Pure hypercholesterolemia, unspecified; G40.909 Epilepsy, unspecified, not intractable, without status epilepticus; Z86.73 Personal history of transient ischemic attack (TIA), and cerebral infarction without residual deficits; Y92.89 Other specified places as the place of occurrence of the external cause; Z79.899 Other long term (current) drug therapy; Z79.82 Long term (current) use of aspirin; Z90.49 Acquired absence of other specified parts of digestive tract; Z87.891 Personal history of nicotine dependence; Y93.89 Activity, other specified; Y99.8 Other external cause status; Z82.3 Family history of stroke; Z68.21 Body mass index [BMI] 21.0-21.9, adult

== ENCOUNTER 2017-07-01 13:13 | Inpatient (IN) | payer MEDICARE, MEDICAID ==
[2017-07-01] VITALS (12 sets, daily range): BP systolic 80–126; BP diastolic 48–60
[~2017-07-01] VITALS: Ht 187.9 cm; Wt 79.4 kg
--- NOTE | ~2017-07-01 | O ---
[place], [place] OPERATIVE NOTE NAME: SUKHDEV MCDERMOTT UNIT #: [id number] ROOM: [facility] DOCTOR: MAGDALENA CLARKE MERGED WITH [facility] BIRTHDATE: [birth year] DOS: 07/03/2017 PROCEDURE REPORT The patient has severe thrombocytopenia and also extensive deep vein thrombosis both superficial femoral popliteal and tibioperoneal trunks, and the patient could not have an optimal access. The patient is on direct antithrombin therapy right now. The patient is undergoing chemotherapy and thus with thrombocytopenia until it resolves. The patient need inferior vena cava filter as a request by Dr. Parham, and the informed consent was obtained. I talked to the patient's sister and niece, and also told the potential removal of the inferior vena cava filter once the chemotherapy is done, when the thrombocytopenia subsides and with local MAC with the maximum protective biofilm, prep and draped with the Anesthesia guidance with the sedation in optimizing the vitals. The patient initially has atrial fibrillation rate of 150, but subsequently went up to 200, hence optimize the therapy with Cardizem and the rate improved with current therapy and the Rythmol and the beta-block agent and Cardizem. Blood pressure also stabilized. With local MAC with the maximum potential of full prep and draped and attached the micro access after the right femoral vein, MicroSheath was placed, 0.035 guidewire was placed and predilated with the dilator and subsequently [place]. Femoral sheath was placed and angiogram was performed and sheath was positioned below the right renal vein origin, which was the lowest one and to the appropriate markings and the filter was placed the top of the filter below the right renal vein origin and then deployed optimally and the cap of the filter with the hook is centrally located, no tilt and good placement. No complication, the filter was released and the sheath was kept and an angiogram was performed. The filter was in good position and below the right renal vein, which is the lowest level and no complication noted and the filter is centrally located without any tilt. The patient tolerated the procedure well. Hemostasis well obtained. CORTEZ NICHOLS MD CM:OPRECORD:OPERATIVE NOTE [id number] CORTEZ NICHOLS MD MERGED WITH [facility] 07/03/17 1211 interface
--- NOTE | ~2017-07-01 | PR ---
[place], [place] PROGRESS NOTE NAME: SUKHDEV MCDERMOTT [facility] #: [id number] UNIT #: [id number] ROOM: 530 DOCTOR: AFSANEH PHILLIPS MD BIRTHDATE: [birth year] DOS: 07/15/2017 SUBJECTIVE: The patient is stable. He has some low-grade fever. REVIEW OF SYSTEMS: HEENT: No trouble swallowing. No double vision. No loss of vision. No pain. ENT AND RESPIRATORY: No wheeze. No change in voice. No cough. No shortness of breath. No coughing up blood. No epistaxis. CARDIOLOGIC: No chest pain. No dizziness. No irregular heartbeat. No leg edema. No palpitations. No shortness of breath. HEMATOLOGIC AND LYMPH: No past transfusion. No fatigue. No loss of appetite. No easy bruising. GASTROENTEROLOGIC: No change in bowel habits. No vomiting blood. No abdominal cramping. No nausea. No vomiting. No diarrhea. No constipation. No blood in stool. MALE REPRODUCTIVE: No testicular pain. No penile discharge. MUSCULOSKELETAL: No back pain. No muscle pain or weakness. No tingling/numbness. UROLOGIC: No pain with urination. No difficulty urinating. No frequent urination. NEUROLOGIC: No burning pain in feet. No trouble with coordination. No loss of consciousness. No headache. No tingling/numbness. No memory loss. PHYSICAL EXAMINATION: GENERAL: A pleasant gentleman, in no apparent distress. VITAL SIGNS: Stable, febrile. Blood pressure 103/53, respirations 16, pulse 112, temperature 99.7. HEENT: Normocephalic, atraumatic. NECK AND THYROID: Supple. No JVD, thyromegaly, or lymphadenopathy. HEART: Normal S1, S2. Regular rate and rhythm. LUNGS: Clear to auscultation and percussion. ABDOMEN: Soft. Nontender, nondistended. Bowel sounds present. EXTREMITIES: Normal ROM. No clubbing. No edema. LABORATORY DATA: Sodium is 136, potassium 4.5, chloride 100, EGFR more than 60. White count of 6.3, hemoglobin 8.3, hematocrit 25.1, platelet count of 26,000. ASSESSMENT: 1. Metastatic stage 4 lung cancer. 2. Anemia of neoplastic disorder. 3. Thrombocytopenia. 4. Bilateral leg deep venous thrombosis. PLAN: Overall condition is poor. His performance status is poor. I have discussed with the family about hospice, which will be seeing him and he will be followed by hospice. Available records were reviewed. [place], [place] PROGRESS NOTE NAME: SUKHDEV MCDERMOTT UNIT #: [id number] ROOM: [facility] DOCTOR: AFSANEH PHILLIPS MD BIRTHDATE: [birth year] AFSANEH PHILLIPS MD CM:PNTRANS [phone] AFSANEH PHILLIPS MD 07/16/17 0001 interface
--- NOTE | ~2017-07-01 | PR ---
[place], [place] PROGRESS NOTE NAME: SUKHDEV MCDERMOTT UNIT #: [id number] ROOM: 530 DOCTOR: RODRIGO RODAS MD BIRTHDATE: [birth year] DOS: 07/13/2017 PULMONARY ADDENDUM NOTE The patient is independently seen and examined in [id number] encounter. History was confirmed. Physical examination was performed. The note done by the biomedical engineering professor was approved. SUBJECTIVE: The patient has been comfortably resting at this time, eating food, without any acute respiratory distress. There were no symptoms of coughing, shortness breath, or chest pain reported. He remains afebrile. OBJECTIVE: The vital signs recorded as BP 130/82, pulse 87, respirations 18, temperature 98.0. HEENT: Examination shows no acute change. NECK: Supple. CARDIOVASCULAR SYSTEM: S1, S2 audible. LUNGS: Mild decreased breath sounds are noted in the lungs bilaterally without any wheezing. ABDOMEN: Soft, nontender. EXTREMITIES: Show significant edema with no change from yesterday. LABORATORY DATA: Whit count 5.3 this morning, BMP of the patient; BUN 28, creatinine was normal. IMPRESSION: Edema of lower extremities at this time. Thrombocytopenia noted, intermittently requiring transfusion of the platelets on this hospitalization as anemia. History of moderately differentiated squamous cell carcinoma, which has been noted metastatic extensive different parts of the body including bones, left paraspinal are and others, known. PLAN OF TREATMENT: The patient will be continued on current plan of therapy without any changes. Continue supportive plan of management, other care plan. Supportive therapy, plan of management, and other treatment. [place], [place] PROGRESS NOTE NAME: SUKHDEV MCDERMOTT UNIT #: [id number] ROOM: 530 DOCTOR: RODRIGO RODAS MD BIRTHDATE: [birth year] RODRIGO NUÑEZ MD CM:PNTRANS [phone] RODRIGO LUCIANO MD 07/15/17 1102 interface
--- NOTE | ~2017-07-01 | CON ---
[place], [place] REPORT OF CONSULTATION NAME: SUKHDEV MCDERMOTT [facility] #: [id number] UNIT #: [id number] ROOM: [facility] DOCTOR: RODRIGO RODAS MD BIRTHDATE: [birth year] DOS: 07/02/2017 REASON FOR CONSULTATION: To assess the patient. Possibility of acute pneumonia with current sepsis for the patient diagnosis as well as other critical illnesses. The consultation requested by Dr. Jennifer Alvarez. HISTORY OF PRESENT ILLNESS: This is a 71-year-old -[place] male very well known to me, past history of advanced metastatic squamous cell cancer, currently treated with Keytruda for his advanced small cell lung cancer or rather squamous cell cancer. He has been admitted to the hospital in 05/2017, and at that time, the patient was treated for positive bacteremia. MediPort was removed at that time. He was discharged and was currently staying at the [facility]. The patient has been brought to the hospital again. The patient has been noted with a fever, shortness of breath and other ongoing acute respiratory symptom. He was also noted significant imbalance for the patient, which has been treated with the physical therapy. He was also noted with the tachycardia for the patient with hypertension as well with pulse ox saturation only 90% for the patient. The patient has been admitted to the Intensive Care Unit and being managed for possibility of acute sepsis. The patient has been noted with symptoms of chills and fever as well. He has not been noted any symptoms of chest pain. There were no symptoms of hemoptysis noted. The patient has been admitted to the hospital. REVIEW OF SYSTEMS: CONSTITUTIONAL: Somewhat limited. The patient overall medical status, there were no symptoms of current fever or chills described by the patient, but has been recorded patient on admissions. EARS, NOSE, THROAT SYMPTOMS: No sore throat, hoarseness, otalgia reported. EYES: Denies any burning, redness, or discharge in the eyes. CARDIOVASCULAR: The patient noted with edema of the lower extremities. No palpitation symptoms or anginal pain. GASTROINTESTINAL: Denies symptoms of dysphagia, nausea, vomiting, diarrhea, abdominal pain, hematemesis, melena, or hematochezia. SKIN: There were no lesions or rashes reported by the patient. CENTRAL NERVOUS SYSTEM: With general weakness and fatigue. Frequent fall of the patient with metastatic cancer involving the paraspinal area as well. Remaining systems were reviewed and they were noted all negative. PAST MEDICAL HISTORY: 1. Includes COPD with a centrilobular emphysema. 2. Moderately differentiated squamous cell carcinoma, which has been noted metastatic extensive different parts of the body including bones, left paraspinal area and others. 3. Gastroesophageal reflux. 4. Essential hypertension. 5. Hypercholesterolemia. 6. BPH. 7. Frequent falls. 8. History of seizure. [place], [place] REPORT OF CONSULTATION NAME: SUKHDEV MCDERMOTT UNIT #: [id number] ROOM: [facility] DOCTOR: JOAQUIN LUCIANO MD,RODRIGO BIRTHDATE: [birth year] 9. Chronic hypoxic respiratory failure. 10. Osteoporosis. PAST SURGICAL HISTORY: 1. Arthroscopy. 2. Needle aspirate biopsy, left paraspinal mass. The patient on 05/13/2016, that day establish a diagnosis for the patient with repeat PD-L1 positive tumor marker with moderately differentiated squamous cell cancer. 3. MediPort insertion of the patient's left chest and then removal in 05/2017, because of the bacteremia. SOCIAL HISTORY: The patient never . He is single, does not have any children. He is currently a resident of a nursing facility since last discharge 05/2017. Smoking noted from age of [age] years old, 2-1/2 pack of cigarettes per day, discontinued 2016. There was no history of alcohol or illicit drug use. FAMILY HISTORY: Father at 65 years old, complication related to stroke. Mother at 65 years old from old age, reported. CURRENT MEDICATIONS: Administered were noted as use of Fosamax, Lipitor, aspirin, magnesium oxide, Flomax, Protonix, tramadol, Keppra, gabapentin, Mucinex, meclizine, DuoNeb, Levaquin, vancomycin, Zosyn and other p.r.n. medications administration. The patient was also getting the Tamiflu 75 mg p.o. b.i.d., 10 doses ordered. DRUG ALLERGIES: The patient noted no known drug allergies. PHYSICAL EXAMINATION: GENERAL: A 71-year-old white male who has been currently noted to be awake and alert with oxygen supplementation nasal cannula. Height of 6 feet 2 inches, weight of 175 pounds, BMI 22.4 recorded. Admission with nursing staff. VITAL SIGNS: Temperature of the patient was noted at 100.7 degree Fahrenheit to normal temperature, respiratory rate 17-24, heart rate 99-121 with sinus tachycardia. The blood pressure 120/60-140/51. Intake 5070, output 2.490 liter and positive 2.580 liters. The blood pressure lowest for the patient noted as 80/50. The pulse oxygen saturation for the patient on 3 liter nasal cannula recorded at this time as 100% saturation at rest. HEENT: Shows head was atraumatic. Eyes nonicterus. NECK: Supple. Oral mucosa moist. CARDIOVASCULAR: S1, S2 is audible. LUNGS: The patient was noted with myji-yy-qectzmao degree breath sounds with that no wheezing and no crackles heard at the present time. ABDOMEN: Soft with mild to moderate obesity. Bowel sounds present. There was no tenderness. VISIBLE SKIN: No lesions or rashes, dryness of the skin of the lower extremity noted and 2 to 3+ pitting edema of bilateral lower extremities was noted. GENITOURINARY: The patient generally intact for this patient without any focal deficit at the present time. MUSCULOSKELETAL: No deformities. [place], [place] REPORT OF CONSULTATION NAME: SUKHDEV MCDERMOTT UNIT #: [id number] ROOM: [facility] DOCTOR: JOAQUIN LUCIANO MD,[facility] BIRTHDATE: [birth year] LABORATORY DATA: The patient's CBC on admission 07/01/2017: WBC count normal, hemoglobin 9.1 and hematocrit 28.7, platelet count 39,000. Troponin noted 0.47 on admission. CMP of the patient of 07/01/2017, BUN 36, creatinine was normal. Albumin 1.9, total protein of 6.9. The influenza A and B, nasal washing antigen were both noted as negative. The BMP this morning, BUN 24, creatinine normal, glucose 187. CBC this morning, WBC count 7.3, hemoglobin 22.9, platelet count 27,000 was also noted. Ultrasound bilateral lower extremities. The patient was just completed shows finding consistent with bilateral extensive deep venous thrombosis of the lower extremities. Vancomycin trough level was completed today was 13.1. The CT scan of the abdomen and pelvis was done with oral contrast. The patient reported by the radiologist. The patient's lower portions shows the finding of a possibility of pneumonia and metastatic disease was noted in the skeleton as previously reported. There were no acute abdominal or pelvic pathologies reported. There were no bowel obstruction described. Possibility of left renal malignancy versus metastatic was also reported by the radiologist report. Urine culture shows heavy growth of gram-negative bacilli greater than 100,000 colony forming units. Chest x-ray of the patient that was done shows triangular mass lesion noted in the right upper lung. IMPRESSION: 1. The patient will be currently admitted to the hospital and noted with acute hypoxic respiratory failure with the suspected acute pneumonia; however, other etiologies of the shortness of breath for this patient's respiratory failure would be considered. 2. Hypertension secondary to current acute sepsis would be considered. 3. Abnormal growth in the urine for ____ remain in consideration. 4. Known advanced metastatic squamous cell cancer. 5. Current treatment with Keytruda. The patient raises a possibility of pulmonary toxicity as well as and/or pneumonia with immunosuppression. 6. The patient with overall poor physical status as well with protein calorie malnutrition status as well in general. 7. Decreased mobility secondary to the current malignancy as well. 8. History of chronic obstructive pulmonary disease, does not seem to have any acute exacerbation. 9. Anemia was noted, the patient may require blood transfusion. 10. Thrombocytopenia was also noted on admission of significance with partial worsening noted in the last 24 hours. The etiology would be considered either chemotherapy, underlying malignancy or current deep venous thrombosis. 11. History of general anxiety disorder. PLAN OF TREATMENT: The patient has been noted extremely complicated at this time. The blood pressure has been improved with intravenous fluid supplementation. I agree with current broad-spectrum intravenous antibiotic with close monitoring of blood culture. Avoid fluid overload for this patient. The patient will be given at least 1 dose of Lovenox at this time given which will be effective for 12 hour anticoagulation. After that, the patient will be started on argatroban for patient maintenance dose. IVC filter placement would be considered strongly for this patient because of extensive thrombosis for this patient, but that will be decided after the CT of the chest obtained for this patient for further assessment to exclude the pulmonary embolism. The patient [place], [place] REPORT OF CONSULTATION NAME: SUKHDEV MCDERMOTT UNIT #: [id number] ROOM: [facility] DOCTOR: JOAQUIN LUCIANO MD,RODRIGO BIRTHDATE: [birth year] would be continued on the bronchodilators for the patient as well. The antibiotic spectrum will be reduced based on the further assessment. The CT scan of chest, also will be helpful to at least assess for any underlying infiltration since the chest x-ray was not suggestive of any acute infiltration. Other supportive plan of management care as well. Continue the patient in Critical Care Unit for close monitor hemodynamics. Usual care. Additional treatment changes will be made for the patient later on as necessary. Total time pulmonary critical evaluation and management is 48 minutes. RODRIGO NUÑEZ MD CM:CONSTR:REPORT OF CONSULTATION 1443 07/02/17 7646 interface
--- NOTE | ~2017-07-01 | PR ---
[place], [place] PROGRESS NOTE NAME: SUKHDEV MCDERMOTT [facility] #: [id number] UNIT #: [id number] ROOM: 530 DOCTOR: JOAQUIN LUCIANO MD,RODRIGO BIRTHDATE: [birth year] DOS: 07/09/2017 SUBJECTIVE: The patient has been noted comfortable at the present time. He has now been noted symptoms of shortness of breath, coughing, or sputum expectoration. Denies symptoms of chest pain. He has now been noted any symptoms of hematemesis, melena, hematochezia, or hematuria. The pain in the body remains uncontrolled. The patient was noted mostly on the bed and now been ambulating. OBJECTIVE: VITAL SIGNS: For the patient which has been recorded showed the temperature noted as normal, respiratory rate 18, heart rate of 74, blood pressure 146/70. The pulse oxygen saturation noted on room air was 94% saturation. HEENT: Showed no acute change. NECK: Supple. CARDIOVASCULAR: S1, S2 is audible. LUNGS: The patient was noted without any crackles. The expiratory wheezing was noted. MUSCULOSKELETAL: Noted without any acute deformities. SKIN: Noted without lesions or rashes. LABORATORY DATA: CBC today: WBC count 10,000, hemoglobin 9.9, hematocrit 30.2, platelet count of 10,000, 92% segmented neutrophils were noted. BMP: BUN 25, creatinine was normal. Chest x-ray that were done yesterday. The patient showed marked improvement in the aeration of the lung with resolution previous noted interstitial infiltration in the lungs. The mass in the right upper lung remained visible without changes as well. IMPRESSION: 1. Progressive resolution of the acute respiratory failure, improvement of pulmonary infiltration and pulmonary toxicity secondary to the allergic drug reaction with Keytruda. 2. Resolving acute respiratory failure as well. 3. Recurrent thrombocytopenia. 4. Bilateral deep venous thrombosis. 5. Mild Coumadin toxicity. INR today noted 3.8. 6. Severe debility. 7. Advanced squamous cell cancer with metastasis. PLAN OF MANAGEMENT: The patient has been given the platelet transfusion. Dr. Da Silva because of the thrombocytopenia. At this time, the Coumadin will be kept off until the INR have been noted therapeutic and to be started at lower dose. The dose of the corticosteroids will be decreased to 40 mg daily at this time as a pulmonary infiltration improved significantly gradual with the use of the corticosteroids. Other supportive plan and management continued as well. Usual care, other therapy, plan of care. [place], [place] PROGRESS NOTE NAME: SUKHDEV MCDERMOTT [facility] UNIT #: [id number] ROOM: [facility] DOCTOR: JOAQUIN LUCIANO MD,RODRIGO BIRTHDATE: [birth year] RODRIGO NUÑEZ MD CM:PNTRANS [phone] RODRIGO LUCIANO MD 07/10/17 0146 interface
--- NOTE | ~2017-07-01 | EKG ---
[place], [place] ELECTROCARDIOGRAM REPORT NAME: SUKHDEV MCDERMOTT UNIT #: [id number] ROOM: [facility] DOCTOR: CELINA CLARKE,CHER BIRTHDATE: [birth year] DOS: 07/01/2017 TIME: 1350 hours. IMPRESSION: 1. Sinus tachycardia. 2. Baseline artifact. 3. Poor R-wave progression. CHER PATRICK MD CM:EKGRPT:ELECTROCARDIOGRAM REPORT 1422 1902 CHER PATRICK MD
--- NOTE | ~2017-07-01 | PR ---
[place], [place] PROGRESS NOTE NAME: SUKHDEV MCDERMOTT [facility] #: [id number] UNIT #: [id number] ROOM: 530 DOCTOR: AFSANEH PHILLIPS MD BIRTHDATE: [birth year] DOS: 07/10/2017 SUBJECTIVE: The patient is doing much better. He is lying comfortably in bed, eating his breakfast. REVIEW OF SYSTEMS HEENT: No trouble swallowing. No double vision. No loss of vision. No pain. ENT AND RESPIRATORY: No wheeze. No change in voice. No cough. No shortness of breath. No coughing up blood. No epistaxis. CARDIOLOGIC: No chest pain. No dizziness. No irregular heartbeat. No leg edema. No palpitations. No shortness of breath. HEMATOLOGIC AND LYMPH: No past transfusion. No fatigue. No loss of appetite. No easy bruising. GASTROENEROLOGIC: No change in bowel habits. No vomiting blood. No abdominal cramping. No nausea. No vomiting. No diarrhea. No constipation. No blood in stool. MALE REPRODUCTIVE: No testicular pain. No penile discharge. MUSCULOSKELETAL: No back pain. No muscle pain or weakness. No tingling/numbness. UROLOGIC: No pain with urination. No difficulty urinating. No frequent urination. NEUROLOGIC: No burning pain in feet. No trouble with coordination. No loss of consciousness. No headache. No tingling/numbness. No memory loss. PHYSICAL EXAMINATION GENERAL: Pleasant gentleman, in no apparent distress. VITAL SIGNS: Stable. He is afebrile. HEENT: Normocephalic, atraumatic NECK AND THYROID: Supple. No JVD, thyromegaly, or lymphadenopathy. HEART: Normal S1, S2. Regular rate and rhythm. LUNGS: Clear to auscultation and percussion. ABDOMEN: Soft. Nontender, nondistended. Bowel sounds present. EXTREMITIES: Normal ROM. No clubbing. No edema. LABORATORY DATA: White count of 10.5, hemoglobin 10.7, hematocrit 32.4, platelet count of 33,000. ASSESSMENT: 1. Metastatic lung cancer, nonsmall cell. 2. Progressive resolution of the acute respiratory failure with improvement of pulmonary infiltration and pneumonitis secondary to ____. 3. Recurrent thrombocytopenia. 4. Bilateral DVTs. 5. Thrombocytopenia. PLAN: Status post blood transfusion. The patient on anticoagulation. He will be getting a PET scan outpatient. He did not get a PET scan. We will do it when he will discharged. Depending on further evaluation establishment will be done as we recall his diagnosis was around end of 2015. The patient is on corticosteroids and will be wean according to Dr. Parham. Ample time was given to [place], [place] PROGRESS NOTE NAME: SUKHDEV MCDERMOTT UNIT #: [id number] ROOM: 530 DOCTOR: AFSANEH PHILLIPS MD BIRTHDATE: [birth year] the patient to ask me questions. AFSANEH PHILLIPS MD CM:PNTRANS [id number] AFSANEH PHILLIPS MD 07/10/17 1217 interface
--- NOTE | ~2017-07-01 | PR ---
[place], [place] PROGRESS NOTE NAME: SUKHDEV MCDERMOTT [facility] #: [id number] UNIT #: [id number] ROOM: [facility] DOCTOR: AFSANEH PHILLIPS MD BIRTHDATE: [birth year] DOS: 07/04/2017 SUBJECTIVE: The patient is doing much better. He is awake, alert and responsive. PHYSICAL EXAMINATION NERAL: Pleasant gentleman in no apparent distress. VITAL SIGNS: Blood pressure 114/52, respiration rate 33, pulse 84, temperature 98.3. HEENT: Normocephalic, atraumatic NECK AND THYROID: Supple. No JVD, thyromegaly, or lymphadenopathy. HEART: Normal S1, S2. Regular rate and rhythm. LUNGS: Clear to auscultation and percussion. ABDOMEN: Soft. Nontender, nondistended. Bowel sounds present. EXTREMITIES: Normal ROM. No clubbing. No edema. REVIEW OF SYSTEMS HEENT: No trouble swallowing. No double vision. No loss of vision. No pain. ENT AND RESPIRATORY: No wheeze. No change in voice. No cough. No shortness of breath. No coughing up blood. No epistaxis. CARDIOLOGIC: No chest pain. No dizziness. No irregular heartbeat. No leg edema. No palpitations. No shortness of breath. HEMATOLOGIC AND LYMPH: No past transfusion. No fatigue. No loss of appetite. No easy bruising. GASTROENTEROLOGIC: No change in bowel habits. No vomiting blood. No abdominal cramping. No nausea. No vomiting. No diarrhea. No constipation. No blood in stool. MALE REPRODUCTIVE: No testicular pain. No penile discharge. MUSCULOSKELETAL: No back pain. No muscle pain or weakness. No tingling/numbness. UROLOGIC: No pain with urination. No difficulty urinating. No frequent urination. NEUROLOGIC: No burning pain in feet. No trouble with coordination. No loss of consciousness. No headache. No tingling/numbness. No memory loss. LABORATORY DATA: Sodium 143, potassium 4.6, chloride 101, EGFR is more than 60. White count of 6.6, hemoglobin 6.8, hematocrit 22.2, MCV 104.2, platelet count of 30,000. ASSESSMENT: 1. Sepsis. 2. Possible pneumonia. 3. Metastatic lung cancer. 4. Thrombocytopenia. 5. Bilateral DVTs. PLAN: We will continue anticoagulation as well as he will get 2 units of packed RBC. He had a PET scan done recently. I am going to review the PET scan depending on the further intervention. In the meantime, blood transfusion on p.r.n. basis. Ample time was given to the patient to ask me questions. The patient will follow as an outpatient. [place], [place] PROGRESS NOTE NAME: SHARRONSUKHDEV [facility] UNIT #: [id number] ROOM: [facility] DOCTOR: AFSANEH PHILLIPS MD BIRTHDATE: [birth year] AFSANEH PHILLIPS MD CM:NATASHA 1403 [id number] AFSANEH PHILLIPS MD 07/05/17 0028 interface
--- NOTE | ~2017-07-01 | PR ---
[place], [place] PROGRESS NOTE NAME: SUKHDEV MCDERMOTT [facility] #: [id number] UNIT #: [id number] ROOM: [facility]- DOCTOR: STEVE RYAN,SEPTEMBER BIRTHDATE: [birth year] DOS: 07/03/2017 SUBJECTIVE: The patient is a 71-year-old -[place]ombian male being followed for probable pneumonia. CT of his chest showed his extensive osseous involvement from his non-small cell lung CA, as well as enlarging masses in the lungs, as well as an area on one of the kidneys, but also showed extensive airspace consolidation, possibly due to his radiation versus pneumonia. He has been afebrile, had a good appetite. No nausea or vomiting. No diarrhea. Review of systems is actually obtained from nursing. He does look better today. The patient himself is rather confused. He has been receiving Zosyn and vancomycin. Reviewing his cultures, his urine culture grew Morganella. Blood cultures are negative. MRSA screen is negative and his influenza is negative. WBC is 6.3, platelets 30. BUN 17, creatinine 0.72. CURRENT MEDICATIONS: Solu-Medrol, Cardizem, Rythmol, Lopressor, Fosamax, argatroban Lipitor, Flomax, mag ox, Os-Tung, aspirin, Protonix, vancomycin, Zosyn, Decadron, Ultram, Keppra, Mucinex, Neurontin, MiraLax, Percocet, Antivert, DuoNeb, morphine, Restoril. Of note, he went for an IVC filter placement today. He had some cardiac issues, had to be placed on Cardizem. PHYSICAL EXAMINATION: VITAL SIGNS: Temperature 98.1, pulse 145, respirations 24, BP 93/52: GENERAL: A 71-year-old -[place] male, in no acute distress. HEAD, EYES, EARS, NOSE AND THROAT: Normocephalic. No thrush. Missing multiple teeth. LUNGS: Diminished bilaterally with right greater than left, with rales noted. Respirations somewhat wet, even and unlabored. HEART: Regular rhythm. No murmur appreciated. ABDOMEN: Soft, nontender, nondistended. EXTREMITIES: +1 to 2 edema, bilateral lower extremities. SKIN: Warm, dry, free of rashes. ASSESSMENT: Probable healthcare-associated pneumonia. PLAN: Continue the Zosyn, stop the vancomycin. His MRSA screen was negative. A sputum culture has not been obtainable. MICHAEL WILSON CNP [place], [place] PROGRESS NOTE NAME: SUKHDEV MCDERMOTT UNIT #: [id number] ROOM: [facility] DOCTOR: STEVE RYAN BIRTHDATE: [birth year] KATIE PINEDA MD CM:PNTRANS [phone] SEPTEMBER STEVE RYAN 07/04/17 0703 interface
--- NOTE | ~2017-07-01 | PR ---
[place], [place] PROGRESS NOTE [id number] UN[facility] #: [id number] ROOM: [facility] DOCTOR: ROBERT FRANCO MD BIRTHDATE: [birth year] DOS: 07/03/2017 SUBJECTIVE: Patient is having advanced metastatic CA of the lungs going to the bones and his CAT scan shows progressively increasing size of the tumor and he has also developed deep vein thrombosis of the lower legs and has IVC filter put in today on him. He also developed supraventricular tachycardia and consultation was called with Dr. Powers and is being taken care by proper medication and he is just getting it to control, his blood pressure has improved and his respiration has stabilized right now. His blood culture is negative. His APTT is 50.5. OBJECTIVE: VITAL SIGNS: His blood pressure is 118/78, pulse is 114, respirations 20, temperature 96.5. His prognosis due to multiple medical problems is very poor and I have discussed this with the patient. ROBERT FRANCO MD CM:NATASHA [id number] ROBERT FRANCO MD 07/04/1730 interface
--- NOTE | ~2017-07-01 | PR ---
[place], [place] PROGRESS NOTE NAME: SUKHDEV MCDERMOTT UNIT #: [id number] ROOM: 530 DOCTOR: RODRIGO RODAS MD BIRTHDATE: [birth year] DOS: 07/13/2017 PULMONARY PROGRESS ADDENDUM NOTE SUBJECTIVE: The patient was seen and examined today independently with [id number] encounter. The patient's history was confirmed. Physical examination performed. All the labs were reviewed. The assessment and management of the patient's note was personally made for this patient. Any changes in the medical management personally done as well. Note done by the medical psychotherapist was approved. The patient remains comfortable at this time without any symptoms of acute shortness of breath. Mild cough is reported without any symptoms of chest pain. He remains afebrile. OBJECTIVE: VITAL SIGNS: For the patient, which were noted showed this morning as a normal temperature, respirations 16, heart rate 73, blood pressure 128/73. Pulse oxygen saturation on 3 liters nasal cannula at 98% saturation. HEENT: Shows head was atraumatic. Eyes nonicterus. NECK: Supple. CARDIOVASCULAR: S1, S2 is audible. LUNGS: The patient was noted without any wheezing or crackles at the present time. ABDOMEN: Soft, nontender. EXTREMITIES: Shows persistent edema. IMPRESSION: The patient with stable respiratory status noted at the present time with therapeutic INR with bilateral deep venous thrombosis, advanced metastatic squamous cell cancer, respiratory failure. PLAN OF MANAGEMENT: No changes in the plan of therapy for the patient at this time will be necessary. All other treatment plan as previously will be continued. Overall prognosis of the patient remains guarded. Additional treatment changes will be done for the patient based on the progression of his illness. Consider discontinuing antibiotics in the next couple of days as the total course of pneumonia for the patient will be treated. The patient clinically showing no signs of active pneumonia at this time. [place], [place] PROGRESS NOTE NAME: SUKHDEV MCDERMOTT UNIT #: [id number] ROOM: 530 DOCTOR: RODRIGO RODAS MD BIRTHDATE: [birth year] RODRIGO NUÑEZ MD CM:PNTRANS [phone] RODRIGO LUCIANO MD 07/14/17 2251 interface
--- NOTE | ~2017-07-01 | PR ---
[place], [place] PROGRESS NOTE NAME: SUKHDEV MCDERMOTT [facility] #: [id number] UNIT #: [id number] ROOM: [facility] DOCTOR: AFSANEH PHILLIPS MD BIRTHDATE: [birth year] DOS: 07/05/2017 SUBJECTIVE: The patient is doing much better. He is alert and oriented. REVIEW OF SYSTEMS: HEENT: No trouble swallowing. No double vision. No loss of vision. No pain. ENT AND RESPIRATORY: No wheeze. No change in voice. No cough. No shortness of breath. No coughing up blood. No epistaxis. CARDIOLOGIC: No chest pain. No dizziness. No irregular heartbeat. No leg edema. No palpitations. No shortness of breath. HEMATOLOGIC AND LYMPH: No past transfusion. No fatigue. No loss of appetite. No easy bruising. GASTROENEROLOGIC: No change in bowel habits. No vomiting blood. No abdominal cramping. No nausea. No vomiting. No diarrhea. No constipation. No blood in stool. MALE REPRODUCTIVE: No testicular pain. No penile discharge. MUSCULOSKELETAL: No back pain. No muscle pain or weakness. No tingling/numbness. UROLOGIC: No pain with urination. No difficulty urinating. No frequent urination. NEUROLOGIC: No burning pain in feet. No trouble with coordination. No loss of consciousness. No headache. No tingling/numbness. No memory loss. PHYSICAL EXAMINATION: GENERAL: Pleasant gentleman in no apparent distress. VITAL SIGNS: Stable. He is afebrile. HEENT: Normocephalic, atraumatic NECK AND THYROID: Supple. No JVD, thyromegaly, or lymphadenopathy. HEART: Normal S1, S2. Regular rate and rhythm. LUNGS: Clear to auscultation and percussion. ABDOMEN: Soft. Nontender, nondistended. Bowel sounds present. EXTREMITIES: Normal ROM. No clubbing. No edema. LABORATORY DATA: White count of 8.3, hemoglobin 9.3, hematocrit 28.3, and platelet count 27,000. ASSESSMENT: 1. Status post inferior vena cava filter secondary to extensive bilateral deep vein thrombosis. 2. Metastatic lung cancer, squamous cell. 3. Possible pneumonitis secondary to Keytruda, questionable. 4. Thrombocytopenia. 5. Anemia of neoplastic disorder. PLAN: The patient got 2 units of packed RBC in addition. He is on nicardipine as well as status post IVC filter. Keep a close watch at this time. Overall, he is doing better than before. I had a detailed discussion with the patient about it. [place], [place] PROGRESS NOTE NAME: SUKHDEV MCDERMOTT UNIT #: [id number] ROOM: [facility] DOCTOR: JACQUELINE CLARKE,AFSANEH BIRTHDATE: [birth year] AFSANEH PHILLIPS MD CM:PNYRIS [phone] AFSANEH PHILLIPS MD 07/05/17 0905 interface
--- NOTE | ~2017-07-01 | CON ---
[place], [place] REPORT OF CONSULTATION NAME: SUKHDEV MCDERMOTT UNIT #: [id number] ROOM: [facility] DOCTOR: STEVE RYAN,SEPTEMBER BIRTHDATE: [birth year] DOS: 07/02/2017 ADDENDUM Given the patient's thrombocytopenia, etc., we will hold off on removing the PICC given if blood cultures remain sterile at 24 hours; however, if any blood cultures return positive, he does need to have it removed. Once he is more stabilized, we will consider removing the PICC and placing another one or leaving it out if access is no longer necessary. SEPTEMBER CONNOR WILSON TIERRA CASTLE MD CM:CONSTR:REPORT OF CONSULTATION 1732 07/03/17 1455 interface
--- NOTE | ~2017-07-01 | PR ---
[place], [place] PROGRESS NOTE NAME: [facility]OTT [id number] UN[facility] #: [id number] ROOM: 530 DOCTOR: JOAQUIN LUCIANO MD,RODRIGO BIRTHDATE: [birth year] DOS: 07/16/2017 PULMONARY PROGRESS NOTE SUBJECTIVE: The patient was seen and examined on 07/16/2017, was noted comfortable at this time, resting on his bed without any acute distress. The patient has not been discharged as yet to the nursing facility. He has been noted comfortable at this time, using oxygen supplementation nasal cannula. He has not been reported symptoms of chest pain, hemoptysis ,or any abdominal pain. OBJECTIVE: VITAL SIGNS: The vital signs of the patient showed normal temperature, respiratory rate 20, heart rate 82, and blood pressure ____. Pulse ox saturation on 2 liters nasal cannula was maintained 94% saturation at rest. HEENT: Examination shows head was atraumatic. Eyes nonicterus. NECK: Supple. CARDIOVASCULAR: S1, S2 audible. LUNGS: The patient was noted without any wheezing or crackles. ABDOMEN: Soft, nontender. IMPRESSION: 1. Resolving acute respiratory failure. The patient with acute pneumonia. Resolution of pulmonary toxicity related to Keytruda. 2. Thrombocytopenia of the patient, which has been noted related to underlying malignancy and chemotherapy, been treated with platelet transfusion at times. PLAN OF MANAGEMENT: No changes in plan of therapy at this time. Continue the patient's current therapy as previously. Usual care, other supportive plan of therapy, and care. RODRIGO NUÑEZ MD CM:PNTRANS [phone] RODRIGO LUCIANO MD 07/17/17 0109 interface
--- NOTE | ~2017-07-01 | CON ---
[place], [place] REPORT OF CONSULTATION NAME: SUKHDEV MCDERMOTT UNIT #: [id number] ROOM: [facility] DOCTOR[facility]ENA CL[facility]KE [facility] [birth year] DOS: 07/03/2017 CARDIOLOGY CONSULTATION HISTORY OF PRESENT ILLNESS: The patient is in ICU. The patient has extensive deep vein thrombosis and the patient has a severe thrombocytopenia. The patient has been treated with chemotherapy about the cancer of the lung and could not give the commercial anticoagulation and the patient is getting the direct antithrombin Argatroban. The patient is in the critical care unit, Dr. Singh seen and requested me to place the inferior vena cava filter. The patient also have an atrial fibrillation rapid ventricular response rate varying from 150 greater than 200 hence we optimizing the medical therapy to improve the heart rate. The patient is on small dose of beta blockade and the Cardizem bolus drip, all maintained the optimal blood pressure and also Rythmol. Once is rate is controlled, we may discontinue the Cardizem and continue the beta blockade and some Rythmol. If necessary small dose of Cardizem. The patient overall medical status is not optimal. No chills or rigors. REIVEW OF SYSTEMS: CARDIOVASCULAR: The patient has some peripheral edema, lower extremities. No angina. No syncope. GASTROINTESTINAL: Unremarkable. SKIN: Warm, not diaphoretic. No cyanosis. NEUROLOGY: No gross focal neurological. The patient is weak and entire density. PAST MEDICAL HISTORY: Chronic obstructive disease and emphysema. The patient has differentiated squamous cell carcinoma of the lung, metastatic extensive into the different parts including the bone and left paraspinal area and others. The patient has gastroesophageal reflux, essential hypertension, dyslipidemia, BPH, frequent falls, history of seizure and history of respiratory insufficiency and hypoxia, osteoporosis. PAST SURGICAL HISTORY: Include arthroscopy, needle aspiration biopsy of the left paraspinal mass, the patient has established diagnosis on 05/13/2016, with a positive tumor marker, squamous cell carcinoma of the lung. The patient has a MediPort insertion, left chest and then removed on 05/2017 because of the bacteremia. I talked to them and I explained about the IVC filter and the filter removed when the chemotherapy is over and the platelets become optimize. SOCIAL HISTORY: The patient has a history of 2.5 pack a day for several years, discontinued in 2017. Father at the old age, history of stroke. Mother at the old age. MEDICATIONS: The patient is on Flomax, tramadol, gabapentin, DuoNeb, Levaquin, vancomycin, and Zosyn. The patient is also on Tamiflu 75 mg twice a day, 10 doses ordered. ALLERGIES: No known drug allergies. [place], [place] REPORT OF CONSULTATION NAME: SUKHDEV MCDERMOTT UNIT #: [id number] ROOM: [facility] DOCTOR: MAG[facility]ENA CL[facility]KE [facility] B[facility]: [birth year] PHYSICAL EXAMINATOIN: VITAL SIGNS: Heart rate is 160-200, blood pressure 90/60. SKIN: Warm, not diaphoretic. LUNGS: Normal breath sounds at bases. HEART: S1, S2 irregularly irregular, atrial fibrillation with a rapid ventricular response. ABDOMEN: Soft. EXTREMITIES: Femoral pulses were well felt. NEUROLOGIC: No gross focal neurological deficit noted. DIAGOSES: Extensive deep vein thrombosis, lower extremity, severe thrombocytopenia, essential hypertension with borderline low blood pressure, dyslipidemia, chronic obstructive emphysema, anxiety. PLAN: Inferior vena cava filter, optimize the medical therapy for atrial fibrillation with a rapid ventricular response, and I explained to the patient and the family, and we will plan on retrieving filter and I will also communicate with Dr. Parham, pulmonary care and critical care managing with current status of the patient along with Dr. Santana Hudson and . ____ also seen the patient, evidence of acute nonocclusive DVT within the bilateral superficial femoral popliteal and tibioperoneal trunk, pretty extensive being a popliteal and superficial femoral big vessels and include risk of central embolization. There is no evidence of pulmonary emboli over the CT angio of the chest. Thoracic artery is normal. No dissection aneurysms noted. CORTEZ NICHOLS MD CM:CONSTR:REPORT OF CONSULTATION 1102 07/03/17 1318 interface SANTANA HUDSON MD
--- NOTE | ~2017-07-01 | PR ---
[place], [place] PROGRESS NOTE NAME: [id number] UN[facility] #: [id number] ROOM: 530 DOCTOR: MAGDALENA CLARKE [facility],CORTEZ BIRTHDATE: [birth year] DOS: 07/12/2017 SUBJECTIVE: No angina, no dyspnea, no syncope. OBJECTIVE: GENERAL: Not in acute distress. Sleeping quite comfortably VITAL SIGNS: The patient has a borderline blood pressure 98/50 and occasionally goes below 90 and heart rate last night was 139, 144, and 129 with a small dose of beta-chino converted back to the sinus rhythm from atrial fibrillation and now the patient is in stable sinus rhythm at a rate of 70-80. The patient is hypertensive. HEENT: No tachypnea, not dyspneic. NECK: No jugular venous distention. LUNGS: Bibasilar rhonchi, no wheezing, no significant rales heard. HEART: S1, S2 regular, 1/2 systolic murmur. ABDOMEN: Soft. SKIN: Warm and not diaphoretic, no cyanosis. LABORATORY DATA: Hemoglobin is 9.6 and platelet count is down still, but better than before, it is 27,000. The chest x-ray done day prior shows stable large mass in the right upper lobe consistent with malignancy, pneumonia, extending from the hilum into the apex of the right lower lobe. Bronchopneumonia, left upper lobe extending from the left, but no obvious findings for ____ hence we may give some additional fluid to maintain an optimal blood pressure while keeping him in sinus rhythm and status post IVC filter since cannot give any significant anticoagulation because of the persistent thrombocytopenia. I will follow the patient for his cardiovascular status. CORTEZ NICHOLS MD CM:PNTRANS [phone] CORTEZ NICHOLS MD, FACC 07/12/17 0851 interface
--- NOTE | ~2017-07-01 | CON ---
[place], [place] REPORT OF CONSULTATION NAME: SUKHDEV MCDERMOTT UNIT #: [id number] ROOM: [facility] DOCTOR: MIRIAM CLARKE,KATIE Mattson BIRTHDATE: [birth year] DOS: 07/02/2017 ADDENDUM After reviewing the chart, radiographs and labs and microbiology, I agree with the above plans as described. We will follow the patient up clinically and adjust accordingly. Thanks for allowing us to see the patient. KATIE PINEDA MD CM:CONSTR:REPORT OF CONSULTATION 2139 07/03/17 1507 interface
--- NOTE | ~2017-07-01 | PR ---
[place], [place] PROGRESS NOTE NAME: [id number] UN[facility] #: [id number] ROOM: 530 DOCTOR: ANÍBAL COY DO BIRTHDATE: [birth year] DOS: 07/08/2017 SUBJECTIVE: The patient is seen and examined at bedside. The patient continues to remain in the hospital and is comfortable at this time with no acute distress. The patient has no new complaints at this time of shortness of breath, cough, fever, chills, chest pain, wheezing. PHYSICAL EXAMINATION: VITAL SIGNS: Temperature 97.4, pulse is 71, respirations 20, blood pressure 160/80, pulse ox is 97% on 1 liter nasal cannula. HEENT: Eyes are clear. Nares are patent. Membranes are moist. CARDIOVASCULAR: S1, S2, audible. LUNGS: Clear to auscultation. No wheezes, rales or rhonchi. ABDOMEN: Soft, nontender with positive bowel sounds. EXTREMITIES: Show mild 1+ edema in bilateral lower extremities. LABORATORY DATA: CBC: White count 11.1, hemoglobin 10.4, hematocrit 32.5, platelets count 20. Chemistries were grossly normal with no change from yesterday. IMPRESSION: Bilateral deep venous thrombosis. Lower extremity IVC filter in place with severe thrombocytopenia secondary to chemo, history of advanced metastatic squamous cell cancer. TREATMENT PLAN: No change in care at this time. Continue with current respiratory therapy, the patient getting the best treatment. We will continue to follow. The patient's prognosis is guarded. ANÍBAL COY, DO RODRIGO NUÑEZ MD CM:NATASHA [phone] ANÍBAL COY DO 07/09/17 0508 interface
--- NOTE | ~2017-07-01 | PR ---
[place], [place] PROGRESS NOTE NAME: [facility]OTT [id number] UNIT #: [id number] ROOM: 530 DOCTOR: AFSANEH PHILLIPS MD BIRTHDATE: [birth year] DOS: 07/06/2017 SUBJECTIVE: The patient is doing much better. He is sitting in the chair. PHYSICAL EXAMINATION: GENERAL: He is awake, alert, and responsive. VITAL SIGNS: Blood pressure 150/79, respirations 18, pulse 89, temperature 97.9. HEENT: Normocephalic, atraumatic NECK AND THYROID: Supple. No JVD, thyromegaly, or lymphadenopathy. HEART: Normal S1, S2. Regular rate and rhythm. LUNGS: Clear to auscultation and percussion. ABDOMEN: Soft. Nontender, nondistended. Bowel sounds present. EXTREMITIES: Normal ROM. No clubbing. No edema. LABORATORY DATA: Sodium 141, potassium 4.2, chloride 107, bicarbonate 27. EGFR is more than 40-60. White count 9.6, hemoglobin 9.2, hematocrit 27.8, platelet count of 26,000. ASSESSMENT: 1. Stage IV non-small cell lung cancer, status post chemotherapy. 2. Pneumonia. 3. Urinary tract infection. 4. Stage 2 pressure ulcer of the buttock. 5. Anemia of neoplastic disorder. PLAN: He had a PET scan done, PET scan depending on further intervention. In the meantime, we will continue antibiotics and anticoagulation for his bilateral DVTs. Ample time was given to the patient to ask me questions and her sister, also to put extensive bilateral leg DVT. AFSANEH PHILLIPS MD CM:PNTRANS [phone] AFSANEH PHILLIPS MD 07/11/17 1422 interface
--- NOTE | ~2017-07-01 | PR ---
[place], [place] PROGRESS NOTE NAME: MAURICIO MCDERMOTT [facility] #: [id number] UNIT #: [id number] ROOM: [facility] DOCTOR: ROBERT FRANCO MD BIRTHDATE: [birth year] DOS: SUBJECTIVE: Mauricio Mcdermott has been admitted to the hospital yesterday evening from the group home with history of feeling very weak, hypotensive, tachycardia in hypotensive shock and due to sepsis, he came to Emergency Department from where he has been admitted to the ICU with history of sepsis and hypotension, tachycardia, chest pain, difficulty in breathing, confused mental status, urinary tract infection, urosepsis, metastatic CA in the bones primary in the lungs and pneumonia and stage 2 pressure ulcer of the buttock, COPD and pleuritic pain and dehydration, osteoarthritis and osteoporosis, BPH, vitamin D deficiency, severe protein-calorie malnutrition and chemotherapy-induced lung disease and the patient is feeling very weak and not responding to questions very badly except telling that I am hurting everywhere and ultrasound of the both legs shows that the patient is having deep vein thrombosis of both lower limbs and for that, he is being taken for CTA of the lungs for further investigation whether he has pulmonary embolism or not. Urine culture and sensitivity showed gram-negative and gram-positive bacteria both sensitive and detailed information not yet available. Vitamin B12 level is normal and folic acid is normal and vitamin D is low, hemoglobin A1c is 5.4. CBC showed hypochromic anemia with hemoglobin of 7.83, hematocrit 22.9, 98% neutrophils, 2% monocytes and his platelet count is also low. Basic metabolic profile shows glucose 187 with possibly due to IV and chloride is 109, calcium is 7.9. Lipid profile is normal. TSH level has been 2.6 slightly lower than expected value. Troponin level is normal. CT scan of the abdomen shows possible metastatic CA in the abdomen and the bladder and with also metastasis in the bones. Flu test is negative. OBJECTIVE: VITAL SIGNS: His blood pressure is , pulse is 112, respirations 22, temperature 97.6. HEART: Tachycardic. LUNGS: Showing few rhonchi with increased expiration with decreased breath sounds heard at both the bases. ABDOMEN: Showing ill-defined tenderness. There is no distention. Bowel sounds are present, having some edema of the legs. His prognosis seemed to be very, very poor due to multiple medical problems, advanced malignancy, severe COPD and having deep vein thrombosis and septic shock. [place], [place] PROGRESS NOTE NAME: MAURICIO MCDERMOTT UNIT #: [id number] ROOM: [facility] DOCTOR: ROBERT FRANCO MD BIRTHDATE: [birth year] ROBERT FRANCO MD CM:PNTRANS [phone] ROBERT FRANCO MD 07/03/17136 interface
--- NOTE | ~2017-07-01 | PR ---
[place], [place] PROGRESS NOTE NAME: SUKHDEV MCDERMOTT UNIT #: [id number] ROOM: 530 DOCTOR: RODRIGO RODAS MD BIRTHDATE: [birth year] DOS: 07/14/2017 SUBJECTIVE: The patient remains in the hospital. The patient at this time noted with changes in the respiratory status. Denies symptoms of coughing or increased sputum expectoration. There were symptoms of chest pain noted. The patient has not been noted with any hemodynamic instability. He has not been noted with any symptoms of hemoptysis. OBJECTIVE: VITAL SIGNS: For the patient, which was recorded showed the temperature noted as normal. The respiratory rate recorded as 17, heart rate of 96, blood pressure 120/82. Pulse oxygen saturation noted on 3 L nasal cannula 97% oxygen saturation. HEENT: Shows head was atraumatic. Eyes nonicterus. NECK: Supple. CARDIOVASCULAR: S1, S2 is audible. LUNGS: The patient was noted without any wheezing. There were no crackles present. ABDOMEN: Soft, nontender. EXTREMITIES: Show persistent edema. LABORATORY DATA: CBC today, platelet count 26,000, hemoglobin 8.3 and hematocrit 25.1. BMP - normal BUN and creatinine. INR noted 3.3, which is therapeutic. IMPRESSION: The patient has currently been noted stable at the present time without any ongoing acute pulmonary symptoms at this time. The patient has been completing treatment for the acute pneumonia. The respiratory status remains stable. INR noted in the upper high therapeutic range. Bilateral deep venous thrombosis was noted. Advanced metastatic squamous cell cancer. PLAN OF THERAPY: No changes in the plan at this time, would be continued. The previous treatment for the patient as previously in progress will be continued. Discontinuation of the antibiotic by tomorrow would be considered. [place], [place] PROGRESS NOTE NAME: SUKHDEV MCDERMOTT UNIT #: [id number] ROOM: 530 DOCTOR: RODRIGO RODAS MD BIRTHDATE: [birth year] RODRIGO NUÑEZ MD CM:PNTRANS [id number] RODRIGO LUCIANO MD 07/14/17 2253 interface
--- NOTE | ~2017-07-01 | EKG ---
[place], [place] ELECTROCARDIOGRAM REPORT NAME: SUKHDEV MCDERMOTT UNIT #: [id number] ROOM: [facility] DOCTOR: CELINA CLARKE,CHER BIRTHDATE: [birth year] DOS: 07/01/2017 TIME: 2154 hours. IMPRESSION: 1. Sinus tachycardia. 2. Left atrial enlargement. 3. Possible old anterior infarction. CHER PATRICK MD CM:EKGRPT:ELECTROCARDIOGRAM REPORT 1410 1702 CHER PATRICK MD
--- NOTE | ~2017-07-01 | PR ---
[place], [place] PROGRESS NOTE NAME: SUKHDEV MCDERMOTT UNIT #: [id number] ROOM: 506 DOCTOR: ANNELIESE ANÍBAL BIRTHDATE: [birth year] DOS: 07/07/2017 SUBJECTIVE: The patient is seen and examined at bedside. The patient is sitting upright in bed in no acute distress. The patient reports that he continues to feel better, mild shortness of breath continues with some mild expiratory wheezing. OBJECTIVE: VITAL SIGNS: Temperature 97.5, pulse is 81, respirations 18, blood pressure is 155/68, pulse ox is 100% on 2 liters nasal cannula. GENERAL APPEARANCE: The patient is alert, awake and oriented times 3, no acute distress. HEENT: Eyes are clear. No injection. Nares are patent. Mucous membranes are moist. NECK: Supple, nontender. CARDIOVASCULAR: Regular rate and rhythm, no murmurs, gallops or rubs. PULMONARY: Clear to auscultation. No wheezes, rales or rhonchi. ABDOMEN: Soft, nontender with positive bowel sounds. LABORATORY DATA: White count 11.0, hemoglobin 9.7, hematocrit 29.5, platelets count is 16, sodium 140, potassium 4.4, chloride 106, carbon dioxide 28, BUN 27, creatinine 0.86, glucose 134, calcium 8.5. Liver enzymes normal. Albumin 1.8. Coagulation INR 1.8. Urine culture positive for Morganella morganii. Flu, MRSA and blood cultures remain negative. IMPRESSION: 1. Acute pneumonia with nonspecific interstitial pneumonitis, may be secondary to Keytruda. 2. Subtherapeutic INR. 3. Acute respiratory failure. 4. Leukocytosis. 5. Severe debility. 6. Bilateral deep vein thrombosis of the bilateral lower extremities. TREATMENT PLAN: Continue with current dose of steroids, bronchodilators and supportive care. The patient continues to improve. Thrombocytopenia is being monitored by Dr. Tilley. No change from a pulmonary standpoint. The patient remains stable from a pulmonary standpoint. We will continue to follow. ANÍBAL COY DO [place], [place] PROGRESS NOTE NAME: SUKHDEV MCDERMOTT UNIT #: [id number] ROOM: [facility] DOCTOR: ANÍBAL COY DO BIRTHDATE: [birth year] RODRIGO NUÑEZ MD CM:NATASHA [id number] ANÍBAL COY DO 07/07/17 1336 interface
--- NOTE | ~2017-07-01 | PR ---
[place], [place] PROGRESS NOTE NAME: SUKHDEV MCDERMOTT [facility] #: [id number] UNIT #: [id number] ROOM: 506 DOCTOR: JOAQUIN LUCIANO MD,RODRIGO BIRTHDATE: [birth year] DOS: 07/06/2017 The patient was seen and examined on 07/06/2017 with [id number] encounter. History was confirmed. Physical examination was performed. All the labs were reviewed. Assessment and management was personally completed and the note done by the medical reviewer was approved as well. SUBJECTIVE: The patient was comfortably resting in the Intensive Care Unit at this time, now noted with vasopressor therapy, heart rate was noted normal sinus rhythm, less than 100. The patient denies symptoms of chest pain, hemoptysis, or headache. Denies symptoms of wheezing. Denies symptoms of fever or chills. PHYSICAL EXAMINATION: VITAL SIGNS: Reviewed for the patient noted as normal temperature, respiratory rate 18, heart rate of 89, blood pressure 150/79-143/77. The pulse oxygen saturation on 3 liters nasal cannula 100% saturation recorded. HEENT: Head was atraumatic. Eyes nonicterus. NECK: Supple. CARDIOVASCULAR: S1, S2 audible. LUNGS: The patient was noted with crackles in the left upper lung anteriorly. There was no wheezing heard. ABDOMEN: Soft, nontender. EXTREMITIES: The patient was noted with resolution of previous edema. SKIN: Noted as dry. CENTRAL NERVOUS SYSTEM: The patient was noted without any focal deficit. MUSCULOSKELETAL: Without any acute deformities. LABORATORY DATA: Reviewed for the patient. PTT was noted as 40 this morning. The PT/INR of the patient was noted as 2.4, which is therapeutic. The CMP of the patient on 07/06/2017, BUN 28, creatinine was normal. ____ 1.6 . CBC this morning; WBC count was normal, hemoglobin 9.2, hematocrit 27.8, and platelet count 26,000. IMPRESSION: 1. The patient with acute pneumonia with nonspecific interstitial kind, most likely related to the pulmonary toxicity related to Keytruda. 2. The patient with noted therapeutic INR, was treated with argatroban, which was discontinued at 7:00 a.m. this morning as the overlap for the patient was done with use of the Coumadin until therapeutic INR needed for the patient from the last 24 hours. 3. Acute respiratory failure, resolving as well. 4. Leukocytosis, improved. 5. Severe debility. 6. Bilateral deep venous thrombosis of the lower extremities. PLAN OF MANAGEMENT: The dose of Solu-Medrol was yesterday decreased to 60 mg b.i.d. Further reduction will be done tomorrow to 40 mg b.i.d. of Solu-Medrol use. Other supportive therapy, plan of management of the patient will be continued as in progress. Anticoagulation continued with monitoring of the INR to maintain a therapeutic level. Thrombocytopenia of the patient continued to [place], [place] PROGRESS NOTE NAME: SUKHDEV MCDERMOTT UNIT #: [id number] ROOM: 506 DOCTOR: JOAQUIN LUCIANO MD,RODRIGO BIRTHDATE: [birth year] be monitored related to his chemotherapy and other factors. All other supportive therapy, plan of management, and other care. The patient could be transferred from the Intensive Care Unit to the telemetry floor. RODRIGO NUÑEZ MD CM:PNTRANS [phone] RODRIGO LUCIANO MD 07/07/17 0234 interface
--- NOTE | ~2017-07-01 | PR ---
[place], [place] PROGRESS NOTE NAME: SUKHDEV MCDERMOTT [facility] #: [id number] UNIT #: [id number] ROOM: 530 DOCTOR: AFSANEH PHILLIPS MD BIRTHDATE: [birth year] DOS: 07/14/2017 SUBJECTIVE: The patient is doing better, he is alert and awake and responsive. OBJECTIVE: GENERAL: Pleasant gentleman in no apparent distress. VITAL SIGNS: Stable. Afebrile. REVIEW OF SYSTEMS HEENT: No trouble swallowing. No double vision. No loss of vision. No pain. ENT AND RESPIRATORY: No wheeze. No change in voice. No cough. No shortness of breath. No coughing up blood. No epistaxis. CARDIOLOGIC: No chest pain. No dizziness. No irregular heartbeat. No leg edema. No palpitations. No shortness of breath. HEMATOLOGIC AND LYMPH: No past transfusion. No fatigue. No loss of appetite. No easy bruising. GASTROENTEROLOGIC: No change in bowel habits. No vomiting blood. No abdominal cramping. No nausea. No vomiting. No diarrhea. No constipation. No blood in stool. MALE REPRODUCTIVE: No testicular pain. No penile discharge. MUSCULOSKELETAL: No back pain. No muscle pain or weakness. No tingling/numbness. UROLOGIC: No pain with urination. No difficulty urinating. No frequent urination. NEUROLOGIC: No burning pain in feet. No trouble with coordination. No loss of consciousness. No headache. No tingling/numbness. No memory loss. PHYSICAL EXAMINATION HEENT: Normocephalic, atraumatic NECK AND THYROID: Supple. No JVD, thyromegaly, or lymphadenopathy. HEART: Normal S1, S2. Regular rate and rhythm. LUNGS: Showed decreased breath sounds bilaterally. ABDOMEN: Soft. Nontender, nondistended. Bowel sounds present. EXTREMITIES: Normal ROM. No clubbing. No edema. LABORATORY DATA: ____ 6.3, hemoglobin 8.3, hematocrit 25.1, platelet count 26,000. Chemistries, glucose of 95, BUN 18, EGFR more than 60, sodium 136, potassium 4.5, chloride 100, bicarbonate 29, calcium 9.7. ASSESSMENT: 1. Metastatic cancer. 2. Anemia of neoplastic disorder. 3. Pneumonia. 4. Thrombocytopenia. 5. Bilateral deep venous thrombosis. PLAN: The platelets are stable. His hemoglobin and hematocrit is decreasing. We will keep a close watch at this time and start taking further, then may need packed RBC. In the meantime, family will be coming for the code status discussion. I had detailed ample time given to ask questions. [place], [place] PROGRESS NOTE NAME: SUKHDEV MCDERMOTT UNIT #: [id number] ROOM: [facility] DOCTOR: AFSANEH PHILLIPS MD BIRTHDATE: [birth year] AFSANEH PHILLIPS MD CM:PNTRANS [phone] AFSANEH PHILLIPS MD 07/15/17 0156 interface
--- NOTE | ~2017-07-01 | PR ---
[place], [place] PROGRESS NOTE NAME: [id number] UNIT #: [id number] ROOM: [facility] DOCTOR: MAGDALENA CLARKE [facility],CORTEZ BIRTHDATE: [birth year] DOS: 07/05/2017 SUBJECTIVE: The patient is now converted to sinus rhythm. Optimize the medications post IVC filter. At that time, the rate was 160-200. Atrial fibrillation with rapid ventricular response, now sinus rhythm, stable rate at 90 and afebrile, temperature is 98.6. Denies any chest pain. No dyspnea. No syncope or presyncope. OBJECTIVE: VITAL SIGNS: Stable. Blood pressure 136/86, heart rate 90, respiratory rate 20, afebrile. SKIN: Warm. Not diaphoretic. Color is good. No cyanosis. HEENT: Not dyspneic. No tachypnea. No jugular venous distention noted. EXTREMITIES: Right groin unremarkable with the IVC filter insertion site. LUNGS: Diminished breath sounds at the bases. HEART: S1, S2. ABDOMEN: Soft. LABORATORY DATA: Hemoglobin is better at 9.3 and platelet count is 27,000 is low. The patient is on Coumadin therapy. Electrolytes are normal. GFR is good. Creatinine 0.94. INR is 2.8, optimal. Anticoagulation for the deep vein thrombosis. Chest x-ray shows patchy multifocal bilateral air space disease in the lung bases and left upper lobe along with stable large mass in the right mid zone. The patient is getting chemotherapy for lung cancer what I understood. The patient is hemodynamically stable and rate is stable, now sinus and converted to sinus rhythm after medications. We will continue the current therapy. CORTEZ NICHOLS MD CM:PNTRANS [phone] CORTEZ NICHOLS MD [facility] 07/05/17 1816 interface
--- NOTE | ~2017-07-01 | PR ---
[place], [place] PROGRESS NOTE NAME: SUKHDEV MCDERMOTT [facility] #: [id number] UNIT #: [id number] ROOM: 530 DOCTOR: AFSANEH PHILLIPS MD BIRTHDATE: [birth year] DOS: 07/07/2017 SUBJECTIVE: The patient is doing much better. He is awake and alert. REVIEW OF SYSTEMS: HEENT: No trouble swallowing. No double vision. No loss of vision. No pain. ENT AND RESPIRATORY: No wheeze. No change in voice. No cough. No shortness of breath. No coughing up blood. No epistaxis. CARDIOLOGIC: No chest pain. No dizziness. No irregular heartbeat. No leg edema. No palpitations. No shortness of breath. HEMATOLOGIC AND LYMPH: No past transfusion. No fatigue. No loss of appetite. No easy bruising. GASTROENTEROLOGIC: No change in bowel habits. No vomiting blood. No abdominal cramping. No nausea. No vomiting. No diarrhea. No constipation. No blood in stool. MALE REPRODUCTIVE: No testicular pain. No penile discharge. MUSCULOSKELETAL: No back pain. No muscle pain or weakness. No tingling/numbness. UROLOGIC: No pain with urination. No difficulty urinating. No frequent urination. NEUROLOGIC: No burning pain in feet. No trouble with coordination. No loss of consciousness. No headache. No tingling/numbness. No memory loss. PHYSICAL EXAMINATION: GENERAL: Pleasant gentleman in no apparent distress. VITAL SIGNS: Stable. He is afebrile. HEENT: Normocephalic, atraumatic NECK AND THYROID: Supple. No JVD, thyromegaly, or lymphadenopathy. HEART: Normal S1, S2. Regular rate and rhythm. LUNGS: Clear to auscultation and percussion. ABDOMEN: Soft. Nontender, nondistended. Bowel sounds present. EXTREMITIES: Normal ROM. No clubbing. No edema. LABORATORY DATA: White count of 11.0, hemoglobin 9.7, hematocrit 29.5, and platelet count ____. Chemistries: Glucose 124, BUN 27. EGFR more than 60, sodium 140, potassium 4.4, chloride 106, bicarbonate 28, total protein 4.9, SGOT 22, SGPT 26, and alkaline phosphatase 94. ASSESSMENT: 1. Metastatic lung cancer. 2. Thrombocytopenia. 3. Anemia of neoplastic disorder. 4. Sepsis. 5. Stage 2 pressure ulcer of the buttock. 6. Bilateral lower extremity deep vein thrombosis. PLAN: He will be getting 6 units of platelets. ____ continued on anticoagulation with Coumadin. I reviewed the records. He did not get a PET scan, which will be rescheduled once he is discharged. Depending on that further planning will be done. [place], [place] PROGRESS NOTE NAME: SHARRONSUKHDEV L UNIT #: [id number] ROOM: [facility] DOCTOR: AFSANEH PHILLIPS MD BIRTHDATE: [birth year] AFSANEH PHILLIPS MD CM:PNTRANS [phone] AFSANEH PHILLIPS MD 07/07/17 1808 interface
--- NOTE | ~2017-07-01 | PR ---
[place], [place] PROGRESS NOTE NAME: SUKHDEV MCDERMOTT UNIT #: [id number] ROOM: 530 DOCTOR: JOAQUIN LUCIANO MD,RODRIGO BIRTHDATE: [birth year] DOS: 07/11/2017 SUBJECTIVE: The patient was noted comfortable at this time, resting on his bed, eating his breakfast. Remains mostly bedbound. He has not been noted with any hemodynamic instability or acute distress. The temperature is noted normal. OBJECTIVE: VITAL SIGNS: Showed normal temperature, respirations 18, heart rate 89, blood pressure 106/63. Pulse ox saturation on 2 liters nasal cannula 95% saturation. HEENT: Showed no acute change. NECK: Supple. CARDIOVASCULAR: S1, S2 audible. LUNGS: Noted without any wheezing or crackles. ABDOMEN: Soft, nontender. EXTREMITIES: Showed 2+ pitting edema in bilateral lower extremities. SKIN: Visible skin, no lesions or rash except dryness of the skin. CENTRAL NERVOUS SYSTEM: Intact. No focal deficit. MUSCULOSKELETAL: Without any acute deformities. LABORATORY DATA: INR today was noted at 1.7, which is subtherapeutic. Chest x-ray of the patient that was ordered yesterday was reviewed that does not show any acute pulmonary infiltration. Chronic mass in the right upper lung remains the same. The CBC was obtained yesterday, noted mild anemia with platelet count 33,000. The CBC of the patient this morning shows platelet count 27,000, WBC count normal, hemoglobin 9.6 and hematocrit 30.5. Urinalysis was ordered yesterday that shows 3+ blood and 4+ bacteria. IMPRESSION: 1. Possibility of urinary tract infection, low grade fever. 2. Tachycardia seemed to be improving. 3. Stable respiratory status with advanced metastatic squamous cell cancer. 4. Resolution of the pulmonary infiltration secondary to the toxicity from ____. 5. Severe debility. 6. Bilateral deep venous thromboses. 7. Thrombocytopenia. PLAN OF TREATMENT: Continue antibiotics, bronchodilators, monitor culture results. Continue on supportive plan of therapy and care for the patient as in progress. Usual care. Additional treatment changes will be made based on the progression of the illness. Supportive care. Usual medical management of therapies. [place], [place] PROGRESS NOTE NAME: SUKHDEV MCDERMOTT UNIT #: [id number] ROOM: 530 DOCTOR: RODRIGO RODAS MD BIRTHDATE: [birth year] RODRIGO NUÑEZ MD CM:PNTRANS 1311 [id number] RODRIGO LUCIANO MD 07/12/17 0023 interface
--- NOTE | ~2017-07-01 | CON ---
[place], [place] REPORT OF CONSULTATION NAME: SUKHDEV MCDERMOTT UNIT #: [id number] ROOM: 530 DOCTOR: STEVE RYAN,SEPTEMBER BIRTHDATE: [birth year] DOS: 07/02/2017 HISTORY OF PRESENT ILLNESS: The patient is an unfortunate 71-year-old male who was admitted from [facility] due to tachycardia, hypotension, reportedly febrile. He has been up to 100.7 here. He complains of pain all over, has cough. He is a very poor historian, does have some shortness of breath, gives the year as 2013 and said he was admitted from [place]. He is again rather confused, poor historian. History is obtained per review of the chart. He was found to be positive for DVTs in the bilateral lower extremities. An IVC filter is planned for tomorrow. The patient has non-small cell lung CA with extensive metastasis, for which he has been receiving chemotherapy, most recently he was receiving Keytruda under the auspices of Dr. Tilley. He had a CT of the abdomen and pelvis that was suggestive of pneumonia. He has extensive metastasis into his vertebrae as well as a renal lesion. He has extensive consolidation of the lungs on his CTA of his chest, possibly due to pneumonia. His urine culture has abundant gram-negative rods. He has Slater catheter in place. He also is having diarrhea and he states abdominal pain. He also complains of pain all over. He was here in May and was treated for methicillin-sensitive Staph epidermidis infection of his MediPort. He was followed by Dr. Emmanuel Harrison. He was discharged to [place] around June 01 on Ancef, which was to be completed on June 11. He still has his PICC line in. The MediPort was removed on May 30. ID is consulted for possible sepsis. PAST MEDICAL HISTORY: As above as well as BPH, chemo-induced thrombocytopenia. He has ____ chemo-induced lung disease, COPD, hypertension, GERD, epilepsy, CVA, hypercholesterolemia, osteoporosis, peripheral neuropathy, vitamin D deficiency, right knee surgery, cholecystectomy. SOCIAL HISTORY: He has now been chronically residing in [facility]. He quit smoking in February 2017. He smoked for many years, 2 packs of cigarettes per day. Only occasional alcohol use prior to his [facility] to the [facility]. No illicit drug use. FAMILY MEDICAL HISTORY: Both parents are , cause is unknown. ALLERGIES: No known drug allergies. Again, history is obtained per review of the chart as patient is very confused and a poor historian. LABORATORY DATA: Urine culture with abundant gram-negative rods. His blood cultures are negative thus far. MRSA screen is pending. Influenza screen is negative. WBC is 6.3, platelets 27. Vancomycin trough 13.1, BUN 24, creatinine 0.88. He has had urine submitted for Legionella and strep pneumo antigen which are pending. REVIEW OF SYSTEMS: Very limited. The patient again is quite confused, gives history as above. He does have lower extremity edema. Again, has Slater catheter in place and a PICC that has been in place since probably mid May when he was discharged from this hospital. Further review of systems is unobtainable, again the patient is quite confused. [place], [place] REPORT OF CONSULTATION NAME: SUKHDEV MCDERMOTT UNIT #: [id number] ROOM: [facility] DOCTOR: STEVE RYAN,SEPTEMBER BIRTHDATE: [birth year] CURRENT MEDICATIONS: Include Fosamax, argatroban, Lipitor, Flomax, mag ox, Levaquin, [place], aspirin, Protonix, vancomycin, Zosyn, Ultram, Tamiflu, Keppra, Mucinex, Neurontin, MiraLax powder, Percocet, Antivert, DuoNeb, morphine sulfate, Zofran, Tylenol. PHYSICAL EXAMINATION: VITAL SIGNS: Temperature 98.1, pulse 114, respirations 24, BP 119/55: GENERAL: A 71-year-old -Serbian male, in no acute distress. HEAD, EYES, EARS, NOSE AND THROAT: Normocephalic. No thrush. Tacky mucous membranes. LUNGS: Wet respirations, coarse bilaterally throughout, again ____ respirations are slightly labored. HEART: Regular rhythm. No murmur appreciated. Tachy. ABDOMEN: Soft, generalized tenderness, positive bowel sounds. EXTREMITIES: +2 edema, bilateral lower extremities. PICC in the right upper extremity. Dressing dry and intact. No signs of phlebitis. Slater catheter draining clear yellow urine. SKIN: Warm, dry, free of rashes. ASSESSMENT AND PLAN: Possible sepsis with concern for healthcare-associated pneumonia in a patient with non-small cell lung cancer with extensive metastasis including bone, possibly kidney. I would also given his current condition have to wonder about brain as well. We will continue the vancomycin and Zosyn, stop the Levaquin, stop the Tamiflu. Follow up on cultures and urinary antigens. The PICC line is at least a month old. We need to change it and culture the tip. Given the patient's thrombocytopenia, etc., we will hold off on removing the PICC given if blood cultures remain sterile at 24 hours; however, if any blood cultures return positive, he does need to have it removed. Once he is more stabilized, we will consider removing the PICC and placing another one or leaving it out if access is no longer necessary. MICHAEL WILSON CNP KATIE PINEDA MD CM:CONSTR:REPORT OF CONSULTATION 1728 07/07/17 [id number] interface
--- NOTE | ~2017-07-01 | PR ---
[place], [place] PROGRESS NOTE NAME: SUKHDEV MCDERMOTT UNIT #: [id number] ROOM: 530 DOCTOR: JOAQUIN LUCIANO MD,RODRIGO BIRTHDATE: [birth year] DOS: 07/12/2017 PULMONARY PROGRESS NOTE SUBJECTIVE: He has been noted comfortable at this time without any acute distress. There were no symptoms of coughing or sputum expectoration noted. The patient has not been noted symptoms of hemoptysis. OBJECTIVE: VITAL SIGNS: The vital signs for the patient, which was recorded shows the temperature of the patient noted as normal, the respiratory rate 18, heart rate of 94, and blood pressure 98/50-80/50. The pulse oxygen saturation of the patient recorded as 98% on 3 liters nasal cannula. HEENT: Examination shows no acute change. NECK: Supple. CARDIOVASCULAR: S1, S2 audible. LUNGS: Shows basilar crackle. No wheezing. ABDOMEN: Soft, nontender. EXTREMITIES: Still shows significant edema of the lower extremity. LABORATORY DATA: CBC today, platelet count 24,000, hemoglobin 8.3, and hematocrit 25.6. Urine culture, no bacterial growth. Preliminary blood culture, which was taken on 07/10/2017 showed no bacterial growth as well. Chest x-ray, one view of the patient that was done shows small right pleural fluid without any acute pulmonary infiltration noted from the chest x-ray that was taken yesterday on this patient. IMPRESSION: 1. The patient has thrombocytopenia. 2. Deep venous thrombosis, lower extremity. 3. History of lung cancer. 4. Pulmonary infiltration noted in the left upper lung, whether acute pneumonia of the patient bacterial or not at this time was unclear. 5. Pulmonary toxicity of the patient related to the Keytruda. PLAN OF TREATMENT: Continue antibiotic for the suspected pneumonia in the left upper lobe. Complete the treatment. Continue Solu-Medrol for this patient with the reduction of the dose to 30 mg Solu-Medrol daily. Completion of the antibiotic at least for 7 days total of the patient's time started for the acute pneumonia management. Supportive care, other therapy, and plan of care. Additional treatment changes to be made for this patient based on the progression of the illness. Usual care. [place], [place] PROGRESS NOTE NAME: SUKHDEV MCDERMOTT UNIT #: [id number] ROOM: 530 DOCTOR: RODRIGO RODAS MD BIRTHDATE: [birth year] RODRIGO NUÑEZ MD CM:NATASHA [id number] RODRIGO LUCIANO MD 07/13/17 0042 interface
--- NOTE | ~2017-07-01 | PR ---
[place], [place] PROGRESS NOTE NAME: SUKHDEV MCDERMOTT [facility] #: [id number] UNIT #: [id number] ROOM: 530 DOCTOR: JOAQUIN LUCIANO MD,RODRIGO BIRTHDATE: [birth year] DOS: 07/07/2017 SUBJECTIVE: The patient was independently seen and examined with [id number] encounter, history was confirmed. Physical examination personally performed. Labs reviewed. Assessment and management of today's note was personally completed, note done by the medical coordinator pesticide use was approved. The patient continue to remains in the hospital. The patient has been noted comfortable at this time without any distress. Continue anticoagulation with Coumadin for bilateral extensive deep venous thrombosis of lower extremity, but not noted symptoms of chest pain, hemoptysis, hematuria or hematochezia. PHYSICAL EXAMINATION: VITAL SIGNS: For the patient was reviewed and noted essentially as normal vital signs. The pulse oxygen saturation on 2 liters, maintaining 97-100% saturation. HEENT: Noted without any acute change. CARDIOVASCULAR: S1, S2 audible. LUNGS: Clear. ABDOMEN: Soft, nontender. EXTREMITIES: Shows resolving edema. LABORATORY DATA: CBC today: WBC count 11,000, platelet count 16,000, hemoglobin 9.7, hematocrit 29.5. PT/INR noted at 1.8, which is subtherapeutic. Blood cultures, no bacterial growth. IMPRESSION: Bilateral deep venous thrombosis, lower extremity IVC filter in place with current severe thrombocytopenia as well. History of advanced metastatic squamous cell cancer. PLAN OF MANAGEMENT: No change in the plan of therapy at this time will be recommended. Continue current therapy, plan of care at this time as in progress with other treatment and care. Usual treatment. Supportive plan of management. RODRIGO NUÑEZ MD CM:PNTRANS [id number] RODRIGO LUCIANO MD 07/08/17 0545 interface
--- NOTE | ~2017-07-01 | PR ---
[place], [place] PROGRESS NOTE NAME: SUKHDEV MCDERMOTT [facility] #: [id number] UNIT #: [id number] ROOM: [facility] DOCTOR: JOAQUIN LUCIANO MD,RODRIGO BIRTHDATE: [birth year] DOS: 07/04/2017 PULMONARY PROGRESS NOTE SUBJECTIVE: He has been noted quite comfortable at this time without any distress. He has cardiac arrhythmia. Tachycardia has been decreased. The patient was continued on intravenous argatroban drip as well with the PTT well-maintained. He was noted with anemia with hemoglobin recorded as 6.8 with hematocrit 22.7. There was no obvious gastrointestinal bleeding that was visible. The patient's heart rate was noted well controlled with less than 100. The hypotension of the patient was also noted well controlled, currently normal blood pressure. He had not been reported symptoms of acute shortness of breath, coughing, chest pain, sputum expectoration or hemoptysis. Denies dizziness, headache. The patient was noted mostly bedbound. PHYSICAL EXAMINATION: VITAL SIGNS: For the patient which has been recorded showed normal temperature, respiratory rate 21, heart rate 83, blood pressure of 110/53. The pulse oxygen saturation recorded as 94% saturation with the nasal cannula. HEENT: Examination shows no acute change. NECK: Supple. CARDIOVASCULAR: S1, S2 audible. LUNGS: Noted without any wheezing or crackles. Breaths are noted mild to moderate decreased bilaterally. ABDOMEN: Soft, nontender. EXTREMITIES: Reduction of the edema. SKIN: Visible skin. Dryness of the skin of lower extremities, otherwise normal. MUSCULOSKELETAL: No deformities. CENTRAL NERVOUS SYSTEM: The patient is intact. LABORATORY DATA: The patient's CBC today: normal WBC count and platelet count 30,000 remains stable from yesterday, hemoglobin 6.8, hematocrit 22.2. 99% platelets were noted. The BMP of the patient this morning, BUN 24, creatinine 0.69. Calcium was 8.4. IMPRESSION: 1. Stable respiratory status, status post IVC filter insertion for extensive bilateral deep venous thrombosis. 2. Lung malignancy, squamous cell carcinoma. 3. Possibility of pulmonary involvement with nonspecific interstitial pneumonitis secondary to chemotherapy drug as Keytruda will be considered. 4. Anemia, multifactorial. 5. Thrombocytopenia that remains stable. PLAN OF MANAGEMENT: The patient has been ordered 2 packed RBC blood transfusion. Continue the vasopressor for the hypotension management, which has been noted well maintained with the use of the norepinephrine. Avoid excessive fluid administration. Supportive care therapy, plan of management previously. Usual care with additional treatment changes to be made based on the progression [place], [place] PROGRESS NOTE NAME: SUKHDEV MCDERMOTT UNIT #: [id number] ROOM: [facility] DOCTOR: RODRIGO RODAS MD BIRTHDATE: [birth year] of the illness. RODRIGO NUÑEZ MD CM:PNYRIS [phone] [id number] RODRIGO LUCIANO MD 07/05/17221 interface
--- NOTE | ~2017-07-01 | PR ---
[place], [place] PROGRESS NOTE NAME: SUKHDEV MCDERMOTT [facility] #: [id number] UNIT #: [id number] ROOM: [facility] DOCTOR: JOAQUIN LUCIANO MD,RODRIGO BIRTHDATE: [birth year] DOS: 07/05/2017 PULMONARY PROGRESS NOTE SUBJECTIVE: He had been noted comfortable at this time. The blood pressure of the patient noted at this time without any difficulty. He has not been reported any symptoms of acute shortness of breath at rest. There was no pain described acutely in any part of the body, previous pain medication was continued. He was continued on intravenous Argatroban drip for this patient. He has started on anticoagulation with Coumadin yesterday. INR were noted subtherapeutic, which has been done today. The patient has not been noted any acute chest pain or hemodynamic instability. Two packed RBC blood transfusion was given yesterday. The patient with appropriate increase hemoglobin and hematocrit was noted today. Denies symptoms of headache, nausea, vomiting, or lower extremities pain. OBJECTIVE: VITAL SIGNS: Blood pressure was noted as 132/72-107/68. Respiratory recorded at 20, heart rate of 95-88, temperature was normal. Intake of 1236 ml and output 1900 mL. The pulse oxygen saturation with 3 liters cannula maintain a saturation at rest is 98% saturation. HEENT: Examination shows head was atraumatic. Eyes nonicterus. Oral mucosa moist. NECK: Supple. CARDIOVASCULAR: S1, S2 audible. LUNGS: The patient was noted without any wheeze or crackles at present time. ABDOMEN: Soft, nontender. EXTREMITIES: The patient was noted with continued resolving edema and skin dryness without lesions or ulcers. CENTRAL NERVOUS SYSTEM: The patient remains the same as previously without any gross focal deficit. MUSCULOSKELETAL: Without any acute deformities. LABORATORY DATA: One view chest x-ray of the patient that was done today for the patient was reviewed. No additional new findings were noted. Infiltration patchy noted in the left upper lung for the patient as well in the right lower lobe with pleural base mass was noted in the right upper lung remains unchanged. The PICC line noted in place in the right arm. The CBC of the patient that was done today shows WBC count remains normal, hemoglobin 9.3, hematocrit 28.3, post-blood transfusion, and platelet count of 27,000. PT and PTT today, the INR were noted 2.6, PTT of 42. CMP of the patient this morning, BUN 28 and creatinine was normal. Chloride of 108. IMPRESSION: 1. The patient who has been currently noted with leukocytosis related to use of the corticosteroids. 2. The patient with nonspecific interstitial pneumonitis with acute pneumonia or related to most likely ____. 3. The patient with metastatic advanced small cell lung cancer. 4. Therapeutic INR for the patient was noted. The patient with bilateral [place], [place] PROGRESS NOTE NAME: SUKHDEV MCDERMOTT UNIT #: [id number] ROOM: [facility] DOCTOR: JOAQUIN LUCIANO MD,RODRIGO BIRTHDATE: [birth year] extensive deep venous thrombosis with inferior vena cava filter. 5. Anemia, status post blood transfusion. PLAN OF MANAGEMENT: Monitor leukocytosis. Solu-Medrol was decreased to 60 mg b.i.d. today. Discontinuation of the Argatroban for the patient tomorrow if the INR is maintained in the therapeutic range. Other supportive plan and management previously will be continued. Usual care. Continue the patient's oxygen supplementation and pain management of the patient as well. Usual care, other supportive plan of therapy, and care plan. Overlapping for the patient will be done with Argatroban and Coumadin for this patient for the first 24 hours and then after that the Argatroban will be discontinued. Continue maximizing nutritional status. Usual care. Atrial fibrillation, currently noted with a controlled range for this patient, which has been already managed by Dr. Hernández. RODRIGO NUÑEZ MD CM:PNTRANS [phone] RODRIGO LUCIANO MD 07/06/17340 interface
--- NOTE | ~2017-07-01 | PR ---
[place], [place] PROGRESS NOTE NAME: SUKHDEV MCDERMOTT [facility] #: [id number] UNIT #: [id number] ROOM: [facility] DOCTOR: JOAQUIN LUCIANO MD,RODRIGO BIRTHDATE: [birth year] DOS: 07/03/2017 SUBJECTIVE: The patient was continued on intravenous argatroban with a continuous infusion. The PTT was noted well maintained at therapeutic range. Current dose of argatroban intravenously. CTA of the chest was also completed yesterday. The patient has been consulted by Dr. Hernández. Successful IVC filter insertion was also done. He has not been noted any distress this morning. The patient was noted more awake this morning. There were no symptoms of chest pain or any abdominal pain. The patient has not been noted any symptoms of hematuria. There were symptoms of nausea, vomiting, hematemesis, melena, or hematochezia. The patient has not been noted acute pain, which has been noted previously. The patient was noted well controlled with current management, plan of pain. He had not been noted with any acute hemodynamic instability until this morning as the patient has an IVC filter insertion. He was noted acute onset of atrial fibrillation with rapid ventricular response at that time. He has been receiving intravenous Cardizem for the medical management of the atrial fibrillation with rapid ventricular response. OBJECTIVE: VITAL SIGNS: For the patient which were recorded. The patient showed the temperature remains essentially normal. Respiratory 20-22, heart rate 94-167 with atrial fibrillation, rapid ventricular response, blood pressure 111/67-95/65. Intake of 1175, output 2050 mL. Pulse oxygen saturation with 4 liter nasal cannula for the patient simple facemask done later noted 94%-97% saturation. HEENT: Examination shows head was atraumatic. Eyes nonicterus. NECK: Supple. CARDIOVASCULAR: S1, S2 is audible. LUNGS: Noted. Scattered crackles of the lungs bilaterally. ABDOMEN: Soft, nontender. EXTREMITIES: The patient was noted without any clubbing. Edema of both lower extremities noted as previously unchanged from yesterday. SKIN: Noted dryness of the skin. MUSCULOSKELETAL: No deformities. CENTRAL NERVOUS SYSTEM: Mostly bed bound status, who was noted at this time, but there was no cross focal nature neurologic deficits noted. LABORATORY DATA: The PTT for the patient this morning was 45.9 and later on the patient at 7.46-50.5 both noted therapeutic. CBC of the patient this morning, hemoglobin 7.4, hematocrit 23.6, WBC count normal, platelet count of 130,000, platelet count noted partially improved from yesterday, 27,000-30,000 today. Culture of the urine noted heavy growth of Morganella morganii noted sensitive with IV Zosyn. The blood culture was noted no bacterial growth for the patient taken on the of this month. CTA of the chest was personally reviewed that shows a mixed picture about the malignant process. The patient was noted with reduction of the paraspinal mass, but increase in the right upper lung mass. Significant osseous metastases were noted with involvement of the spinal area as well. A new finding for the patient, which was noted with the presence of bilateral ground glass opacity was known as NSIP infiltration involving the patchy involvement in the left upper lobe as well as in the periphery of the [place], [place] PROGRESS NOTE NAME: SUKHDEV MCDERMOTT UNIT #: [id number] ROOM: [facility] DOCTOR: ALIZA RODAS MDULAM BIRTHDATE: [birth year] right lower lobe with some nodular component and other small patchy infiltration noted in other areas of the lung was also seen. IMPRESSION: 1. The patient who has been noted with current acute respiratory failure with the urinary tract infection. 2. Bilateral extensive deep venous thrombosis of lower extremity without any evidence of pulmonary embolism, which was confirmed with a CT of the chest. 3. Thrombocytopenia related to underlying malignancy and multifactorial as well. 4. The patient with chemotherapy. The patient noted with a Keytruda with current NSIP finding. Consider possible pulmonary toxicity related to that as a possibility. 5. Advanced lung cancer, squamous cell with mixed picture and improvement in some of the areas and worsening of the others was also noted as significance unknown. 6. Adequate PTT for the patient was maintained with the use of the intravenous argatroban infusion. 7. Severe debility. 8. Urinary tract infection, gram-negative infection was also noted and appropriately treated. PLAN OF MANAGEMENT: At this time for possibly pulmonary toxicity related to Keytruda. I will be starting the Solu-Medrol 40 mg IV b.i.d. He will be continued on antibiotics with reduction in spectrum antibiotic, especially discontinuation of the vancomycin for this patient if there would be no cultures of the patient's blood or other area support the use. The bronchodilator will be continued as well. The Solu-Medrol has been started at 60 mg q.8 h. Additional treatment changes to be maintained for the patient based on progression of illness. Monitor the hemodynamics. Also, atrial fibrillation with rapid ventricular response, which were noted today, continue to be treated with intravenous Cardizem. Monitoring of the PTT daily for this patient with intravenous argatroban. Monitor other systemic therapy for the patient as well. Monitor culture results closely. Additional treatment changes, continue be made on progression of the illness. Overall, prognosis of the patient remains very critical and guarded at this time. Discussion with the patient and family members about the code status and advance directives for the patient, especially if the patient required resuscitation. TIME SPENT: Total time, the patient pulmonary critical care evaluation and management today was 40 minutes. [place], [place] PROGRESS NOTE NAME: SHARRONSUKHDEV Parth UNIT #: [id number] ROOM: [facility] DOCTOR: RODRIGO RODAS MD BIRTHDATE: [birth year] RODRIGO NUÑEZ MD CM:NATASHA [phone] RODRIGO LUCIANO MD 07/03/17 2254 interface
--- NOTE | ~2017-07-01 | PR ---
[place], [place] PROGRESS NOTE NAME: SUKHDEV MCDERMOTT [facility] #: [id number] UNIT #: [id number] ROOM: 530 DOCTOR: AFSANEH PHILLIPS MD BIRTHDATE: [birth year] DOS: 07/16/2017 SUBJECTIVE: The patient is doing much better. He is awake, alert, and responsive. REVIEW OF SYSTEMS HEENT: No trouble swallowing. No double vision. No loss of vision. No pain. ENT AND RESPIRATORY: No wheeze. No change in voice. No cough. No shortness of breath. No coughing up blood. No epistaxis. CARDIOLOGIC: No chest pain. No dizziness. No irregular heartbeat. No leg edema. No palpitations. No shortness of breath. HEMATOLOGIC AND LYMPH: No past transfusion. No fatigue. No loss of appetite. No easy bruising. GASTROENEROLOGIC: No change in bowel habits. No vomiting blood. No abdominal cramping. No nausea. No vomiting. No diarrhea. No constipation. No blood in stool. MALE REPRODUCTIVE: No testicular pain. No penile discharge. MUSCULOSKELETAL: No back pain. No muscle pain or weakness. No tingling/numbness. UROLOGIC: No pain with urination. No difficulty urinating. No frequent urination. NEUROLOGIC: No burning pain in feet. No trouble with coordination. No loss of consciousness. No headache. No tingling/numbness. No memory loss. PHYSICAL EXAMINATION GENERAL: Pleasant gentleman in no apparent distress. VITAL SIGNS: Stable. Afebrile. HEAD, EARS, EYES, NOSE AND THROAT: Normocephalic, atraumatic NECK AND THYROID: Supple. No JVD, thyromegaly, or lymphadenopathy. HEART: Normal S1, S2. Regular rate and rhythm. LUNGS: Clear to auscultation and percussion. ABDOMEN: Soft. Nontender, nondistended. Bowel sounds present. EXTREMITIES: Normal ROM. No clubbing. No edema. IMPRESSION: 1. Metastatic lung cancer. 2. Chronic obstructive pulmonary disease. 3. Anemia of neoplastic disorder. 4. Bilateral deep vein thrombosis. PLAN: Overall his condition is guarded. He will be going to snf under hospice. I have discussed with family if any questions upon pain management. They can call me if the counts drop, then intervention discussed. Overall, his prognosis is poor. [place], [place] PROGRESS NOTE NAME: SUKHDEV MCDERMOTT UNIT #: [id number] ROOM: 530 DOCTOR: AFSANEH PHILLIPS MD BIRTHDATE: [birth year] AFSANEH PHILLIPS MD CM:NATASHA [id number] AFSANEH PHILLIPS MD 07/16/17 1352 interface
--- NOTE | ~2017-07-01 | PR ---
[place], [place] PROGRESS NOTE NAME: [facility]OTT [facility] [id number] UNIT #: [id number] ROOM: 530 DOCTOR: MAGDALENA CLARKE [facility],CORTEZ BIRTHDATE: [birth year] DOS: 07/14/2017 SUBJECTIVE: The patient denies any chest pain. No dyspnea. No syncope. OBJECTIVE: HISTORY: The patient is tachycardic and the patient has paroxysmal atrial fibrillation with rapid ventricular response ____ sinus rhythm. LUNGS: Diminished breath sounds at bases. HEART: S1, S2 regular. ABDOMEN: Soft. Color is good, not diaphoretic. EXTREMITIES: No cyanosis. Case discussed with Dr. Alvarez. PLAN: To adjust the medication optimally to control the heart rate, at the same time try to keep him in sinus rhythm. The patient is already on optimal medications at this time. Hemodynamically appears to be stable. CORTEZ NICHOLS MD CM:PNTRANS [phone] CORTEZ NICHOLS MD, FACC 07/15/17 1756 interface
--- NOTE | ~2017-07-01 | PR ---
[place], [place] PROGRESS NOTE NAME: SUKHDEV MCDERMOTT [facility] #: [id number] UNIT #: [id number] ROOM: 530 DOCTOR: AFSANEH PHILLIPS MD BIRTHDATE: [birth year] DOS: 07/13/2017 SUBJECTIVE: The patient is doing better. He is comfortable, alert and oriented. REVIEW OF SYSTEMS: HEENT: No trouble swallowing. No double vision. No loss of vision. No pain. ENT AND RESPIRATORY: No wheeze. No change in voice. No cough. No shortness of breath. No coughing up blood. No epistaxis. CARDIOLOGIC: No chest pain. No dizziness. No irregular heartbeat. No leg edema. No palpitations. No shortness of breath. HEMATOLOGIC AND LYMPH: No past transfusion. No fatigue. No loss of appetite. No easy bruising. GASTROENTEROLOGIC: No change in bowel habits. No vomiting blood. No abdominal cramping. No nausea. No vomiting. No diarrhea. No constipation. No blood in stool. MALE REPRODUCTIVE: No testicular pain. No penile discharge. MUSCULOSKELETAL: No back pain. No muscle pain or weakness. No tingling/numbness. UROLOGIC: No pain with urination. No difficulty urinating. No frequent urination. NEUROLOGIC: No burning pain in feet. No trouble with coordination. No loss of consciousness. No headache. No tingling/numbness. No memory loss. PHYSICAL EXAMINATION GENERAL: Pleasant gentleman, in no apparent distress. VITAL SIGNS: Stable. He is afebrile. HEENT: Normocephalic, atraumatic NECK AND THYROID: Supple. No JVD, thyromegaly, or lymphadenopathy. HEART: Normal S1, S2. Regular rate and rhythm. LUNGS: Clear to auscultation and percussion. ABDOMEN: Soft. Nontender, nondistended. Bowel sounds present. EXTREMITIES: Normal ROM. No clubbing. No edema. LABORATORY DATA: White count of 5.3, hemoglobin 7.0, hematocrit 21.9, MCV 100.0, platelet count 23,000. ASSESSMENT: 1. Anemia of neoplastic disorder. 2. Bilateral deep venous thrombosis. 3. Thrombocytopenia. 4. Metastatic lung cancer. PLAN: The patient will be getting 2 units of packed RBC. Continue present management including broad-spectrum antibiotics, etc. Discussed with the family in detail. [place], [place] PROGRESS NOTE NAME: SUKHDEV MCDERMOTT UNIT #: [id number] ROOM: 530 DOCTOR: AFSANEH PHILLIPS MD BIRTHDATE: [birth year] AFSANEH PHILLIPS MD CM:NATASHA [id number] AFSANEH HPILLIPS MD 07/13/17 2336 interface
--- NOTE | ~2017-07-01 | PR ---
[place], [place] PROGRESS NOTE NAME: [facility]OTT [facility] [id number] UNIT #: [id number] ROOM: 530 DOCTOR: AFSANEH PHILLIPS MD BIRTHDATE: [birth year] DOS: 07/11/2017 SUBJECTIVE: The patient is doing better. REVIEW OF SYSTEMS HEENT: No trouble swallowing. No double vision. No loss of vision. No pain. ENT AND RESPIRATORY: No wheeze. No change in voice. No cough. No shortness of breath. No coughing up blood. No epistaxis. CARDIOLOGIC: No chest pain. No dizziness. No irregular heartbeat. No leg edema. No palpitations. No shortness of breath. HEMATOLOGIC AND LYMPH: No past transfusion. No fatigue. No loss of appetite. No easy bruising. GASTROENTEROLOGIC: No change in bowel habits. No vomiting blood. No abdominal cramping. No nausea. No vomiting. No diarrhea. No constipation. No blood in stool. MALE REPRODUCTIVE: No testicular pain. No penile discharge. MUSCULOSKELETAL: No back pain. No muscle pain or weakness. No tingling/numbness. UROLOGIC: No pain with urination. No difficulty urinating. No frequent urination. NEUROLOGIC: No burning pain in feet. No trouble with coordination. No loss of consciousness. No headache. No tingling/numbness. No memory loss. PHYSICAL EXAMINATION: GENERAL: Pleasant gentleman in no apparent disorders. VITAL SIGNS: Stable, afebrile. HEENT: Normocephalic, atraumatic NECK AND THYROID: Supple. No JVD, thyromegaly, or lymphadenopathy. HEART: Normal S1, S2. Regular rate and rhythm. LUNGS: Clear to auscultation and percussion. ABDOMEN: Soft. Nontender, nondistended. Bowel sounds present. EXTREMITIES: Normal ROM. No clubbing. No edema. LABORATORY DATA: White count of 9.5, hemoglobin 9.6, hematocrit 30.0, and platelet count of 27,000. ASSESSMENT: 1. Metastatic lung cancer. 2. Anemia of neoplastic disorder. 3. Bilateral leg deep venous thrombosis. PLAN: Platelets are getting better. We will continue anticoagulation and follow the counts closely. If the hemoglobin and hematocrit drops, then further intervention. [place], [place] PROGRESS NOTE NAME: SUKHDEV MCDERMOTT UNIT #: [id number] ROOM: 530 DOCTOR: AFSANEH PHILLIPS MD BIRTHDATE: [birth year] AFSANEH PHILLIPS MD CM:PNTRANS [id number] [id number] AFSANEH PHILLIPS MD 07/12/17 0032 interface
--- NOTE | ~2017-07-01 | PR ---
[place], [place] PROGRESS NOTE NAME: SUKHDEV MCDERMOTT [facility] #: [id number] UNIT #: [id number] ROOM: [facility]- DOCTOR: ANÍBAL COY DO BIRTHDATE: [birth year] DOS: 07/06/2017 SUBJECTIVE: The patient is seen and examined at bedside. The patient was sitting upright in no acute distress. The patient reports that he feels well and has no new complaints at this time. The patient's breathing remains stable. No complaint of cough or shortness of breath. OBJECTIVE: VITAL SIGNS: Temperature 97.9, pulse is 89, respirations 18, blood pressure 150/79, pulse ox is 98% on 3 liters nasal cannula. LABS: CBC: White count 9.6, hemoglobin 9.2, hematocrit 27.8, platelets count 26. INR this morning was 2.4. BMP was grossly negative. Albumin 1.6. Urine cultures are positive for Morganella morganii, flu swab, MRSA screening and blood cultures remain negative. Chest x-ray yesterday morning showed a persistent patchy multifocal bilateral airspace disease in the lung bases in the left upper lobe with stable large mass in the right mid lung zone. PHYSICAL EXAMINATION: GENERAL APPEARANCE: Alert and oriented x 3, no acute distress. HEENT: Clear. No injection. Nares are patent. Mucous membranes are moist. NECK: Supple, nontender. CARDIOVASCULAR: Regular rate and rhythm, no murmurs, gallops or rubs. CHEST: Lungs with no wheezes or crackles, clear to auscultation. ABDOMEN: Soft, nontender. EXTREMITIES: No lesions, erythema, clubbing or cyanosis. NEUROLOGIC: No focal deficits. IMPRESSION: 1. Leukocytosis secondary to the steroids, status resolved. 2. Thrombocytopenia. 3. Acute pneumonia. 4. Metastatic advanced small cell lung cancer. 5. Therapy INR, on Coumadin. 6. Anemia, stable. PLAN: Continue to treat the patient with steroids. Argatroban can be discontinued at this time. Oxygen supplementation and antibiotics should be continued. No change in current pulmonary care plan. We will continue to follow. The patient is medically stable to transferred to the Med/Surg floor. ANÍBAL COY DO [place], [place] PROGRESS NOTE NAME: SUKHDEV MCDERMOTT UNIT #: [id number] ROOM: [facility] DOCTOR: ANÍBAL COY DO BIRTHDATE: [birth year] RODRIGO NUÑEZ MD CM:PNYRIS [id number] ANÍBAL COY DO 07/06/17 1132 interface
--- NOTE | ~2017-07-01 | EKG ---
[place], [place] ELECTROCARDIOGRAM REPORT NAME: SUKHDEV MCDERMOTT UNIT #: [id number] ROOM: 530 DOCTOR: MAGDALENA CLARKE [facility],CORTEZ BIRTHDATE: [birth year] DOS: 07/03/2017 TRACING TIME: 10:52. CONCLUSION: 1. Indeterminate rhythm. 2. Baseline artifact. 3. Tachycardic rhythm 118. 4. Septal scarring. 5. Poor R-wave progression in precordial leads and inferior and lateral leads. CORTEZ NICHOLS MD CM:EKGRPT:ELECTROCARDIOGRAM REPORT [id number] CORTEZ NICHOLS MD [facility]
--- NOTE | ~2017-07-01 | PR ---
[place], [place] PROGRESS NOTE NAME: SUKHDEV MCDERMOTT UNIT #: [id number] ROOM: [facility] DOCTOR: JOAQUIN LUCIANO MD,RODRIGO BIRTHDATE: [birth year] DOS: 07/08/2017 The patient independently seen and examined in [id number] encounter, history was confirmed. Physical examination performed. Labs reviewed. Assessment and management of the patient any changes for the current assessment for today's visit were personally done. Note done by the medical doctor was approved. SUBJECTIVE: The patient has been comfortably resting at this time on the bed without any symptoms of coughing, shortness of breath, chest pain or other symptoms. OBJECTIVE: VITAL SIGNS: Show normal temperature, respiratory rate 18, heart rate 84, blood pressure normal, pulse oxygen saturation on 1 liter nasal 97% saturation recorded. HEENT: No acute change. CARDIOVASCULAR: S1, S2 audible. LUNGS: The patient noted without any wheezing or crackles at the present time. ABDOMEN: Soft, nontender. EXTREMITIES: Without any new changes. Edema of the lower extremities noted today. LABORATORY DATA: CBC: Platelet count noted 20,000 after packed RBC blood transfusion, hemoglobin and hematocrit have been stable hemoglobin 10.4, hematocrit 32.5, WBC count 11.1. INR maintained 2.6, which is therapeutic. CMP: BUN 30, creatinine was normal. IMPRESSION: 1. The patient noted with acute lung injury, related to transfusion, responding to treatment very well with improvement in the acute respiratory failure and reduction in oxygen requirement. 2. 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 3. Thrombocytopenia, which has been currently treated with the platelets intermittently. 4. Deep venous thrombosis, high PT/INR. 5. Status post inferior vena cava filter insertion. PLAN OF TREATMENT: Continue the patient's current plan of therapy and management at this time with a dose of Solu-Medrol 40 mg b.i.d. Switching the patient to oral prednisone upon discharge gradual reduction and discontinuation for the next few weeks would be considered. Obtain a chest x-ray, PA lateral view to assess the current improvement in the respiratory status radiologically as well for bilateral pulmonary infiltration. [place], [place] PROGRESS NOTE NAME: SUKHDEV MCDERMOTT UNIT #: [id number] ROOM: 530 DOCTOR: RODRIGO RODAS MD BIRTHDATE: [birth year] RODRIGO NUÑEZ MD CM:PNTRANS [id number] [id number] RODRIGO LUCIANO MD 07/14/17 1424 interface
--- NOTE | ~2017-07-01 | PR ---
[place], [place] PROGRESS NOTE NAME: SUKHDEV MCDERMOTT [facility] #: [id number] UNIT #: [id number] ROOM: 530 DOCTOR: ROBERT FRANCO MD BIRTHDATE: [birth year] DOS: SUBJECTIVE: The patient has been admitted to the hospital with multiple medical problems including sepsis, pneumonitis, UTI, pressure ulcer on the buttocks, COPD, pleuritic chest pain, tachycardia, dehydration, chronic pain and metastatic cancer and with severe malnutrition due to advanced cancer. The patient's condition has been explained to the family that the patient is having terminal cancer. There is not too much which can improve him and we are trying to keep him comfortable, but they still want to keep him on full code, so we are trying to do whatever we can do about his condition. The patient has been seen by Dr. Parham also today. He said the patient is in progressive resolution of acute respiratory failure, improvement of the pulmonary infiltrates, resolving acute respiratory failure, recurrent thrombocytopenia, bilateral deep vein thrombosis, mild Coumadin toxicity, which is improving. His protime was 24 today. OBJECTIVE: VITAL SIGNS: His blood pressure is 125/66, pulse 69, respirations 20, temperature 97.9. CHEST: Having bilateral wheezing with increased expiration. HEART: Regular. ABDOMEN: Having ill defined tenderness all over. ROBERT FRANCO MD CM:PNTRANS [id number] ROBERT FRANCO MD 07/10/171711 interface
--- NOTE | ~2017-07-01 | PR ---
[place], [place] PROGRESS NOTE [id number] UNIT #: [id number] ROOM: 530 DOCTOR: JOAQUIN LUCIANO MD,RODRIGO BIRTHDATE: [birth year] DOS: 07/15/2017 SUBJECTIVE: He has been noted comfortable at this time without any distress. Remains in the hospital without any new changes. There were no symptoms of coughing, shortness of breath or any acute chest pain. OBJECTIVE: VITAL SIGNS: Normal temperature to 99.7 degree Fahrenheit, respiratory rate of 16, heart rate of 112, blood pressure 103/53. The intake for the patient of 1550 mL, output 3100, negative fluid balance of 1500 mL. Pulse ox saturation on 2 liters nasal cannula was 95% saturation. HEENT: Examination shows no acute change. NECK: Supple. CARDIOVASCULAR: S1, S2 audible. LUNGS: Noted without any wheezing or crackles. EXTREMITIES: No edema. IMPRESSION: The patient with thrombocytopenia with bilateral pulmonary embolism. Resolution of ____ with possible superimposed infection, already treated with the antibiotics. PLAN OF TREATMENT: Continue anticoagulation and bronchodilators. Antibiotic could be discontinued at this time. Reduction and discontinuation of Solu-Medrol in the next 1 week would be advised or oral prednisone. RODRIGO NUÑEZ MD CM:PNTRANS [id number] RODRIGO LUCIANO MD 07/15/17 1747 interface
--- NOTE | ~2017-07-01 | PR ---
[place], [place] PROGRESS NOTE NAME: SUKHDEV MCDERMOTT UNIT #: [id number] ROOM: [facility] DOCTOR: MIRIAM CLARKE,KATIE Mattson BIRTHDATE: [birth year] DOS: 07/03/2017 ADDENDUM: After reviewing the chart, labs and radiographs, I agree with the above plans as described. We will follow the patient up clinically and adjust accordingly. KATIE PINEDA MD CM:PNTRANS 30 KATIE PINEDA MD 07/03/172230 interface
--- NOTE | ~2017-07-01 | EKG ---
[place], [place] ELECTROCARDIOGRAM REPORT NAME: SUKHDEV MCDERMOTT UNIT #: [id number] ROOM: 530 DOCTOR: SANTANA HUDSON MD BIRTHDATE: [birth year] DOS: 07/11/2017 TIME: 16:11:08. RATE AND RHYTHM: Sinus tachycardia at 138 beats per minute. PA interval 139 milliseconds, QRS duration 73 milliseconds, corrected QT interval 426 milliseconds, QRS axis is 58. IMPRESSION: 1. Sinus tachycardia. 2. Ventricular premature complexes. 3. Abnormal EKG. SANTANA HUDSON MD CM:EKGRPT:ELECTROCARDIOGRAM REPORT [id number] 1050 SANTANA HUDSON MD
--- NOTE | ~2017-07-01 | PR ---
[place], [place] PROGRESS NOTE NAME: SUKHDEV MCDERMOTT [facility] #: [id number] UNIT #: [id number] ROOM: 530 DOCTOR: ROBERT FRANCO MD BIRTHDATE: [birth year] DOS: SUBJECTIVE: The patient is having metastatic CA with multiple medical problems, progressively getting worse and she is also having severe sepsis, pneumonitis, UTI, pressure ulcer of the buttock, COPD, pleuritic chest pain, pneumonia and tachycardia, dehydration and chronic pain due to cancer. He is stable at present, but his overall condition is not very good. He also ____. Basic metabolic profile today showed glucose 122, BUN 25, other values are fairly normal. CBC showed white count 10,000, hemoglobin 9.9, hematocrit 30.2 and his platelet count is 10. The patient received 2 units of platelet transfusion. His protime is 44.2 OBJECTIVE: VITAL SIGNS: Blood pressure is 142/66, pulse 80, respirations 20, temperature 98.2. HEART: Regular. CHEST: Showing increased expiration with some basal crepitation. ABDOMEN: Soft. ROBERT FRANCO MD CM:PNTRANS 04 57 ROBERT FRANCO MD 07/09/172056 interface
--- NOTE | ~2017-07-01 | PR ---
[place], [place] PROGRESS NOTE NAME: SUKHDEV MCDERMOTT UNIT #: [id number] ROOM: 530 DOCTOR: RODRIGO RODAS MD BIRTHDATE: [birth year] DOS: 07/10/2017 SUBJECTIVE: The patient was seen and examined. The patient was noted comfortable, noted with some oxygen desaturation per nursing staff, using oxygen supplementation via nasal cannula. He had not been reported symptoms of chest pain or hemoptysis. Low-grade fever was also noted at 100 degrees Fahrenheit this morning as well. The patient was not noted any symptoms of pain of the lower extremity. Denies any headache or diplopia. Remained mostly bedbound. OBJECTIVE: VITAL SIGNS: The highest temperature 100 degrees Fahrenheit, respiratory rate 20, heart rate 116, blood pressure 92/50. Pulse oxygen saturation on room air 93% saturation. HEENT: Examination shows no acute change. NECK: Supple. CARDIOVASCULAR: S1, S2 audible. LUNGS: The patient was noted without any wheezing or crackles at present time. The breaths are noted decreased lower portion of the lungs bilaterally. ABDOMEN: Soft, nontender. EXTREMITIES: Without any acute changes. Edema of lower extremities are present. SKIN: No lesions or rashes. MUSCULOSKELETAL SYMPTOMS: Without any acute deformity. LABORATORY DATA: INR today in the lab 2.2, therapeutic. CBC 07/10, normal WBC count, hemoglobin 10.7, hematocrit 32.4, and platelet count was 33,000 after platelet transfusion previously. IMPRESSION: Low grade fever with the tachycardia. The patient's etiology is unclear, possibly interval development of any acute infection would be considered. The chest x-ray will be ordered for the patient because of the hypoxia to rule out pulmonary infiltration or pneumonia. Also, obtain the urine culture and blood culture for patient as well. Additional therapy. PLAN OF TREATMENT: The patient to be done based on the progression of illness. Empirical use of the antibiotic. The patient ____ infection is excluded. [place], [place] PROGRESS NOTE NAME: SUKHDEV MCDERMOTT UNIT #: [id number] ROOM: 530 DOCTOR: RODRIGO RODAS MD BIRTHDATE: [birth year] RODRIGO NUÑEZ MD CM:PNTRANS 1240 1844 RODRIGO LUCIANO MD 07/10/17 1843 interface
--- NOTE | ~2017-07-01 | CON ---
[place], [place] REPORT OF CONSULTATION NAME: SUKHDEV MCDERMOTT [facility] #: [id number] UNIT #: [id number] ROOM: [facility] DOCTOR: AFSANEH PHILLIPS MD BIRTHDATE: [birth year] DOS: 07/03/2017 HISTORY OF PRESENT ILLNESS: The patient is a pleasant 71-year-old gentleman with a history of stage IV metastatic lung cancer. At the detention, he was found to be febrile, hypotensive, tachycardic, subsequently brought to the Emergency Room. Heart rate is 136, temperature 98.4, blood pressure 90/48 and was admitted. Further, he has a history of stage IV lung cancer, consulted for further evaluation and management. PAST MEDICAL HISTORY: Stage IV lung cancer diagnosed around 05/2016, history of thrombocytopenia, anemia of neoplastic disorder, history of epilepsy, GERD, essential hypertension, COPD, osteoporosis, peripheral neuropathy, vitamin D deficiency. PAST SURGICAL HISTORY: Right knee surgery, history of cholecystectomy. SOCIAL HISTORY: Former cigarette smoker, quit 02/2017. Smoked 2 packs per day. FAMILY HISTORY: Mother at age 60. ALLERGIES: No allergies. MEDICATIONS: Percocet, Fosamax, aspirin, Lipitor, Oyster Shell, Nexium, Neupogen, Neurontin, Zestril, GlycoLax and Ultram. REVIEW OF SYSTEMS CONSTITUTIONAL: No chills. No fatigue. No fever. No loss of appetite. No night sweats. No weakness. No weight loss. HEENT: No trouble swallowing. No loss of smell. No loss of hearing. No double vision. No pain. No discharge. ENT AND RESPIRATORY: No wheeze. No sore throat. No change in voice. No hearing loss. No nose bleed. No cough. No trouble breathing through nose. No shortness of breath. No coughing up blood. No epistaxis. CARDIOVASCULAR: No chest pain. No dizziness. No irregular heartbeat. No leg edema. No pain in legs while walking. No palpitations. No shortness of breath. DERMATOLOGIC: No acne. No hives. No laceration. No mole. No rash. ENDOCRINE: No cold intolerance. No diabetes. No fatigue. No hot flashes. No polydipsia. No polyuria. No urinating frequently. No weight loss. HEMATOLOGIC AND LYMPH: No fatigue. No easy bruising. GASTROENTEROLOGIC: No change in bowel habits. No indigestion. No frequent bloating. No vomiting blood. No abdominal cramping. No nausea. No heartburn. No vomiting. No abdominal pain. No dysphagia. No diarrhea. No constipation. No blood in stool. MALE REPRODUCTIVE: No testicular pain. No difficulty with erection. No diminished sexual drive. No penile discharge. MUSCULOSKELETAL: No back pain. No muscle pain or weakness. No neck pain. No tingling/numbness. No swelling/bruising. No osteoporosis treatment. OPHTHALMOLOGIC: No double vision. No diminished vision. No loss of vision. UROLOGIC: No dysuria. No frequent nighttime urination. No pain with [place], [place] REPORT OF CONSULTATION NAME: SUKHDEV MCDERMOTT UNIT #: [id number] ROOM: [facility] DOCTOR: AFSANEH PHILLIPS MD BIRTHDATE: [birth year] urination. No difficulty urinating. No blood in urine. No frequent urination. No urinary incontinence. NEUROLOGIC: No loss of sensation in specific body area. No vertigo. No burning pain in feet. No trouble with balance. No trouble with coordination. No loss of consciousness. No loss of feeling/power. No confusion. No headache. No tingling/numbness. PSYCHOLOGIC: No tinnitus. No headaches. No shortness of breath. No weight decrease. No nausea. No vomiting. No abdominal discomfort. No constipation. No diarrhea. No depression. No anxiety. PHYSICAL EXAMINATION: GENERAL: Pleasant gentleman in no apparent distress. VITAL SIGNS: Stable, low-grade fever. HEENT: Oral mucosa appears intact. The external ears are normal in appearance. Nares are patent without lesions, exudates, erythema, or inflammation. Tongue is symmetrical. Uvula is midline. NECK AND THYROID: Neck supple without palpable masses. Trachea is midline. No thyromegaly. No carotid bruit or JVD. BREASTS: Normal. Nipples unremarkable. No drainage. No lumps felt on either side. HEART: Normal S1, S2, without significant murmur, rub, or gallop. LUNGS: Clear to auscultation and percussion with good air entry bilaterally. The patient is breathing easily without the use of accessory muscles. Diaphragmatic excursions are intact. ABDOMEN: No costovertebral angle tenderness. Soft. No organomegaly or masses. Nontender. No hernias present. Liver and spleen are not palpable. LYMPHATIC: No adenopathy noted in the cervical, supraclavicular, axillary, or inguinal regions. NEUROLOGIC: Nonfocal. Oriented to person, place, and time. MENTAL STATUS: Appropriate for mood and affect. PERIPHERAL PULSES: No varicosities. Femoral and pedal pulses are palpable. EXTREMITIES: Without cyanosis, clubbing, or edema. No gross anomalies. LABORATORY DATA: White count 6.3, hemoglobin 7.4, hematocrit 23.6, MCV 103.1, platelet count of 30,000 or more. RADIOLOGY: A CT of the chest showed no pulmonary embolus. Venous Dopplers bilateral showed evidence of acute nonocclusive DVT within the bilateral superficial femoral, popliteal and deep tibioperoneal trunk. ASSESSMENT: 1. Nonocclusive deep venous thrombosis with bilateral superficial femoral, popliteal and tibioperoneal trunk bilaterally. 2. Stage IV lung cancer. 3. Anemia of neoplastic disorder. 4. Thrombocytopenia. 5. Possibility of acute pneumonia, sepsis. PLAN: The patient is on broad spectrum antibiotics. We will start ____ because of his low blood count, haptoglobin was started. In addition, ____ IVC filter placed. We will keep a close watch at this time ____ as his overall condition improves. Follow up counts for now. He will be also getting a PET scan for [place], [place] REPORT OF CONSULTATION NAME: SUKHDEV MCDERMOTT UNIT #: [id number] ROOM: [facility] DOCTOR: JACQUELINE CLARKE,AFSANEH BIRTHDATE: [birth year] staging purposes. See as an outpatient depending ____. I had a detailed discussion with the patient about it, seemed to understand. Ample time was given to the patient to ask me questions. We will follow. Thanks for consulting and letting me participate in the care of this interesting patient. AFSANEH PHILLIPS MD CM:CONSTR:REPORT OF CONSULTATION 1738 07/04/17 0013 interface
--- NOTE | ~2017-07-01 | EKG ---
[place], [place] ELECTROCARDIOGRAM REPORT NAME: SUKHDEV MCDERMOTT UNIT #: [id number] ROOM: [facility] DOCTOR: CELINA CLARKE,CHER BIRTHDATE: [birth year] DOS: 07/01/2017 TIME: 1845 hours. IMPRESSION: 1. Sinus rhythm, sinus tachycardia. 2. Supraventricular ectopy. 3. Baseline artifacts. 4. Possible old anterior infarction. CHER PATRICK MD CM:EKGRPT:ELECTROCARDIOGRAM REPORT 1411 1703 CHER PATRICK MD
--- NOTE | ~2017-07-01 | CON ---
[place], [place] REPORT OF CONSULTATION NAME: SUKHDEV MCDERMOTT UNIT #: [id number] ROOM: 530 DOCTOR: GLENDA CLARKESCARLET J BIRTHDATE: [birth year] DOS: 07/13/2017 PALLIATIVE CONSULT NOTE ATTENDING PHYSICIAN: Taking care of the patient is Dr. Keegan Alvarez HISTORY OF PRESENT ILLNESS: The patient is a 71-year-old gentleman with a past medical history of: 1. Metastatic cancer of the lung, status post chemotherapy by Dr. Tilley, carcinoma of the right lung. 2. Severe protein calorie malnutrition and adult failure to thrive. 3. Acute pneumonia and sepsis. 4. History of chemotherapy-induced thrombocytopenia. 5. History of epilepsy. 6. History of mixed hyperlipidemia. 7. BPH and urine retention history. 8. Benign essential hypertension. 9. COPD. 10. History of osteoporosis. 11. History of cancer associated pain. 12. History of coronary artery disease and non-ST elevation myocardial infarction. 13. Stage II pressure ulcer on the buttocks. The patient is presently admitted under care of Dr. Keegan Alvarez with fever, sepsis and pneumonia and advanced and the patient is being treated with antibiotics. The patient is very weak and says he is in pain all over and only wants to be treated conservatively. The patient already had chemotherapy and radiation for his right lung cancer, which is metastatic. The patient was sent over to the hospital because he was hypotensive, tachycardic and had fever at the [place] [facility]. The patient's blood pressures improved with hydration. The patient is very weak and says that he would generally like to be left alone and would not want aggressive treatment. REVIEW OF SYSTEMS: LUNGS: Chronic shortness of breath. GASTROINTESTINAL: Poor appetite. CARDIOVASCULAR: No chest pains. SOCIAL HISTORY: The patient had been residing at [facility]. Denies any recent smoking cigarettes, alcohol and drug abuse. FAMILY HISTORY: Noncontributory. MEDICATIONS: The patient's present medications are prednisone, metoprolol, Coumadin, vitamin D, diltiazem, Fosamax, Lipitor, aspirin, Flomax, Protonix, tramadol, Keppra, gabapentin, MiraLax, meclizine, DuoNeb, ceftriaxone, doxycycline [place], [place] REPORT OF CONSULTATION NAME: SUKHDEV MCDERMOTT [facility] #: [id number] UNIT #: [id number] ROOM: 530 DOCTOR: SCARLET DOSHI MD BIRTHDATE: [birth year] ALLERGIES: No known drug allergies. PHYSICAL EXAMINATION: GENERAL: Awake, alert, oriented, looking very weak and somewhat uncomfortable, but in no visible distress, except for generalized weakness. VITAL SIGNS: Blood pressure 128/78, heart rate 73 beats per minute, breathing 16 times per minute, temperature 98 degrees Fahrenheit. HEENT AND NECK: Extraocular movements are intact. Sclerae are anicteric. Oral mucosa is moist and clean. No obvious facial weakness. Neck is supple without any lymphadenopathy. No thyromegaly. No JVD. No carotid arterial bruits. LUNGS: Clear to auscultation. No wheezing. No rhonchi. CARDIOVASCULAR SYSTEM: Heart rate is regular in rate and rhythm. S1 and S2 normally audible. No significant murmur or any other abnormal cardiac sounds. ABDOMEN: Soft, nontender. No obvious organomegaly. Bowel sounds are present. No obvious herniation. EXTREMITIES: Chronic right leg and pedal edema. CENTRAL NERVOUS SYSTEM: Alert and oriented x 3. Cranial nerves II-XII are intact. Speech is normal. The patient is able to move all extremities. Normal muscle strength. Deep tendon reflexes are equal on both sides. Plantars were downgoing. LABORATORY DATA: INR therapeutic at 2.3. White cell count 5300, hemoglobin low at 7, platelets low at 23,000. Chest x-ray showing large mass in the right upper lung and pneumonia from the right hilum to the apex of the right lower lobe. IMPRESSION: 1. The patient with acute right lung pneumonia and right lung mass, which is large, representing metastatic cancer, which has undergone radiation and chemotherapy. The patient is doing very poorly. He is very weak and malnourished, thrombocytopenic and anemic from receiving chemotherapy in the past. The patient mentions that he would like to be left alone and not treated aggressively. I made an attempt to call his sister who patient says is very close to him. Her name is Trisha and a message was left for her to call me. I recommend a DNR/comfort care code status [facility] where he had been residing before this hospital admission. 2. Severe protein calorie malnutrition. The patient to work with dietary and nutrition is to be encouraged. 3. Stage II sacral decubitus. The patient requires air mattress, every 2 hour turning and to take fall precautions. 4. Severe anemia and thrombocytopenia related to chemotherapy. 5. Bilateral deep venous thrombosis of the lower extremities. The patient anticoagulated with Coumadin, at the same time he is anemic and thrombocytopenic. 6. History of coronary artery disease and non-ST elevation myocardial infarction in the past, presently asymptomatic. 7. Advance disability and adult failure to thrive with poor long-term prognosis and the patient requesting comfort care measures. The patient can be treated with morphine for pain control and Ativan for anxiety, agitation and respiratory discomfort on as need basis and atropine drops if he gets excessive oral [place], [place] REPORT OF CONSULTATION NAME: SUKHDEV MCDERMOTT UNIT #: [id number] ROOM: [facility] DOCTOR: SCARLET DOSHI MD BIRTHDATE: [birth year] secretions. The patient has significant amount of rhonchi and congestion in his chest, for which oxygen needs to be maintained. 8. I am waiting for a call back from his sister, Trisha. Dr. Keegan Alvarez, thank you for asking me to see this patient. I will follow along with you. SCARLET DOSHI MD CM:CONSTR:REPORT OF CONSULTATION 1110 07/13/17 2216 interface
--- NOTE | ~2017-07-01 | EKG ---
[place], [place] ELECTROCARDIOGRAM REPORT NAME: SUKHDEV MCDERMOTT UNIT #: [id number] ROOM: [facility] DOCTOR: MAGDALENA CLARKE [facility],CORTEZ BIRTHDATE: [birth year] DOS: 07/04/2017 TRACING TIME: 0721. CONCLUSION: 1. Sinus rhythm. 2. J point elevation. 3. or pericarditis may be considered. CORTEZ NICHOLS MD CM:EKGRPT:ELECTROCARDIOGRAM REPORT [id number] [facility]
--- NOTE | ~2017-07-01 | PR ---
[place], [place] PROGRESS NOTE NAME: SUKHDEV MCDERMOTT UNIT #: [id number] ROOM: 530 DOCTOR: ANNELIESEANÍBAL NUNEZ DO BIRTHDATE: [birth year] DOS: 07/13/2017 SUBJECTIVE: The patient is seen and examined at bedside. The patient was sitting upright in no acute distress. The patient reports she is comfortable at this time without any new complaints. The patient denies cough or sputum production or shortness of breath. The patient denies hemoptysis. OBJECTIVE: VITAL SIGNS: Temperature 98.0, pulse is 87, respirations 18, blood pressure 130/82, pulse ox 96% on room air. GENERAL: The patient is awake, alert and oriented x 3. HEENT: No acute change. NECK: Supple, nontender. CARDIOVASCULAR: S1 and S2 audible, regular rate and rhythm. LUNGS: Bibasilar crackles, no wheezing, rales, or rhonchi. ABDOMEN: Soft and nontender with positive bowel sounds. EXTREMITIES: Show significant edema of the lower extremities. No change from yesterday. LABORATORY DATA: White count 5.3, hemoglobin 7.0, hematocrit 21.9, platelets count is 23. IMPRESSION: 1. Thrombocytopenia. 2. Deep venous thrombosis in lower extremity. 3. Lung cancer. 4. Pulmonary infiltration of the left upper lung, likely acute pneumonia, which is resolving. 5. Pulmonary toxicity secondary to Keytruda TREATMENT AND PLAN: Continue antibiotics for the suspected pneumonia. No change in current plan. Continue steroids and bronchodilators as well. The patient continues to be stable. No acute change in her clinical presentation or prognosis. We will continue to follow. ANÍBAL SANTANADO MAYRA [place], [place] PROGRESS NOTE NAME: SUKHDEV MCDERMOTT UNIT #: [id number] ROOM: 530 DOCTOR: DARYL COY DOY BIRTHDATE: [birth year] RODRIGO NUÑEZ MD CM:PNTRANS [id number] ANÍBAL COY DO 07/14/17 1037 interface
--- NOTE | ~2017-07-01 | PR ---
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 ROBERT FRANCO MD CM:NATASHA [id number] ROBERT FRANCO MD 07/19/17 0931 interface
--- NOTE | ~2017-07-01 | PR ---
[place], [place] PROGRESS NOTE NAME: [id number] UNIT #: [id number] ROOM: 530 DOCTOR: AFSANEH PHILLIPS MD BIRTHDATE: [birth year] DOS: 07/12/2017 SUBJECTIVE: The patient is doing better. He is alert and oriented. PHYSICAL EXAMINATION: GENERAL: He is a pleasant gentleman in no apparent distress. VITAL SIGNS: Stable. He is afebrile. HEENT: Oral mucosa appears intact. The external ears are normal in appearance. Nares are patent without lesions, exudates, erythema, or inflammation. Tongue is symmetrical. Uvula is midline. NECK AND THYROID: Neck supple without palpable masses. Trachea is midline. No thyromegaly. No carotid bruit or JVD. BREASTS: Normal. Nipples unremarkable. No drainage. No lumps felt on either side. HEART: Normal S1, S2, without significant murmur, rub, or gallop. LUNGS: Clear to auscultation and percussion with good air entry bilaterally. The patient is breathing easily without the use of accessory muscles. Diaphragmatic excursions are intact. ABDOMEN: No costovertebral angle tenderness. Soft. No organomegaly or masses. Nontender. No hernias present. Liver and spleen are not palpable. LYMPHATIC: No adenopathy noted in the cervical, supraclavicular, axillary, or inguinal regions. NEUROLOGIC: Nonfocal. Oriented to person, place, and time. MENTAL STATUS: Appropriate for mood and affect. PERIPHERAL PULSES: No varicosities. Femoral and pedal pulses are palpable. EXTREMITIES: Without cyanosis, clubbing, or edema. No gross anomalies. LABORATORY DATA: White count of 6.8, hemoglobin 8.3, hematocrit 25.6, and platelet count 24,000. ASSESSMENT: 1. 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 2. Thrombocytopenia. 3. Bilateral deep venous thromboses. PLAN: He may need a transfusion if the hemoglobin drops further. In the meantime, continue present management. Discussed with the patient. [place], [place] PROGRESS NOTE NAME: SUKHDEV MCDERMOTT UNIT #: [id number] ROOM: 530 DOCTOR: AFSANEH PHILLIPS MD BIRTHDATE: [birth year] AFSANEH PHILLIPS MD CM:PNTRANS 1326 12 AFSANEH PHILLIPS MD 07/12/172312 interface
[~2017-07-01 13:13] MED LIST changes: +ASPIRIN ADULT L81 M1 PO; +CEFAZOLIN1 G1 IV; +DEXAMETHASONE2 MG PO; +GLYCOLAX119 GM PO; +GOOD NEIGHBOR M25 M1 PO; +NEUPOGEN480 MCG/0. IJ; +VITAMIN D35000 UNIT PO; +ZESTRIL10 MG PO
[2017-07-01 14:30] LABS: HEMATOCRIT 28.7 % (42.0-52.0); HEMOGLOBIN 9.2 g/dl (14.0-18.0); MEAN CELL VOLUME 99.7 fl (80.0-94.0); MEAN CORPUSCULAR HGB 31.9 pg (27.0-31.0); MEAN CORPUSCULAR HGB CONC 32.1 g/dl (33.0-37.0); MEAN PLATELET VOLUME 12.3 fl (9.6-12.3); NUCLEATED RED BLOOD CELL 0.2 10*3/uL (0.0-0.0); NUCLEATED RED BLOOD CELL 2.6 % (0.0-0.0); PLATELET COUNT AUTOMATED 39 10*3/uL (130-400); RED BLOOD COUNT 2.88 10*6/uL (4.50-5.90); RED CELL DISTRI WIDTH 21.5 % (0-14.5); WHITE BLOOD COUNT 9.3 10*3/uL (4.8-10.8)
[2017-07-01 14:40] LABS: BILIRUBIN NEGATIVE (NEGATIVE); BLOOD NEGATIVE (NEGATIVE); CLARITY SL CLOUDY (CLEAR); COLOR YELLOW (YELLOW); GLUCOSE NEGATIVE (NEGATIVE); KETONE NEGATIVE (NEGATIVE); LEUKO ESTERASE TRACE (NEGATIVE); NITRITE NEGATIVE (NEGATIVE); PH 7.5 (5.0-9.0)
[2017-07-01 14:43] LABS: RBC 0-2 rbc/hpf (0-2); WBC 51-100 wbc/hpf (0-5)
[2017-07-01 14:44] LABS: BACTERIA 2+
[2017-07-01 14:46] LABS: ALBUMIN 1.9 gm/dl (3.1-4.5); ALKALINE PHOSPHATASE 92 U/L (45-117); BUN 36 mg/dl (7-24); CHLORIDE 102 mmol/L (98-107); CREATININE 1.25 mg/dL (0.70-1.30); POTASSIUM 4.5 mmol/L (3.5-5.1); SGOT/AST 20 IU/L (3-35); SGPT/ALT 30 U/L (12-78); SODIUM 136 mmol/L (136-145); TOTAL PROTEIN 6.2 gm/dL (6.4-8.2)
[2017-07-01 14:52] LABS: POLYCHROMASIA SLIGHT; TOTAL CELLS COUNTED 100 #CELLS
[2017-07-01 14:53] LABS: BURR CELLS FEW; OVALOCYTES FEW; ROULEAUX SLIGHT
[2017-07-01 14:54] LABS: PLATELET SUFFICIENCY LOW (NORMAL); TOXIC GRANULATION SLIGHT; VACUOLATION OF NEUTROPHILS SLIGHT
[2017-07-02] VITALS: BP 108/49
[2017-07-02 04:00] VITALS: BP 114/51
[2017-07-02 06:00] LABS: CHLORIDE 109 mmol/L (98-107); CREATININE 0.88 mg/dL (0.70-1.30); POTASSIUM 3.9 mmol/L (3.5-5.1); SODIUM 140 mmol/L (136-145)
[2017-07-02 06:02] LABS: HEMATOCRIT 22.9 % (42.0-52.0); HEMOGLOBIN 7.3 g/dl (14.0-18.0); MEAN CELL VOLUME 101.3 fl (80.0-94.0); MEAN CORPUSCULAR HGB 32.3 pg (27.0-31.0); MEAN CORPUSCULAR HGB CONC 31.9 g/dl (33.0-37.0); MEAN PLATELET VOLUME 11.5 fl (9.6-12.3); NUCLEATED RED BLOOD CELL 0.1 10*3/uL (0.0-0.0); NUCLEATED RED BLOOD CELL 0.8 % (0.0-0.0); RED BLOOD COUNT 2.26 10*6/uL (4.50-5.90); RED CELL DISTRI WIDTH 21.6 % (0-14.5); WHITE BLOOD COUNT 6.3 10*3/uL (4.8-10.8)
[2017-07-02 06:03] LABS: CHOLESTEROL 79 mg/dL (<200); PHOSPHOROUS 4.4 mg/dL (2.5-4.9); TRIGLYCERIDES 62 mg/dl (<150); VLDL CHOLESTEROL 12 mg/dL (6-40)
[2017-07-02 06:11] LABS: HDL CHOLESTEROL 43 mg/dl (40-60); LDL CHOLESTEROL 24 mg/dL (9-159)
[2017-07-02 06:12] LABS: BUN 24 mg/dl (7-24)
[2017-07-02 06:27] LABS: PLATELET SUFFICIENCY LOW (NORMAL); SCHISTOCYTES FEW; TOTAL CELLS COUNTED 100 #CELLS; TOXIC GRANULATION MODERATE
[2017-07-02 06:28] LABS: PLATELET COUNT AUTOMATED 27 10*3/uL (130-400)
[2017-07-02 08:00] VITALS: BP 116/52
[2017-07-02 12:00] VITALS: BP 119/60
[2017-07-02 16:00] VITALS: BP 119/55
[2017-07-02 20:00] VITALS: BP 118/62
[2017-07-03] VITALS (12 sets, daily range): BP systolic 93–134; BP diastolic 49–78
[2017-07-03 04:20] LABS: HEMATOCRIT 23.6 % (42.0-52.0); HEMOGLOBIN 7.4 g/dl (14.0-18.0); MEAN CELL VOLUME 103.1 fl (80.0-94.0); MEAN CORPUSCULAR HGB 32.3 pg (27.0-31.0); MEAN CORPUSCULAR HGB CONC 31.4 g/dl (33.0-37.0); MEAN PLATELET VOLUME 12.7 fl (9.6-12.3); NUCLEATED RED BLOOD CELL 0.1 10*3/uL (0.0-0.0); NUCLEATED RED BLOOD CELL 1.6 % (0.0-0.0); PLATELET COUNT AUTOMATED 30 10*3/uL (130-400); RED BLOOD COUNT 2.29 10*6/uL (4.50-5.90); RED CELL DISTRI WIDTH 21.6 % (0-14.5); WHITE BLOOD COUNT 6.3 10*3/uL (4.8-10.8)
[2017-07-03 04:30] LABS: BUN 17 mg/dl (7-24); CHLORIDE 110 mmol/L (98-107); CREATININE 0.72 mg/dL (0.70-1.30); POTASSIUM 4.4 mmol/L (3.5-5.1); SODIUM 142 mmol/L (136-145)
[2017-07-03 04:44] LABS: PLATELET SUFFICIENCY LOW (NORMAL); SCHISTOCYTES FEW; TOTAL CELLS COUNTED 100 #CELLS
[2017-07-03 04:45] LABS: BURR CELLS FEW; POLYCHROMASIA SLIGHT
[2017-07-04] VITALS (22 sets, daily range): BP systolic 97–135; BP diastolic 50–74
[2017-07-04 06:03] LABS: BUN 24 mg/dl (7-24); CHLORIDE 111 mmol/L (98-107); CREATININE 0.69 mg/dL (0.70-1.30); POTASSIUM 4.6 mmol/L (3.5-5.1); SODIUM 143 mmol/L (136-145)
[2017-07-04 06:04] LABS: HEMATOCRIT 22.2 % (42.0-52.0); HEMOGLOBIN 6.8 g/dl (14.0-18.0); MEAN CELL VOLUME 104.2 fl (80.0-94.0); MEAN CORPUSCULAR HGB 31.9 pg (27.0-31.0); MEAN CORPUSCULAR HGB CONC 30.6 g/dl (33.0-37.0); MEAN PLATELET VOLUME 12.8 fl (9.6-12.3); NUCLEATED RED BLOOD CELL 0.1 10*3/uL (0.0-0.0); NUCLEATED RED BLOOD CELL 1.8 % (0.0-0.0); PLATELET COUNT AUTOMATED 30 10*3/uL (130-400); RED BLOOD COUNT 2.13 10*6/uL (4.50-5.90); RED CELL DISTRI WIDTH 21.6 % (0-14.5); WHITE BLOOD COUNT 6.6 10*3/uL (4.8-10.8)
[2017-07-04 07:17] LABS: TOTAL CELLS COUNTED 100 #CELLS
[2017-07-04 07:18] LABS: BURR CELLS FEW; OVALOCYTES FEW; PLATELET SUFFICIENCY LOW (NORMAL); POLYCHROMASIA SLIGHT; TOXIC GRANULATION SLIGHT
[2017-07-04 22:09] LABS: INTERNATIONAL NORM RATIO 2.8 (2.0-3.5)
[2017-07-05 04:03] VITALS: BP 133/72
[2017-07-05 06:07] LABS: ALBUMIN 1.7 gm/dl (3.1-4.5); BUN 28 mg/dl (7-24); CHLORIDE 108 mmol/L (98-107); MEAN CORPUSCULAR HGB 31.2 pg (27.0-31.0); MEAN CORPUSCULAR HGB CONC 32.9 g/dl (33.0-37.0); MEAN PLATELET VOLUME 12.3 fl (9.6-12.3); NUCLEATED RED BLOOD CELL 0.2 10*3/uL (0.0-0.0); NUCLEATED RED BLOOD CELL 2.1 % (0.0-0.0); POTASSIUM 4.4 mmol/L (3.5-5.1); RED BLOOD COUNT 2.98 10*6/uL (4.50-5.90); RED CELL DISTRI WIDTH 21.1 % (0-14.5); SODIUM 141 mmol/L (136-145); WHITE BLOOD COUNT 8.3 10*3/uL (4.8-10.8)
[2017-07-05 06:12] LABS: ALKALINE PHOSPHATASE 94 U/L (45-117); CREATININE 0.94 mg/dL (0.70-1.30); SGOT/AST 20 IU/L (3-35); SGPT/ALT 25 U/L (12-78); TOTAL PROTEIN 5.2 gm/dL (6.4-8.2)
[2017-07-05 06:20] LABS: HEMATOCRIT 28.3 % (42.0-52.0); HEMOGLOBIN 9.3 g/dl (14.0-18.0)
[2017-07-05 06:43] LABS: PLATELET SUFFICIENCY LOW (NORMAL); TOTAL CELLS COUNTED 100 #CELLS
[2017-07-05 06:44] LABS: PLATELET COUNT AUTOMATED 27 10*3/uL (130-400)
[2017-07-05 07:07] LABS: ACT PARTIAL THROMBO TIME 42.7 SECONDS (20.8-31.5); INTERNATIONAL NORM RATIO 2.6 (2.0-3.5)
[2017-07-05 08:00] VITALS: BP 138/80
[2017-07-05 12:00] VITALS: BP 136/86
[2017-07-05 16:00] VITALS: BP 138/68
[2017-07-05 20:00] VITALS: BP 139/73
[2017-07-06] VITALS (7 sets, daily range): BP systolic 140–162; BP diastolic 72–85
[2017-07-06 06:00] LABS: ALBUMIN 1.6 gm/dl (3.1-4.5); ALKALINE PHOSPHATASE 98 U/L (45-117); BUN 28 mg/dl (7-24); CHLORIDE 107 mmol/L (98-107); CREATININE 0.97 mg/dL (0.70-1.30); POTASSIUM 4.2 mmol/L (3.5-5.1); SGOT/AST 18 IU/L (3-35); SGPT/ALT 24 U/L (12-78); SODIUM 141 mmol/L (136-145)
[2017-07-06 06:02] LABS: ACT PARTIAL THROMBO TIME 38.8 SECONDS (20.8-31.5); INTERNATIONAL NORM RATIO 2.4 (2.0-3.5)
[2017-07-06 06:04] LABS: HEMATOCRIT 27.8 % (42.0-52.0); HEMOGLOBIN 9.2 g/dl (14.0-18.0); MEAN CELL VOLUME 96.9 fl (80.0-94.0); MEAN CORPUSCULAR HGB 32.1 pg (27.0-31.0); MEAN CORPUSCULAR HGB CONC 33.1 g/dl (33.0-37.0); MEAN PLATELET VOLUME 10.8 fl (9.6-12.3); NUCLEATED RED BLOOD CELL 0.1 10*3/uL (0.0-0.0); NUCLEATED RED BLOOD CELL 1.2 % (0.0-0.0); RED BLOOD COUNT 2.87 10*6/uL (4.50-5.90); RED CELL DISTRI WIDTH 20.3 % (0-14.5); WHITE BLOOD COUNT 9.6 10*3/uL (4.8-10.8)
[2017-07-06 06:41] LABS: BURR CELLS FEW; PLATELET SUFFICIENCY LOW (NORMAL); POLYCHROMASIA SLIGHT; TOTAL CELLS COUNTED 100 #CELLS
[2017-07-06 06:43] LABS: PLATELET COUNT AUTOMATED 26 10*3/uL (130-400)
[2017-07-06 17:06] LABS: LEGIONELLA URINARY ANTIGEN Negative (Negative)
[2017-07-07 00:01] VITALS: BP 155/68
[2017-07-07 07:28] LABS: HEMATOCRIT 29.5 % (42.0-52.0); HEMOGLOBIN 9.7 g/dl (14.0-18.0); MEAN CELL VOLUME 96.4 fl (80.0-94.0); MEAN CORPUSCULAR HGB 31.7 pg (27.0-31.0); MEAN CORPUSCULAR HGB CONC 32.9 g/dl (33.0-37.0); MEAN PLATELET VOLUME 13.3 fl (9.6-12.3); NUCLEATED RED BLOOD CELL 0.1 10*3/uL (0.0-0.0); RED BLOOD COUNT 3.06 10*6/uL (4.50-5.90); RED CELL DISTRI WIDTH 19.9 % (0-14.5)
[2017-07-07 07:42] LABS: ALBUMIN 1.8 gm/dl (3.1-4.5); ALKALINE PHOSPHATASE 94 U/L (45-117); BUN 27 mg/dl (7-24); CHLORIDE 106 mmol/L (98-107); CREATININE 0.86 mg/dL (0.70-1.30); POTASSIUM 4.4 mmol/L (3.5-5.1); SGOT/AST 22 IU/L (3-35); SGPT/ALT 26 U/L (12-78); SODIUM 140 mmol/L (136-145); TOTAL PROTEIN 4.9 gm/dL (6.4-8.2)
[2017-07-07 07:48] LABS: ACT PARTIAL THROMBO TIME 20.2 SECONDS (20.8-31.5); INTERNATIONAL NORM RATIO 1.8 (2.0-3.5)
[2017-07-07 08:12] LABS: TOTAL CELLS COUNTED 100 #CELLS
[2017-07-07 08:13] LABS: BURR CELLS FEW; OVALOCYTES FEW; PLATELET SUFFICIENCY LOW (NORMAL); SCHISTOCYTES OCCASIONAL
[2017-07-07 08:15] LABS: PLATELET COUNT AUTOMATED 16 10*3/uL (130-400)
[2017-07-07 12:00] VITALS: BP 154/74
[2017-07-07 16:00] VITALS: BP 158/77
[2017-07-07 20:37] VITALS: BP 148/70
[2017-07-08] VITALS: BP 152/69
[2017-07-08 06:47] LABS: HEMATOCRIT 32.5 % (42.0-52.0); HEMOGLOBIN 10.4 g/dl (14.0-18.0); MEAN CELL VOLUME 98.2 fl (80.0-94.0); MEAN CORPUSCULAR HGB 31.4 pg (27.0-31.0); MEAN PLATELET VOLUME 11.8 fl (9.6-12.3); NUCLEATED RED BLOOD CELL 0.1 10*3/uL (0.0-0.0); NUCLEATED RED BLOOD CELL 1.1 % (0.0-0.0); RED BLOOD COUNT 3.31 10*6/uL (4.50-5.90); RED CELL DISTRI WIDTH 20.3 % (0-14.5); WHITE BLOOD COUNT 11.1 10*3/uL (4.8-10.8)
[2017-07-08 06:58] LABS: ALBUMIN 2.1 gm/dl (3.1-4.5); ALKALINE PHOSPHATASE 109 U/L (45-117); BUN 30 mg/dl (7-24); CHLORIDE 103 mmol/L (98-107); CREATININE 0.86 mg/dL (0.70-1.30); POTASSIUM 4.6 mmol/L (3.5-5.1); SGOT/AST 41 IU/L (3-35); SGPT/ALT 43 U/L (12-78); SODIUM 139 mmol/L (136-145); TOTAL PROTEIN 5.1 gm/dL (6.4-8.2)
[2017-07-08 07:16] LABS: INTERNATIONAL NORM RATIO 2.6 (2.0-3.5)
[2017-07-08 07:36] LABS: BURR CELLS FEW; PLATELET SUFFICIENCY LOW (NORMAL); SCHISTOCYTES FEW; TOTAL CELLS COUNTED 100 #CELLS
[2017-07-08 07:38] LABS: PLATELET COUNT AUTOMATED 20 10*3/uL (130-400)
[2017-07-08 07:52] VITALS: BP 160/80
[2017-07-08 12:00] VITALS: BP 146/60
[2017-07-08 16:00] VITALS: BP 136/75
[2017-07-08 20:00] VITALS: BP 159/81
[2017-07-09] VITALS: BP 150/75
[2017-07-09 08:00] VITALS: BP 146/70
[2017-07-09 08:37] LABS: HEMATOCRIT 30.2 % (42.0-52.0); HEMOGLOBIN 9.9 g/dl (14.0-18.0); MEAN CELL VOLUME 95.9 fl (80.0-94.0); MEAN CORPUSCULAR HGB 31.4 pg (27.0-31.0); MEAN CORPUSCULAR HGB CONC 32.8 g/dl (33.0-37.0); NUCLEATED RED BLOOD CELL 0.1 10*3/uL (0.0-0.0); NUCLEATED RED BLOOD CELL 1.4 % (0.0-0.0); RED BLOOD COUNT 3.15 10*6/uL (4.50-5.90)
[2017-07-09 08:39] LABS: PLATELET COUNT AUTOMATED 10 10*3/uL (130-400)
[2017-07-09 09:00] LABS: BUN 25 mg/dl (7-24); CHLORIDE 102 mmol/L (98-107); CREATININE 0.73 mg/dL (0.70-1.30); POTASSIUM 4.6 mmol/L (3.5-5.1); SODIUM 138 mmol/L (136-145)
[2017-07-09 09:18] LABS: PLATELET SUFFICIENCY LOW (NORMAL); TOTAL CELLS COUNTED 100 #CELLS
[2017-07-09 09:19] LABS: BURR CELLS FEW; SCHISTOCYTES FEW
[2017-07-09 09:29] LABS: INTERNATIONAL NORM RATIO 3.8 (2.0-3.5)
[2017-07-09 12:00] VITALS: BP 142/66
[2017-07-09 16:00] VITALS: BP 140/70
[2017-07-09 20:00] VITALS: BP 136/67; BP 147/84
[2017-07-10] VITALS (7 sets, daily range): BP systolic 88–125; BP diastolic 50–70
[2017-07-10 06:04] LABS: HEMATOCRIT 32.4 % (42.0-52.0); HEMOGLOBIN 10.7 g/dl (14.0-18.0); MEAN CELL VOLUME 96.7 fl (80.0-94.0); MEAN CORPUSCULAR HGB 31.9 pg (27.0-31.0); MEAN PLATELET VOLUME 10.8 fl (9.6-12.3); NUCLEATED RED BLOOD CELL 0.3 10*3/uL (0.0-0.0); NUCLEATED RED BLOOD CELL 3.1 % (0.0-0.0); RED BLOOD COUNT 3.35 10*6/uL (4.50-5.90); RED CELL DISTRI WIDTH 20.5 % (0-14.5); WHITE BLOOD COUNT 10.5 10*3/uL (4.8-10.8)
[2017-07-10 06:26] LABS: PLATELET COUNT AUTOMATED 33 10*3/uL (130-400)
[2017-07-10 06:54] LABS: TOTAL CELLS COUNTED 100 #CELLS
[2017-07-10 06:56] LABS: PLATELET SUFFICIENCY LOW (NORMAL)
[2017-07-10 06:57] LABS: BURR CELLS FEW; POLYCHROMASIA SLIGHT
[2017-07-10 09:56] LABS: INTERNATIONAL NORM RATIO 2.2 (2.0-3.5)
[2017-07-10 22:27] LABS: BILIRUBIN NEGATIVE (NEGATIVE); BLOOD 3+ (NEGATIVE); CLARITY CLOUDY (CLEAR); COLOR YELLOW (YELLOW); GLUCOSE NEGATIVE (NEGATIVE); KETONE NEGATIVE (NEGATIVE); LEUKO ESTERASE TRACE (NEGATIVE); NITRITE NEGATIVE (NEGATIVE); PH 5.5 (5.0-9.0); SPECIFIC GRAVITY <= 1.005 (1.005-1.030); UROBILINOGEN 0.2 E.U./dl (0.2-1.0)
[2017-07-10 22:34] LABS: BACTERIA 4+; EPITHELIAL CELLS 0-2; MUCOUS TRACE; RBC TNTC rbc/hpf (0-2); WBC TNTC wbc/hpf (0-5)
[2017-07-11] VITALS: BP 91/56
[2017-07-11 05:40] VITALS: BP 126/70
[2017-07-11 06:48] LABS: HEMOGLOBIN 9.6 g/dl (14.0-18.0); MEAN CORPUSCULAR HGB 31.7 pg (27.0-31.0); MEAN PLATELET VOLUME 11.8 fl (9.6-12.3); NUCLEATED RED BLOOD CELL 0.1 10*3/uL (0.0-0.0); NUCLEATED RED BLOOD CELL 0.7 % (0.0-0.0); RED BLOOD COUNT 3.03 10*6/uL (4.50-5.90); RED CELL DISTRI WIDTH 21.2 % (0-14.5); WHITE BLOOD COUNT 9.5 10*3/uL (4.8-10.8)
[2017-07-11 06:54] LABS: INTERNATIONAL NORM RATIO 1.7 (2.0-3.5)
[2017-07-11 07:35] LABS: TOTAL CELLS COUNTED 100 #CELLS
[2017-07-11 07:36] LABS: PLATELET SUFFICIENCY LOW (NORMAL); POLYCHROMASIA SLIGHT; SCHISTOCYTES FEW
[2017-07-11 07:38] LABS: PLATELET COUNT AUTOMATED 27 10*3/uL (130-400)
[2017-07-11 08:28] VITALS: BP 99/54
[2017-07-11 12:00] VITALS: BP 101/63
[2017-07-11 16:00] VITALS: BP 116/82
[2017-07-11 20:00] VITALS: BP 107/61
[2017-07-12] VITALS: BP 98/50
[2017-07-12 06:00] VITALS: BP 78/50
[2017-07-12 07:02] LABS: HEMATOCRIT 25.6 % (42.0-52.0); HEMOGLOBIN 8.3 g/dl (14.0-18.0); MEAN CELL VOLUME 98.8 fl (80.0-94.0); MEAN CORPUSCULAR HGB CONC 32.4 g/dl (33.0-37.0); MEAN PLATELET VOLUME 11.3 fl (9.6-12.3); RED BLOOD COUNT 2.59 10*6/uL (4.50-5.90); RED CELL DISTRI WIDTH 21.2 % (0-14.5); WHITE BLOOD COUNT 6.8 10*3/uL (4.8-10.8)
[2017-07-12 07:30] LABS: PLATELET SUFFICIENCY LOW (NORMAL); POLYCHROMASIA SLIGHT; SCHISTOCYTES FEW; TOTAL CELLS COUNTED 100 #CELLS; TOXIC GRANULATION SLIGHT
[2017-07-12 07:33] LABS: PLATELET COUNT AUTOMATED 24 10*3/uL (130-400)
[2017-07-12 07:42] LABS: INTERNATIONAL NORM RATIO 1.6 (2.0-3.5)
[2017-07-12 08:00] VITALS: BP 80/50
[2017-07-12 12:00] VITALS: BP 98/50
[2017-07-12 16:00] VITALS: BP 105/44
[2017-07-13] VITALS: BP 111/62
[2017-07-13 05:30] VITALS: BP 100/57
[2017-07-13 06:26] LABS: HEMATOCRIT 21.9 % (42.0-52.0); RED BLOOD COUNT 2.19 10*6/uL (4.50-5.90); RED CELL DISTRI WIDTH 20.4 % (0-14.5); WHITE BLOOD COUNT 5.3 10*3/uL (4.8-10.8)
[2017-07-13 06:59] LABS: BUN 28 mg/dl (7-24); CHLORIDE 103 mmol/L (98-107); CREATININE 0.76 mg/dL (0.70-1.30); POTASSIUM 3.9 mmol/L (3.5-5.1); SODIUM 138 mmol/L (136-145)
[2017-07-13 07:07] LABS: INTERNATIONAL NORM RATIO 2.3 (2.0-3.5)
[2017-07-13 07:12] LABS: PLATELET SUFFICIENCY LOW (NORMAL); ROULEAUX MODERATE; SCHISTOCYTES FEW; TOTAL CELLS COUNTED 100 #CELLS
[2017-07-13 07:20] LABS: PLATELET COUNT AUTOMATED 23 10*3/uL (130-400)
[2017-07-13 08:00] VITALS: BP 128/78
[2017-07-13 12:00] VITALS: BP 130/82
[2017-07-13 16:00] VITALS: BP 128/84
[2017-07-13 21:04] VITALS: BP 111/52
[2017-07-14] VITALS: BP 133/61
[2017-07-14 06:43] LABS: HEMATOCRIT 25.1 % (42.0-52.0); HEMOGLOBIN 8.3 g/dl (14.0-18.0); MEAN CELL VOLUME 97.3 fl (80.0-94.0); MEAN CORPUSCULAR HGB 32.2 pg (27.0-31.0); MEAN CORPUSCULAR HGB CONC 33.1 g/dl (33.0-37.0); RED BLOOD COUNT 2.58 10*6/uL (4.50-5.90); RED CELL DISTRI WIDTH 19.9 % (0-14.5); WHITE BLOOD COUNT 6.3 10*3/uL (4.8-10.8)
[2017-07-14 06:50] LABS: INTERNATIONAL NORM RATIO 3.3 (2.0-3.5)
[2017-07-14 06:53] LABS: CHLORIDE 100 mmol/L (98-107); CREATININE 0.67 mg/dL (0.70-1.30); POTASSIUM 4.5 mmol/L (3.5-5.1); SODIUM 136 mmol/L (136-145)
[2017-07-14 06:59] LABS: BUN 18 mg/dl (7-24)
[2017-07-14 07:31] LABS: OVALOCYTES FEW; PLATELET SUFFICIENCY LOW (NORMAL); POLYCHROMASIA SLIGHT; SCHISTOCYTES FEW; TOTAL CELLS COUNTED 100 #CELLS
[2017-07-14 07:34] LABS: PLATELET COUNT AUTOMATED 26 10*3/uL (130-400)
[2017-07-14 08:00] VITALS: BP 132/84
[2017-07-14 11:35] VITALS: BP 128/82
[2017-07-14 16:00] VITALS: BP 136/67
[2017-07-14 20:00] VITALS: BP 120/62
[2017-07-15 00:36] VITALS: BP 118/57
[2017-07-15 08:29] LABS: INTERNATIONAL NORM RATIO 2.6 (2.0-3.5)
[2017-07-15 08:48] VITALS: BP 103/53
[2017-07-15 12:00] VITALS: BP 89/45
[2017-07-15 16:00] VITALS: BP 120/50
[2017-07-15 20:00] VITALS: BP 119/50
[2017-07-16] VITALS: BP 127/74
[2017-07-16 08:00] VITALS: BP 107/44
== END 2017-07-16 13:13 | DRG 853 ==
LOC: ED 13:13 → EDHOLD 16:08 → 5E 16:08 → ICCU 16:08 → 5E 07-06 13:16
PROVIDERS: Emergency Medicine; Internal Medicine; Internal Medicine Critical Care Medicine
PROC: 06H03DZ Insertion of Intraluminal Device into Inferior Vena Cava, Percutaneous Approach (ICD-10-PCS; principal; 2017-07-03)
PROC: 30233N1 Transfusion of Nonautologous Red Blood Cells into Peripheral Vein, Percutaneous Approach (ICD-10-PCS; 2017-07-04)
PROC: 30233R1 Transfusion of Nonautologous Platelets into Peripheral Vein, Percutaneous Approach (ICD-10-PCS; 2017-07-07)
DX: A41.9 Sepsis, unspecified organism (principal); I21.A1 Myocardial infarction type 2; I26.99 Other pulmonary embolism without acute cor pulmonale; J96.21 Acute and chronic respiratory failure with hypoxia; E43 Unspecified severe protein-calorie malnutrition; R65.21 Severe sepsis with septic shock; I48.91 Unspecified atrial fibrillation; I82.413 Acute embolism and thrombosis of femoral vein, bilateral; J18.0 Bronchopneumonia, unspecified organism; I48.92 Unspecified atrial flutter; C79.51 Secondary malignant neoplasm of bone; J95.84 Transfusion-related acute lung injury (TRALI); C34.91 Malignant neoplasm of unspecified part of right bronchus or lung; J44.1 Chronic obstructive pulmonary disease with (acute) exacerbation; N39.0 Urinary tract infection, site not specified; J44.0 Chronic obstructive pulmonary disease with (acute) lower respiratory infection; I82.433 Acute embolism and thrombosis of popliteal vein, bilateral; I82.443 Acute embolism and thrombosis of tibial vein, bilateral; L89.152 Pressure ulcer of sacral region, stage 2; L89.312 Pressure ulcer of right buttock, stage 2; L89.322 Pressure ulcer of left buttock, stage 2; D64.81 Anemia due to antineoplastic chemotherapy; G62.9 Polyneuropathy, unspecified; D69.59 Other secondary thrombocytopenia; R07.81 Pleurodynia; G89.3 Neoplasm related pain (acute) (chronic); K21.9 Gastro-esophageal reflux disease without esophagitis; T45.1X5A Adverse effect of antineoplastic and immunosuppressive drugs, initial encounter; E86.0 Dehydration; M81.0 Age-related osteoporosis without current pathological fracture; I10 Essential (primary) hypertension; N40.0 Benign prostatic hyperplasia without lower urinary tract symptoms; E78.00 Pure hypercholesterolemia, unspecified; E55.9 Vitamin D deficiency, unspecified; Z66 Do not resuscitate; Z51.5 Encounter for palliative care; Y84.8 Other medical procedures as the cause of abnormal reaction of the patient, or of later complication, without mention of misadventure at the time of the procedure; Y92.238 Other place in hospital as the place of occurrence of the external cause; D63.8 Anemia in other chronic diseases classified elsewhere; T45.515A Adverse effect of anticoagulants, initial encounter; G40.909 Epilepsy, unspecified, not intractable, without status epilepticus; D53.9 Nutritional anemia, unspecified; M19.90 Unspecified osteoarthritis, unspecified site; R62.7 Adult failure to thrive; E78.2 Mixed hyperlipidemia; I25.10 Atherosclerotic heart disease of native coronary artery without angina pectoris; R29.6 Repeated falls; F41.1 Generalized anxiety disorder; Z87.891 Personal history of nicotine dependence; Z86.73 Personal history of transient ischemic attack (TIA), and cerebral infarction without residual deficits; Z95.828 Presence of other vascular implants and grafts; D63.0 Anemia in neoplastic disease; Z79.899 Other long term (current) drug therapy; Z79.82 Long term (current) use of aspirin; Z91.81 History of falling; Z90.49 Acquired absence of other specified parts of digestive tract; Z79.01 Long term (current) use of anticoagulants; Z79.52 Long term (current) use of systemic steroids; I25.2 Old myocardial infarction; Z82.3 Family history of stroke; Z68.22 Body mass index [BMI] 22.0-22.9, adult; Y92.89 Other specified places as the place of occurrence of the external cause